=== PATIENT | male | born 1985 | race Caucasian/White ===

== ENCOUNTER 2023-03-21 14:38 | Emergency (ER) | payer MEDICAID, SELFPAY ==
[2023-03-21 14:41] VITALS: BP 112/62; PULSE 91; RESP 18; TEMP 36.3; O2SAT 99
--- NOTE | 2023-03-21 15:29 | ED.GENADUL_ITS ---
Discharge Plan Disposition Patient Disposition: Home Discharge Details Clinical Impression: Cellulitis of left leg without foot Primary Care Provider: Unknown,Unknown ED Provider: Sandor Chambers Home Meds and New Rx's Prescriptions: New cefpodoxime 200 mg tablet 200 mg PO Q12H 5 Days Qty: 10 0RF Rx Instructions: must administer with a meal/food sulfamethoxazole-trimethoprim [Bactrim DS] 800-160 mg tablet 1 tab PO BID 5 Days Qty: 10 0RF Discharge Instructions Instructions: Cellulitis (ED) Additional Instructions: You were seen in the emergency department for your red leg for which you were diagnosed with a skin infection called cellulitis. Please take these antibiotics as directed. If your swelling does not improve in the next 2 days or worsens or you develop fevers or cannot eat or drink as result of nausea or vomiting please return to the emergency department. Please also return if you develop worsening pain in your left lower extremity. Discharge Data Discharge Date/Time-TO BE ENTERED AT DEPARTURE: 03/21/23 16:23 HPI General Date/Time Provider Initiated Documentation: 03/21/23 14:46 . HPI Narrative: MDM This is an overall well-appearing afebrile and not tachycardic 37-year-old male with left lower extremity erythema and tenderness most consistent with cellulitis for which patient will receive oral treatment with trimethoprim/sulfamethoxazole and cefpodoxime. No pain out of proportion to suggest necrotizing soft tissue infection. No fluctuance to suggest abscess. No posterior calf tenderness to suggest DVT. No history of trauma to suggest acute osseous abnormalities will defer plain films. No reported IV drug use so I am not suspicious for any retained foreign bodies. Patient was not meeting SIRS criteria and did not appear septic so I did not obtain a lactate blood cultures nor treat empirically with IV antibiotics. Patient does not have a primary care locally. Given that he tolerated p.o. and denies any fevers I feel he warrants empiric trial of expectant outpatient management. I did counseling services manager him that the swelling could worsen over the next 48 hours but that it should improve from there. Patient is PERC negative and not short of breath. I strongly urged ED return for worsening swelling after 48 hours, any rapid changes in his pain, or any inability to tolerate p.o. Patient understood his return indications and we will proceed with empiric trial of expectant outpatient management. Chronic conditions affecting the care of the patient: Depression methadone use History obtained from an outside historian: Patient's External record [place] [facility] [place] Medications: Antibiotics Social determinants of health affecting disposition: N/A Management discussed with: N/A Treatment/interventions considered: Labs but deferred Response to therapies provided: N/A HPI This is a 37-year-old male on outpatient bupropion methadone and gabapentin arrives emergency department via private vehicle in the setting of left lower extremity redness which began yesterday. Patient denies any trauma to his left lower extremity. He does have some discomfort. He denies IV drug use. He has not been nauseous nor vomiting. He denies fevers and chills. No chest pain no abdominal pain. No history of PE nor DVT. No hemoptysis. Exam General: Well-appearing in no acute distress speaking in complete sentences. Head: Normocephalic, atraumatic. Eye: Extraocular eye movements intact. No conjunctival injection. No scleral icterus. Ear, nose, mouth, throat: Grossly normal inspection. Normal voice, handling secretions normally. Neck: Trachea midline. Cardiovascular: Well-perfused distal extremities. Respiratory: Nonlabored respiration. Gastrointestinal: Nondistended abdomen. Musculoskeletal: Overlying the anterior aspect of the left lower extremity from the distal third of the beatty there is an approximately 5 x 5 cm erythematous area which is mildly tender. No fluctuance. No pain out of proportion. Left foot warm and well-perfused with 2+ PT and DP pulses. Photo of affected area as follows: Skin: Normal for age and race, grossly normal temperature and turgor. No acute rash. Neurologic: Alert and appropriate, no apparent acute deficits. Psychiatric: Mood and manner are appropriate. Grooming and personal hygiene are appropriate. Related Data Home Medications Medication Instructions Recorded Confirmed cefpodoxime 200 mg tablet 200 mg PO Q12H 5 days #10 tabs 03/21/23 sulfamethoxazole 800 1 tab PO BID 5 days #10 tabs 03/21/23 mg-trimethoprim 160 mg tablet (Bactrim DS) Previous Rx's Medication Instructions Recorded cefpodoxime 200 mg tablet 200 mg PO Q12H 5 days #10 tabs 03/21/23 sulfamethoxazole 800 1 tab PO BID 5 days #10 tabs 03/21/23 mg-trimethoprim 160 mg tablet (Bactrim DS) Allergies Allergy/AdvReac Type Severity Reaction Status Date / Time cillian Allergy Unknown Uncoded 03/21/23 14:45 General Stated Complaint: Cellulitis SALVADOR: 3 PFSH All Active Problems (Updated 03/21/23 @ 15:56 by Sandor Chambers MD) Cellulitis of left leg without foot (Acute) Social History Smoking/Tobacco Use Status: Current-Occasional Tobacco Type: cigarettes Smoking risk assessment performed?: Yes Alcohol Intake: never Drug use: Daily Substance use type: marijuana Course Vital Signs Vital signs: Vital Signs Temperature 36.3 C L 03/21/23 14:41 Pulse 91 H 03/21/23 14:41 Respiratory Rate 18 03/21/23 14:41 Blood Pressure 112/62 03/21/23 14:41 Pulse Oximetry 99 03/21/23 14:41 Temperature 36.3 C L 03/21/23 14:41 Temperature Source Temporal Artery Scan 03/21/23 14:41 Pulse 91 H 03/21/23 14:41 Respiratory Rate 18 03/21/23 14:41 Respiratory Effort Normal, Non-Labored 03/21/23 14:45 Blood Pressure 112/62 03/21/23 14:41 Blood Pressure Position Sitting 03/21/23 14:41 Pulse Oximetry 99 03/21/23 14:41 Oxygen Delivery Method Room Air 03/21/23 14:41 Oxygen Flow Rate 0 03/21/23 14:41
[2023-03-21] MEDS: Cefpodoxime 200 MG TAB PO (16:09)
[2023-03-21] MEDS: Sulfameth/Trimeth DS TAB 1 TAB PO (16:09)
== END 2023-03-21 16:23 | disposition home or self-care (01) ==
PROVIDERS: Emergency Provider Emergency Medicine
DX: L03.116 Cellulitis of left lower limb (principal); F17.210 Nicotine dependence, cigarettes, uncomplicated
CPT/HCPCS: 99283

== ENCOUNTER 2023-04-29 17:24 | Emergency (ER) | payer MEDICAID, SELFPAY ==
[2023-04-29 17:27] VITALS: BP 128/101; PULSE 85; RESP 16; TEMP 36.7; O2SAT 99
--- NOTE | 2023-04-29 17:30 | DI.CT_ITS ---
Exam(s) CT CHEST/ABD/PEL W EXAM: CT CHEST/ABD/PEL W CLINICAL HISTORY: Hematemesis, SOB, epigastric pain, and chest pain TECHNIQUE: Imaging Protocol: Axial computed tomography images with coronal and sagittal reformatted images were created and reviewed CONTRAST MATERIAL: Intravenous: Omnipaque. Contrast volume:100 mL Oral: No COMPARISON: No exams were available for comparison FINDINGS: CHEST: Tracheobronchial tree: Patent where visualized. Pulmonary parenchyma: No consolidation or dominant measurable mass. No architectural distortion. Visualized thyroid gland: Unremarkable. Mediastinum and Linh: No dominant adenopathy or fluid collection. The esophagus is unremarkable. The re is triangular soft tissue seen in the anterior mediastinum most consistent with residual thymic ti ssue. Pleura: No effusion or pneumothorax. Heart: The heart is not dilated. No coronary artery calcifications are seen. No pericardial effusion. Pulmonary arteries: Due to the timing of the bolus, the opacification of the pulmonary arteries is in adequate for pulmonary emboli evaluation. No large central pulmonary emboli are seen. Aorta: Thoracic aorta non-dilated. Lymph nodes: Within normal limits. Soft tissues: Unremarkable. Bones:Within normal limits for the patient's age. ABDOMEN: Liver: Normal density. There is a 6 mm hypodensity in the anterior segment of the right lobe of the l iver. This may represent a small cyst or hemangioma. No follow-up is recommended. Portal, Superior Mesenteric, and Splenic Veins: Unremarkable. Gallbladder and Biliary Tract: No stones are seen. The common duct measures 1.1 cm. Pancreas: Normal density, no abnormal calcifications or inflammatory process. Spleen: Normal. Adrenals: No masses seen. Kidneys: Normal size, contour and axis. No radiodense stones or obstructive uropathy. No masses seen. Abdominal Aorta: Abdominal portion non-dilated. Bowel: There is mild wall thickening in the ascending colon and mild pericolonic inflammatory changes . There is no evidence of bowel obstruction. Appendix is unremarkable. Peritoneal Cavity: No ascites, collection or mesenteric inflammatory response. No free air. Lymph Nodes: Within normal limits. Bones: Within normal limits for the patient's age. Soft Tissues: Unremarkable. PELVIS: Bladder: Symmetric distention, no gross wall thickening. Reproductive Organs: Unremarkable as visualized. Lymph Nodes: Within normal limits. Bones: Within normal limits. IMPRESSION: 1. No acute pulmonary process. 2. Mild wall thickening seen in the ascending colon suspicious for colitis. 3. Dilatation of the extrahepatic common bile duct. No evidence of a pancreatic mass or cholelithias is. Right upper quadrant ultrasound is recommended for further evaluation. If further imaging is wa rranted, MRCP may be obtained. Unexpected findings RADIATION DOSE DELIVERED: Total DLP DATA REPOSITORY: All CT scans at this facility are submitted to the National Radiology Data Registry (NRDR) Dose Index Registry (DIR) with the [employer] ([employer]). RADIATION OPTIMIZATION: All CT scans at this facility use at least one of these dose optimization te chniques: automated exposure control; mA and/or kV adjustment per patient size (includes targeted exa ms where dose is matched to clinical indication); or iterative reconstruction.
--- NOTE | 2023-04-29 17:46 | W.ED.GENAD ---
Discharge Plan Disposition Patient Disposition: Home Condition: Good Discharge Details Clinical Impression: Nausea & vomiting Primary Care Provider: None,None ED Provider: Ar Pierce Home Meds and New Rx's Prescriptions: New sucralfate [Carafate] 1 gram tablet 1 g PO BID Qty: 60 0RF pantoprazole [Protonix] 40 mg tablet,delayed release (DR/EC) 40 mg PO DAILY Qty: 60 0RF famotidine 20 mg tablet 20 mg PO BID Qty: 60 0RF No Action gabapentin 300 mg capsule 300 mg PO TID methadone 10 mg/mL concentrate 120 mg PO QDAY Cotempla XR-ODT 25.9 mg tablet,disinteg ER biphase 24h 25.9 mg PO DAILY Patient Comments: pt states he takes 20mg BID Discharge Instructions Instructions: Gastritis (ED), Acute Nausea and Vomiting (ED) Additional Instructions: At this time your blood work has returned and your blood levels are all very normal. Your CAT scan shows no significant abnormalities thankfully. There is concern that you are having irritation in your stomach lining secondary to a virus and potentially the alcohol as well. It is important that you avoid any tomato-based products, citrus-based products, or spicy foods. Please avoid all alcohol intake. 3 medications have been sent to your pharmacy on file to help with your stomach irritation. Please take these as directed. Will place a referral with our surgeons for an outpatient surgical evaluation. Please follow-up with them when they contact you for the time. Please follow-up closely with your new primary care provider that you are at trying to establish care with at this time. If you notice any worsening of your symptoms, or any new symptoms such as vomiting, diarrhea, fever, chills, shortness of breath, chest pain, numbness, weakness, or fainting , please return immediately to the emergency department for reevaluation. Please follow up with your primary care provider as soon as possible for reassessment and reevaluation. As always, it was a pleasure participating in your medical care today. Referrals: Grzegorz Guzman MD [ [facility] STAFF PHYSICIAN] - Michelle Dela Cruz DO [OSTEOPATHIC DOCTOR] - Medical Decision Making This is a 37-year-old male with a past medical history of umbilical hernia repair in 2019, previous hepatitis C which was treated, previous significant alcohol abuse, prior opiate abuse, parotid mass, schizophrenia, depression, anxiety, and a reported history of gastric ulcer SIRS and esophageal varices (which could not be found on endoscopy report upon review from [facility] endoscopy note on 05/27/2019) who presents today for evaluation of vomiting, diarrhea, epigastric pain and right foot pain. Patient is currently homeless, he does not have a primary care physician, he does not seek care regularly from medical establishment, he is currently living in a tent, and he states that for the last few months he has had intermittent vomiting with small amounts of blood, however for the last 3 to 4 days he has had notable episodes of vomiting, with about 5 or more episodes per day. Small quarter sized amounts of blood were noted in the vomiting when it began 4 days ago, however at this point he states that there is about 10 quarter sized amounts of blood in his vomiting every time now. He also admits to a few episodes of loose stool which have also had a small amount of red blood noted in them. He did admit to drinking some alcohol 3 days ago secondary to having challenges with the stress and situation of life. He states that otherwise he has not been drinking any alcohol regularly. He is not taking any medications. He denies any other complaints in the upper GI system otherwise. He does admit to mild shortness of breath. He denies any significant chest pain. Additionally he also complains of pain between his fourth and fifth digit on the right foot/toes. He had been having wet shoes for quite some time and his current living predicament, but has been using dry shoes recently. No other complaints. Physical exam demonstrates mild epigastric tenderness, slightly pale skin hue, and a small area of breakdown in the intertriginous area between the fourth and fifth toe on the right foot. Differential is concerning for gastric ulcer causing bleeding and vomiting, pancreatitis, esophageal varices causing bleeding, less likely Annie-Arndt tear or Boerhaave's tear. However because of the patient's symptomatology, history, and clinical picture I do feel that ruling these out is certainly indicated in this scenario. Will get CT imaging of the chest and abdomen. Will rehydrate, give Protonix and famotidine and Carafate. If the patient has continued episodes of vomiting or blood here, we will start octreotide. Upon my review of [facility]'s last endoscopy note there did not appear to be any evidence of varices on that EGD. In fact most recent EGD in 2019 showed no significant abnormalities in the stomach or esophagus. I could not find any other records of prior endoscopy otherwise. Will hold off on octreotide for this reason at this time. We will type and screen, monitor closely rehydrate and reassess. I do feel that with the patient's current housing status, his current vomiting and reported bleeding, admission for stabilization and EGD is indicated. In regard to the patient's right foot, no emergent intervention indicated here at this time. I did recommend to the patient and his significant other who is at bedside that treatment will be from keeping space between the fourth and the fifth toe, allowing that area to dry, keeping socks and shoes regularly dry, and healing will occur with time as there is thankfully no evidence of infection currently. 9:58 PM On reassessment the patient is doing much better. He is tolerated p.o. well, no more vomiting. Abdominal pain is resolved. Vital signs remained stable. Laboratory workup shows no white count, hemoglobin normal, platelet count normal. Patient feels much better. I did contact the surgeon Dr. Buck who does not recommend any emergent interventions at this point. Chief recommendation is for outpatient PCP follow-up. Although admission and urgent EGD has not been recommended, I still do feel that the patient would benefit from outpatient surgical follow-up. The patient is currently having his records transferred to [facility] but has not been able to have an appointment with them yet. We will place a surgical referral for outpatient assessment. On reassessment patient no longer demonstrates any abdominal tenderness. With his ability to tolerate p.o. intact, no more vomiting, no evidence of hematemesis or diarrhea here whatsoever, I do feel that outpatient discharge with close surgical follow-up, and prompt return if his symptoms worsen or return is reasonable at this time. Family and patient agree. Patient will be discharged home. Discussed red flags for which to return. Will give a bottle of Zofran to go, as well as a prescription for Carafate Protonix and famotidine for home use. I have extensively reviewed the treatment plan and discharge instructions with the patient and their family. I have addressed all patient concerns at this time. The patient and family was made aware of what symptoms to monitor for that would warrant a return to the emergency department. Discussed the plan with the patient and family, they demonstrate verbal understanding and agreement with our assessment and plan at this time. The documentation in this chart was dictated using [employer] dictation software. Please excuse any dictation errors. FINDINGS: Lungs: Lungs are clear bilaterally. No consolidation. No infiltrates or edema. Pleural spaces: No pleural effusion. No pneumothorax. Heart: Normal heart size. No pericardial effusion. No coronary artery atherosclerotic calcium. Lymph nodes: Unremarkable. No enlarged lymph nodes. Vasculature: Thoracic aorta is unremarkable in appearance. Bones/joints: No acute skeletal pathology. Thoracic spine is unremarkable in appearance. Soft tissues: Chest wall soft tissues are unremarkable. IMPRESSION: 1. No acute findings of the lungs or pleural space. 2. Normal cardiac structures and mediastinal contents. FINDINGS: Liver: Liver is unremarkable in size and contour. There is a central right hepatic low-attenuation focus measuring 8 mm most consistent with a small benign cyst or possibly a hemangioma. No further imaging follow-up is recommended. Gallbladder and bile ducts: Partially contracted gallbladder. No gallstones. No biliary ductal dilatation or inflammatory features. Pancreas: The pancreas is normal in contour and attenuation. Spleen: The spleen is normal in size, contour and attenuation. Adrenal glands: The adrenal glands are normal in size and contour bilaterally. Kidneys and ureters: The kidneys bilaterally are unremarkable. Normal attenutation. No hydronephrosis. No calculi. Stomach and bowel: Gastric morphology is unremarkable. No edema. No gastric outlet obstruction. Small bowel loops with features suggesting an enteritis process. Minor fluid retention and scattered air-fluid levels. No gary edema. Large bowel is normal in course. There is mild edema of the right colon. Transverse colon and descending colon are unremarkable. Rectosigmoid region is unremarkable. Appendix: A non inflamed appendix is identified. Series 4: Images 111 through 114. Intraperitoneal space: No free fluid. No free air. Vasculature: Unremarkable. No abdominal aortic aneurysm. Lymph nodes: Unremarkable. No enlarged lymph nodes. Urinary bladder: Urinary bladder is unremarkable in appearance. No wall thickening. No intravesicular calculi. No intravesicular gas. Reproductive: Unremarkable as visualized. Bones/joints: No acute skeletal changes. Soft tissues: Unremarkable. IMPRESSION: 1. Enterocolitis process without mechanical obstruction. No ischemic features. 2. No free fluid or free air Thank you for allowing us to participate in the care of your patient. Dictated and Authenticated by: Christiano Darby MD 04/29/2023 9:27 PM Eastern Time ([place] & [place]) HPI General Date/Time Provider Initiated Documentation: 04/29/23 17:26. HPI Narrative: This is a 37-year-old male with a past medical history of umbilical hernia repair in 2019, previous hepatitis C which was treated, previous significant alcohol abuse, prior opiate abuse, parotid mass, schizophrenia, depression, anxiety, and a reported history of gastric ulcer SIRS and esophageal varices (which could not be found on endoscopy report upon review from [facility] endoscopy note on 05/27/2019) who presents today for evaluation of vomiting, diarrhea, epigastric pain and right foot pain. Patient is currently homeless, he does not have a primary care physician, he does not seek care regularly from medical establishment, he is currently living in a tent, and he states that for the last few months he has had intermittent vomiting with small amounts of blood, however for the last 3 to 4 days he has had notable episodes of vomiting, with about 5 or more episodes per day. Small quarter sized amounts of blood were noted in the vomiting when it began 4 days ago, however at this point he states that there is about 10 quarter sized amounts of blood in his vomiting every time now. He also admits to a few episodes of loose stool which have also had a small amount of red blood noted in them. He did admit to drinking some alcohol 3 days ago secondary to having challenges with the stress and situation of life. He states that otherwise he has not been drinking any alcohol regularly. He is not taking any medications. He denies any other complaints in the upper GI system otherwise. He does admit to mild shortness of breath. He denies any significant chest pain. Additionally he also complains of pain between his fourth and fifth digit on the right foot/toes. He had been having wet shoes for quite some time and his current living predicament, but has been using dry shoes recently. No other complaints. Related Data Home Medications Medication Instructions Recorded Confirmed famotidine 20 mg tablet 20 mg PO BID #60 tabs 04/29/23 gabapentin 300 mg capsule 300 mg PO TID 04/29/23 04/29/23 methadone 10 mg/mL oral concentrate 120 mg PO QDAY 04/29/23 04/29/23 methylphenidate 25.9 mg ER,IR 25.9 mg PO DAILY 04/29/23 04/29/23 disintegrating 24 hr tablet (Cotempla XR-ODT) pantoprazole 40 mg tablet,delayed 40 mg PO DAILY #60 tabs 04/29/23 release (Protonix) sucralfate 1 gram tablet (Carafate) 1 g PO BID #60 tabs 04/29/23 Previous Rx's Medication Instructions Recorded famotidine 20 mg tablet 20 mg PO BID #60 tabs 04/29/23 pantoprazole 40 mg tablet,delayed 40 mg PO DAILY #60 tabs 04/29/23 release (Protonix) sucralfate 1 gram tablet (Carafate) 1 g PO BID #60 tabs 04/29/23 Allergies Allergy/AdvReac Type Severity Reaction Status Date / Time cillian Allergy Unknown Uncoded 04/29/23 17:31 General Stated Complaint: Abd Prob SALVADOR: 3 Review of Systems All systems reviewed & are unremarkable except as noted in HPI and below PFSH All Active Problems (Updated 04/29/23 @ 21:45 by Ar Pierce DO) Nausea & vomiting (Acute) Social History Smoking/Tobacco Use Status: Current every day Tobacco Type: cigarettes Smoking risk assessment performed?: Yes Alcohol Intake: current Alcohol Intake frequency: holidays/special occasions only Alcohol type: hard liquor Drug use: Daily Substance use type: marijuana Housing: homeless Do you feel safe at home: Yes Do you feel safe in your relationship?: Yes Exam Narrative Exam Narrative: 1.Const: Well-nourished, Well-developed, appearing stated age 2.Eyes: PERRL, no conjunctival injection, and symmetrical lids. 3.ENT: Atraumatic external nose and ears. Moist MM. Neck: Symmetric, trachea midline, No thyromegaly. 4.CVS: +S1/S2, No murmurs or gallops. Peripheral pulses 2+ and equal in all extremities. Brisk capillary refill in all extremities. 5.RESP: Unlabored respiratory effort. Clear to auscultation bilaterally. No wheezes rales or rhonchi 6.GI: Soft, nondistended. Epigastric tenderness is noted on palpation. No pain to the lower abdomen. 7.MSK: Normocephalic/Atraumatic, Extremities w/o deformity or ttp No cyanosis or clubbing, Normal movement of all extremities. Evaluation of the interdigital space between the fourth and fifth digit on the right foot demonstrates an area of breakdown in the superfluous skin fold. There appears to be no evidence of redness or active infectious ulceration. The skin itself is broken down causing a small cavity in the superfluous skin, but not going into the body of the foot. No drainage or discharge. The remainder of his toes are otherwise unremarkable on exam. 8.Skin: Warm, Dry. 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 Sensation grossly intact, no focal neurologic deficits. 10.Psych: (AAO) x3. Appropriate mood and affect Course Vital Signs Vital signs: Vital Signs Temperature 36.7 C 04/29/23 17:27 Pulse 85 04/29/23 17:27 Respiratory Rate 16 04/29/23 17:27 Blood Pressure 128/101 H 04/29/23 17:27 Pulse Oximetry 99 04/29/23 17:27 Temperature 36.7 C 04/29/23 17:27 Temperature Source Oral 04/29/23 17:27 Pulse 85 04/29/23 17:27 Respiratory Rate 16 04/29/23 17:27 Blood Pressure 128/101 H 04/29/23 17:27 Blood Pressure Position Sitting 04/29/23 17:27 Pulse Oximetry 99 04/29/23 17:27 Oxygen Delivery Method Room Air 04/29/23 17:27 Oxygen Flow Rate 0 04/29/23 17:27
[2023-04-29] MEDS: Normal Saline 1,000 ML 1000 ML IV (18:02)
[2023-04-29] MEDS: Famotidine 20 MG/2 ML VIAL IVP (18:03)
[2023-04-29] MEDS: Ondansetron 4 MG/2 ML VIAL IVP (18:04)
[2023-04-29] MEDS: Pantoprazole 40 MG VIAL IVP (18:04)
[2023-04-29] MEDS: Sucralfate 1 GM TAB PO (18:04)
[2023-04-29 18:18] LABS: Abs Immature Grans 0.02 10^3/uL (0.0-0.06); Absolute Basophil Count 0.05 10^3/uL (0.0-0.2); Absolute Eosinophil Count 0.04 10^3/uL (0.0-0.7); Absolute Lymphocyte Count 2.16 10^3/uL (1.2-3.4); Absolute Monocyte Count 0.45 10^3/uL (0.1-0.8); Absolute Neutrophil Count 4.28 10^3/uL (1.2-6.7); Basophils % 0.7; Eosinophils % 0.6; HCT 42.5 % (40.0-50.0); HGB 13.9 g/dL (13.5-17.5); Immature Grans % 0.3; Lymphocytes % 30.9; MCH 27.3 pg (27.0-33.0); MCHC 32.7 % (32.0-36.0); MCV 83 fL (80-95); MPV 10.3 fL (8.0-11.0); Monocytes % 6.4; Neutrophils % 61.1; Platelet Count 284 10^3/uL (130-400); RDW 13.2 % (11.8-14.1); RDW-SD 40.1 fL
[2023-04-29 18:30] LABS: PTT Activated 26.3 sec (23.6-32.8); Prothrombin Time 10.4 sec (9.1-11.1)
[2023-04-29 18:34] LABS: ALT 33 U/L (16-63); AST 26 U/L (15-37); Albumin 4.3 g/dL (3.4-5.0); Alkaline Phosphatase 84 U/L (46-116); Anion Gap 13.2 mmol/L (3-11); BUN 16 mg/dL (7-18); Bilirubin, Total 0.3 mg/dL (0.2-1.0); CO2 26.8 mmol/L (21.0-32.0); CREATININE 1.2 mg/dL (0.70-1.30); Calcium 9.5 mg/dL (8.5-10.1); Chloride 103 mmol/L (98-107); Estimated GFR 80.88 (mL/min/1.73m2); Glucose 85 mg/dL (74-106); Lipase 25 U/L (16-77); Potassium 3.6 mmol/L (3.5-5.1); Sodium 143 mmol/L (136-145); Total Protein 7.9 g/dL (6.4-8.2)
[2023-04-29 18:37] LABS: Magnesium 2.2 mg/dL (1.8-2.4)
[2023-04-29 19:21] VITALS: PULSE 70; RESP 18; O2SAT 98
[2023-04-29] MEDS: Omnipaque 350 MG/ML 100 ML BTL IJ (20:03)
--- NOTE | 2023-04-29 21:27 | DI.VRAD_ITS ---
PROCEDURE INFORMATION: Exam: CT Chest With Contrast; Diagnostic Exam date and time: 04/29/2023 7:51 PM Age: 37 years old Clinical indication: Other: Epigastric pain; Shortness of breath TECHNIQUE: Imaging protocol: Diagnostic computed tomography of the chest with contrast. 3D rendering (Not supervised by radiologist): MIP and/or 3D reconstructed images were created by the technologist. Contrast material: OMNIPAQUE 350; Contrast volume: 100 ml; Contrast route: INTRAVENOUS (IV); COMPARISON: No relevant prior studies available. FINDINGS: Lungs: Lungs are clear bilaterally. No consolidation. No infiltrates or edema. Pleural spaces: No pleural effusion. No pneumothorax. Heart: Normal heart size. No pericardial effusion. No coronary artery atherosclerotic calcium. Lymph nodes: Unremarkable. No enlarged lymph nodes. Vasculature: Thoracic aorta is unremarkable in appearance. Bones/joints: No acute skeletal pathology. Thoracic spine is unremarkable in appearance. Soft tissues: Chest wall soft tissues are unremarkable. IMPRESSION: 1. No acute findings of the lungs or pleural space. 2. Normal cardiac structures and mediastinal contents. PROCEDURE INFORMATION: Exam: CT Abdomen And Pelvis With Contrast Exam date and time: 04/29/2023 7:51 PM Age: 37 years old Clinical indication: Other: Epigastric pain; Shortness of breath TECHNIQUE: Imaging protocol: Computed tomography of the abdomen and pelvis with contrast. 3D rendering (Not supervised by radiologist): MIP and/or 3D reconstructed images were created by the technologist. Contrast material: OMNIPAQUE 350; Contrast volume: 100 ml; Contrast route: INTRAVENOUS (IV); COMPARISON: No relevant prior studies available. FINDINGS: Liver: Liver is unremarkable in size and contour. There is a central right hepatic low-attenuation focus measuring 8 mm most consistent with a small benign cyst or possibly a hemangioma. No further imaging follow-up is recommended. Gallbladder and bile ducts: Partially contracted gallbladder. No gallstones. No biliary ductal dilatation or inflammatory features. Pancreas: The pancreas is normal in contour and attenuation. Spleen: The spleen is normal in size, contour and attenuation. Adrenal glands: The adrenal glands are normal in size and contour bilaterally. Kidneys and ureters: The kidneys bilaterally are unremarkable. Normal attenutation. No hydronephrosis. No calculi. Stomach and bowel: Gastric morphology is unremarkable. No edema. No gastric outlet obstruction. Small bowel loops with features suggesting an enteritis process. Minor fluid retention and scattered air-fluid levels. No gary edema. Large bowel is normal in course. There is mild edema of the right colon. Transverse colon and descending colon are unremarkable. Rectosigmoid region is unremarkable. Appendix: A non inflamed appendix is identified. Series 4: Images 111 through 114. Intraperitoneal space: No free fluid. No free air. Vasculature: Unremarkable. No abdominal aortic aneurysm. Lymph nodes: Unremarkable. No enlarged lymph nodes. Urinary bladder: Urinary bladder is unremarkable in appearance. No wall thickening. No intravesicular calculi. No intravesicular gas. Reproductive: Unremarkable as visualized. Bones/joints: No acute skeletal changes. Soft tissues: Unremarkable. IMPRESSION: 1. Enterocolitis process without mechanical obstruction. No ischemic features. 2. No free fluid or free air Dictated and Authenticated by: Christiano Darby MD. Ordering:MIGUEL A Joyner MD
--- NOTE | 2023-04-29 21:44 | NUR.NOTE ---
Referral faxed to [facility] to f/u in 1-2 weeks for UGI Bleed.Nursing Note:
[2023-04-29 22:15] VITALS: BP 120/70; PULSE 80; RESP 16; TEMP 36.5; O2SAT 99
[2023-04-29] MEDS: Ondansetron O.D.T. 4 MG TABEF, 3 TABS/BTL PO (22:21)
== END 2023-04-29 22:25 | disposition home or self-care (01) ==
PROVIDERS: Emergency Provider Student in an Organized Health Care Education/Training Program
DX: R11.2 Nausea with vomiting, unspecified (principal); R10.13 Epigastric pain; F17.210 Nicotine dependence, cigarettes, uncomplicated; Z59.02 Unsheltered homelessness
CPT/HCPCS: 74177; 80053; 83690; 86850; 86900; 86901; 96361; 96374; 96375; 99285; 71260; 83735; 85025; 85610; 85730; 99284; J2405; J3490

== ENCOUNTER 2023-07-20 12:33 | Emergency (ER) | payer MEDICAID, SELFPAY ==
[2023-07-20 12:44] VITALS: BP 102/50; PULSE 55; RESP 18; TEMP 36.8; O2SAT 97
--- NOTE | 2023-07-20 13:06 | W.ED.GENAD ---
Discharge Plan Disposition Patient Disposition: Home Condition: Stable Discharge Details Clinical Impression: Tooth pain Primary Care Provider: None,None ED Provider: Cynthia Hsu Home Meds and New Rx's Prescriptions: New clindamycin HCl 150 mg capsule 450 mg PO TID 7 Days Qty: 63 0RF ibuprofen 800 mg tablet 800 mg PO TID PRN (Reason: pain) Qty: 20 0RF No Action gabapentin 300 mg capsule 600 mg PO TID methadone 10 mg/mL concentrate 130 mg PO QDAY sucralfate [Carafate] 1 gram tablet 1 g PO BID Qty: 60 0RF pantoprazole [Protonix] 40 mg tablet,delayed release (DR/EC) 40 mg PO DAILY Qty: 60 0RF methylphenidate HCl 20 mg tablet 20 mg PO BID bupropion HCl 100 mg tablet 200 mg PO BID Discharge Instructions Instructions: Toothache (ED) Additional Instructions: Practice good oral hygiene, rinse mouth out after eating or drinking anything. Apply the hurricaine gel up to three times daily as needed. Please take Tylenol or Ibuprofen with food every 4-6 hours as needed for pain and swelling. Please follow-up with a dentist soon as possible. Follow up with primary care provider in 3-5 days. Return to ED sooner if any worsening or concerns. Increase oral fluids. Discharge Data Discharge Date/Time-TO BE ENTERED AT DEPARTURE: 07/20/23 13:52 HPI General Mode of arrival: ambulatory. Date/Time Provider Initiated Documentation: 07/20/23 12:48. Limitations to Documentation: no limitations. Information obtained by: patient, RN notes reviewed and old records reviewed. HPI Narrative: 37 year old male presents to the ED with chief complaint of left lower tooth broken and swelling with increased swelling which began last night. No area of fluctuance or drainage noted. Has not taken any medications prior to arrival. Related Data Home Medications Medication Instructions Recorded Confirmed gabapentin 300 mg capsule 600 mg PO TID 04/29/23 07/20/23 methadone 10 mg/mL oral concentrate 130 mg PO QDAY 04/29/23 07/20/23 pantoprazole 40 mg tablet,delayed 40 mg PO DAILY #60 tabs 04/29/23 07/20/23 release (Protonix) sucralfate 1 gram tablet (Carafate) 1 g PO BID #60 tabs 04/29/23 07/20/23 bupropion HCl 100 mg tablet 200 mg PO BID 07/20/23 07/20/23 clindamycin HCl 150 mg capsule 450 mg (3 x 150 mg) PO TID 7 days 07/20/23 #63 caps ibuprofen 800 mg tablet 800 mg PO TID PRN pain #20 tabs 07/20/23 methylphenidate HCl 20 mg tablet 20 mg PO BID 07/20/23 07/20/23 Previous Rx's Medication Instructions Recorded pantoprazole 40 mg tablet,delayed 40 mg PO DAILY #60 tabs 04/29/23 release (Protonix) sucralfate 1 gram tablet (Carafate) 1 g PO BID #60 tabs 04/29/23 clindamycin HCl 150 mg capsule 450 mg (3 x 150 mg) PO TID 7 days 07/20/23 #63 caps ibuprofen 800 mg tablet 800 mg PO TID PRN pain #20 tabs 07/20/23 Allergies Allergy/AdvReac Type Severity Reaction Status Date / Time Penicillins Allergy Severe Anaphylaxis Verified 07/20/23 12:44 General Stated Complaint: DentalOral SALVADOR: 4 Review of Systems ENT Ears, Nose, Mouth, and Throat: Reports as per HPI and Reports mouth pain Exam [facility] Teeth image: 1. Broken, surrounding gingival swelling, no abscess or area of fluctuance Course Vital Signs Vital signs: Vital Signs Temperature 36.8 C 07/20/23 12:44 Pulse 55 L 07/20/23 12:44 Respiratory Rate 18 07/20/23 12:44 Blood Pressure 102/50 L 07/20/23 12:44 Pulse Oximetry 97 07/20/23 12:44 Temperature 36.8 C 07/20/23 12:44 Temperature Source Temporal Artery Scan 07/20/23 12:44 Pulse 55 L 07/20/23 12:44 Respiratory Rate 18 07/20/23 12:44 Blood Pressure 102/50 L 07/20/23 12:44 Blood Pressure Position Sitting 07/20/23 12:44 Pulse Oximetry 97 07/20/23 12:44 Oxygen Delivery Method Room Air 07/20/23 12:44 Oxygen Flow Rate 0 07/20/23 12:44 Pain Level 5 07/20/23 12:44 Medical Decision Making 37 year old male presents to the ED with chief complaint of left lower tooth broken and swelling with increased swelling which began last night. No area of fluctuance or drainage noted. Has not taken any medications prior to arrival. Hurricaine gel, Clindamycin, and 800mg Ibuprofen ordered. Will give dental resources and home care. This text was generated using [employer] dictation system, please disregard any oddities of phrase or misspellings. Quality:SDOH Health Related Social Needs: No Data to Display PFSH All Active Problems (Updated 07/20/23 @ 13:09 by Cynthia Hsu NP) Tooth pain (Acute) Social History Smoking/Tobacco Use Status: Current every day Tobacco Type: cigarettes Smoking risk assessment performed?: Yes Alcohol Intake: current Alcohol Intake frequency: holidays/special occasions only Alcohol type: hard liquor Drug use: Daily Substance use type: marijuana Housing: homeless Do you feel safe at home: Yes Do you feel safe in your relationship?: Yes
[2023-07-20] MEDS: Benzocaine 20% Gel 30 GM JAR MM (13:26)
[2023-07-20] MEDS: Ibuprofen 800 MG TAB PO (13:27)
[2023-07-20] MEDS: Clindamycin 150 MG CAP 450 MG PO (13:27)
== END 2023-07-20 13:52 | disposition home or self-care (01) ==
PROVIDERS: Emergency Provider Registered Nurse Emergency
DX: S02.5XXA Fracture of tooth (traumatic), initial encounter for closed fracture (principal); F17.210 Nicotine dependence, cigarettes, uncomplicated; X58.XXXA Exposure to other specified factors, initial encounter
CPT/HCPCS: 99283

== ENCOUNTER 2023-07-25 13:45 | Emergency (ER) | payer MEDICAID, SELFPAY ==
[2023-07-25 13:56] VITALS: BP 129/54; PULSE 60; RESP 18; TEMP 36.4; O2SAT 98
--- NOTE | 2023-07-25 14:35 | ED.GENADUL_ITS ---
Discharge Plan Disposition Patient Disposition: Home Condition: Stable Discharge Details Chief Complaint: Sorethroat Clinical Impression: Viral illness Primary Care Provider: Unknown,Unknown ED Provider: Wilver Vega Home Meds and New Rx's Prescriptions: No Action gabapentin 300 mg capsule 600 mg PO TID methadone 10 mg/mL concentrate 130 mg PO QDAY sucralfate [Carafate] 1 gram tablet 1 g PO BID Qty: 60 0RF pantoprazole [Protonix] 40 mg tablet,delayed release (DR/EC) 40 mg PO DAILY Qty: 60 0RF methylphenidate HCl 20 mg tablet 20 mg PO BID bupropion HCl 100 mg tablet 200 mg PO BID clindamycin HCl 150 mg capsule 450 mg PO TID 7 Days Qty: 63 0RF ibuprofen 800 mg tablet 800 mg PO TID PRN (Reason: pain) Qty: 20 0RF Discharge Instructions Instructions: Viral Syndrome (ED) Additional Instructions: Please follow-up with primary care referral. HPI General Date/Time Provider Initiated Documentation: 07/25/23 13:47 . HPI Narrative: 37-year-old male presents with headache and sore throat over the last day, exposed to son who has strep throat. Related Data Home Medications Medication Instructions Recorded Confirmed gabapentin 300 mg capsule 600 mg PO TID 04/29/23 07/20/23 methadone 10 mg/mL oral concentrate 130 mg PO QDAY 04/29/23 07/20/23 pantoprazole 40 mg tablet,delayed 40 mg PO DAILY #60 tabs 04/29/23 07/20/23 release (Protonix) sucralfate 1 gram tablet (Carafate) 1 g PO BID #60 tabs 04/29/23 07/20/23 bupropion HCl 100 mg tablet 200 mg PO BID 07/20/23 07/20/23 clindamycin HCl 150 mg capsule 450 mg (3 x 150 mg) PO TID 7 days 07/20/23 #63 caps ibuprofen 800 mg tablet 800 mg PO TID PRN pain #20 tabs 07/20/23 methylphenidate HCl 20 mg tablet 20 mg PO BID 07/20/23 07/20/23 Previous Rx's Medication Instructions Recorded pantoprazole 40 mg tablet,delayed 40 mg PO DAILY #60 tabs 04/29/23 release (Protonix) sucralfate 1 gram tablet (Carafate) 1 g PO BID #60 tabs 04/29/23 clindamycin HCl 150 mg capsule 450 mg (3 x 150 mg) PO TID 7 days 07/20/23 #63 caps ibuprofen 800 mg tablet 800 mg PO TID PRN pain #20 tabs 07/20/23 Allergies Allergy/AdvReac Type Severity Reaction Status Date / Time Penicillins Allergy Severe Anaphylaxis Verified 07/20/23 12:44 General Stated Complaint: Sorethroat SALVADOR: 4 Review of Systems Narrative: Review of Systems Constitutional: Headache Eyes: negative ENT: Sore throat Cardiovascular: negative Respiratory: negative Gastrointestinal: negative : negative Musculoskeletal: negative Skin: negative Neurologic: negative Psych: negative Exam Narrative Exam Narrative: Physical Examination General: alert, awake, cooperative, resting comfortably, no acute distress HEENT: normocephalic, atraumatic Neck: supple, trachea midline; full ROM Chest: normal to inspection Respiratory: normal respiratory effort, speaking in full sentences Skin: no lesions, rashes or trauma appreciated Neuro: AAOx3, normal speech, moving all extremities Course Vital Signs Vital signs: Vital Signs Temperature 36.4 C L 07/25/23 13:56 Pulse 60 07/25/23 13:56 Respiratory Rate 18 07/25/23 13:56 Blood Pressure 129/54 L 07/25/23 13:56 Pulse Oximetry 98 07/25/23 13:56 Temperature 36.4 C L 07/25/23 13:56 Pulse 60 07/25/23 13:56 Respiratory Rate 18 07/25/23 13:56 Blood Pressure 129/54 L 07/25/23 13:56 Blood Pressure Position Sitting 07/25/23 13:56 Pulse Oximetry 98 07/25/23 13:56 Oxygen Delivery Method Room Air 07/25/23 13:56 Oxygen Flow Rate 0 07/25/23 13:56 Lab/Test Results Lab/Test Results: 07/25/23 14:33 Tonsil - Not Specified Group A Streptococcus Culture - Pending POC Strep Test-CLEMENCIA(Rapid) Start: 07/25/23 14:10 Freq: Status: Active Protocol: Document 07/25/23 14:10 JAY (Rec: 07/25/23 14:10 JAY [id number]) Strep test-CLEMENCIA(Rapid)-POC POC-Strep test-CLEMENCIA (Rapid) Negative POC-Strep test-CLEMENCIA (Rapid) Negative Medical Decision Making 37-year-old male presents with 1 day of fatigue, headache, sore throat exposed to son who has strep throat. Afebrile nontoxic. Strep negative. Maintaining her tongue secretions. No respiratory distress likely viral illness. Low suspicion for pneumonia or deep space infection of the head or neck. Will provide analgesia anti-inflammatory in the form of dexamethasone. Home care instructions return precautions Quality:SDOH Health Related Social Needs: No Data to Display PFSH All Active Problems (Updated 07/25/23 @ 14:39 by Wilver Vega MD) Viral illness (Acute) Tooth pain (Acute) Social History Smoking/Tobacco Use Status: Current every day Tobacco Type: cigarettes Smoking risk assessment performed?: Yes Alcohol Intake: current Alcohol Intake frequency: holidays/special occasions only Alcohol type: hard liquor Drug use: Daily Substance use type: marijuana Housing: homeless Do you feel safe at home: Yes Do you feel safe in your relationship?: Yes
[2023-07-25] MEDS: Dexamethasone 10 MG/ML VIAL PO (14:50)
--- NOTE | 2023-07-25 14:55 | NUR.NOTE ---
Referral given to Care Management for needs PCP, establish care, routine follow up. Nursing Note:
== END 2023-07-25 14:51 | disposition home or self-care (01) ==
PROVIDERS: Emergency Provider Emergency Medicine
DX: R11.10 Vomiting, unspecified (principal); R07.0 Pain in throat; R51.9 Headache, unspecified; B34.9 Viral infection, unspecified
CPT/HCPCS: 87880; 99283; 87081; J1100

== ENCOUNTER 2023-07-30 23:18 | Emergency (ER) | payer MEDICAID, SELFPAY ==
[2023-07-30 23:20] VITALS: BP 139/89; PULSE 87; RESP 18; TEMP 30.2; O2SAT 98
[2023-07-30] MEDS: Ketorolac 30 MG/ML VIAL IM (23:56)
--- NOTE | 2023-07-30 23:59 | ED.GENADUL_ITS ---
Discharge Plan Disposition Patient Disposition: Home Condition: Good Discharge Details Clinical Impression: Pain, dental Primary Care Provider: Unknown,Unknown ED Provider: Ar Pierce Home Meds and New Rx's Prescriptions: New clindamycin HCl 150 mg capsule 450 mg PO QID 10 Days Qty: 120 0RF No Action gabapentin 300 mg capsule 600 mg PO TID methadone 10 mg/mL concentrate 130 mg PO QDAY sucralfate [Carafate] 1 gram tablet 1 g PO BID Qty: 60 0RF pantoprazole [Protonix] 40 mg tablet,delayed release (DR/EC) 40 mg PO DAILY Qty: 60 0RF methylphenidate HCl 20 mg tablet 20 mg PO BID bupropion HCl 100 mg tablet 200 mg PO BID ibuprofen 800 mg tablet 800 mg PO TID PRN (Reason: pain) Qty: 20 0RF Discharge Instructions Instructions: Toothache (ED) Additional Instructions: Please take the antibiotic as directed. Please follow-up closely with your dentist. Please make sure to call them twice daily, everyone on the list, until you find someone to manage your dental pain/surgical needs. If you notice any worsening of your symptoms, or any new symptoms such as vomiting, diarrhea, fever, chills, shortness of breath, chest pain, numbness, weakness, or fainting , please return immediately to the emergency department for reevaluation. Please follow up with your primary care provider as soon as possible for reassessment and reevaluation. As always, it was a pleasure participating in your medical care today. HPI General Date/Time Provider Initiated Documentation: 07/30/23 23:25 . HPI Narrative: This is a pleasant 37-year-old male with a past medical history of dental caries, methadone use, who is currently homeless, presents today for evaluation of dental pain. Patient was seen initially on 07/20/2023, dental caries were noted on the left, he was prescribed clindamycin 450mg 3 times daily And has been taking that as prescribed. The patient states that his symptoms on the left have improved, however he now has dental pain on the right upper and right lower area. Patient was given a dental sheet, however he has not been able to get a hold of a dentist yet. He denies fever or chills. No difficulty swallowing. No other complaints at this time. Related Data Home Medications Medication Instructions Recorded Confirmed gabapentin 300 mg capsule 600 mg PO TID 04/29/23 07/30/23 methadone 10 mg/mL oral concentrate 130 mg PO QDAY 04/29/23 07/30/23 pantoprazole 40 mg tablet,delayed 40 mg PO DAILY #60 tabs 04/29/23 07/30/23 release (Protonix) sucralfate 1 gram tablet (Carafate) 1 g PO BID #60 tabs 04/29/23 07/30/23 bupropion HCl 100 mg tablet 200 mg PO BID 07/20/23 07/30/23 ibuprofen 800 mg tablet 800 mg PO TID PRN pain #20 tabs 07/20/23 07/30/23 methylphenidate HCl 20 mg tablet 20 mg PO BID 07/20/23 07/30/23 clindamycin HCl 150 mg capsule 450 mg (3 x 150 mg) PO QID 10 days 07/30/23 #120 caps Previous Rx's Medication Instructions Recorded pantoprazole 40 mg tablet,delayed 40 mg PO DAILY #60 tabs 04/29/23 release (Protonix) sucralfate 1 gram tablet (Carafate) 1 g PO BID #60 tabs 04/29/23 ibuprofen 800 mg tablet 800 mg PO TID PRN pain #20 tabs 07/20/23 clindamycin HCl 150 mg capsule 450 mg (3 x 150 mg) PO QID 10 days 07/30/23 #120 caps Allergies Allergy/AdvReac Type Severity Reaction Status Date / Time Penicillins Allergy Severe Anaphylaxis Verified 07/30/23 23:27 General Stated Complaint: DentalOral SALVADOR: 4 Review of Systems All systems reviewed & are unremarkable except as noted in HPI and below Exam Narrative Exam Narrative: 1.Const: Well-nourished, Well-developed, appearing stated age 2.Eyes: PERRL, no conjunctival injection, and symmetrical lids. 3.ENT: Atraumatic external nose and ears. Moist MM. Neck: Symmetric, trachea midline, No thyromegaly. Notable dental caries throughout. No periapical abscess. No evidence of Ludewig's angina. No signs of airway compromise. 4.CVS: +S1/S2, No murmurs or gallops. Peripheral pulses 2+ and equal in all extremities. Brisk capillary refill in all extremities. 5.RESP: Unlabored respiratory effort. Clear to auscultation bilaterally. No wheezes rales or rhonchi 6.GI: Soft, Nontender/Nondistended, No hepatosplenomegaly. No guarding or rebound. 7.MSK: Normocephalic/Atraumatic, Extremities w/o deformity or ttp No cyanosis or clubbing, Normal movement of all extremities 8.Skin: Warm, Dry. No rashes or lesions. 9.Neuro: light fixture servicer II-XII grossly intact. Sensation grossly intact, no focal neurologic deficits. 10.Psych: (AAO) x3. Appropriate mood and affect Course Vital Signs Vital signs: Vital Signs Temperature 30.2 C L 07/30/23 23:20 Pulse 87 07/30/23 23:20 Respiratory Rate 18 07/30/23 23:20 Blood Pressure 139/89 07/30/23 23:20 Pulse Oximetry 98 07/30/23 23:20 Temperature 30.2 C L 07/30/23 23:20 Pulse 87 07/30/23 23:20 Respiratory Rate 18 07/30/23 23:20 Respiratory Effort Normal 07/30/23 23:24 Blood Pressure 139/89 07/30/23 23:20 Pulse Oximetry 98 07/30/23 23:20 Oxygen Delivery Method Room Air 07/30/23 23:20 Oxygen Flow Rate 0 07/30/23 23:20 Pain Level 7 07/30/23 23:20 Medical Decision Making This is a pleasant 37-year-old male with a past medical history of de ntal caries, methadone use, who is currently homeless, presents today for evaluation of dental pain. Patient was seen initially on 07/20/2023, dental caries were noted on the left, he was prescribed clindamycin 450mg 3 times daily And has been taking that as prescribed. The patient states that his symptoms on the left have improved, however he now has dental pain on the right upper and right lower area. Patient was given a dental sheet, however he has not been able to get a hold of a dentist yet. He denies fever or chills. No difficulty swallowing. No other complaints at this time. Exam demonstrates well-appearing male, notable severe dental caries throughout. No evidence of periapical abscess, Ludewig's angina or other concerning abnormality though. I had a long discussion with the patient discussed nuno the importance of dentist follow-up. Recommend calling all the dental offices on the list twice per day until he is able to get somewhere as this will be the solution for his problem. Unfortunately we are at the point of maxing out our antibacterial coverage. Patient does have a penicillin allergy. We will continue the clindamycin for an additional 7 days, at 450 every 6 hours. Which will be an additional dosing per day. I did offer a dental block, however the patient has refused this. Recommend continued NSAIDs at home. Discussed red flags which to return. I have extensively reviewed the treatment plan and discharge instructions with the patient. I have addressed all patient concerns at this time. The patient was made aware of what symptoms to monitor for that would warrant a return to the emergency department. Discussed the plan with the patient, they demonstrate verbal understanding and agreement with our assessment and plan at this time. The documentation in this chart was dictated using [employer] dictation software. Please excuse any dictation errors. Quality:SDOH Health Related Social Needs: No Data to Display PFSH All Active Problems Pain, dental (Acute) Viral illness (Acute) Tooth pain (Acute) Social History Smoking/Tobacco Use Status: Current every day Tobacco Type: cigarettes Smoking risk assessment performed?: Yes Alcohol Intake: former Drug use: Current Sobriety Housing: homeless Do you feel safe at home: Yes Do you feel safe in your relationship?: Yes
[2023-07-31] VITALS: RESP 18; TEMP 36.6
== END 2023-07-31 00:01 | disposition home or self-care (01) ==
LOC: ER 23:55
PROVIDERS: Emergency Provider Student in an Organized Health Care Education/Training Program
DX: R68.84 Jaw pain (principal); Z59.00 Homelessness unspecified; K08.89 Other specified disorders of teeth and supporting structures
CPT/HCPCS: 96372; 99283; J1885

== ENCOUNTER 2023-08-28 18:40 | Emergency (ER) | payer MEDICAID, SELFPAY ==
[2023-08-28 18:59] VITALS: BP 121/79; PULSE 88; RESP 16; TEMP 36.4
[2023-08-28] MEDS: Clindamycin 150 MG CAP, 12 CAPS/BTL 450 MG PO (19:31)
--- NOTE | 2023-08-28 19:46 | ED.GENADUL_ITS ---
Discharge Plan Disposition Patient Disposition: Home Condition: Stable Discharge Details Clinical Impression: Pain, dental Primary Care Provider: Unknown,Unknown ED Provider: Mandy Espinosa Home Meds and New Rx's Prescriptions: New Saccharomyces boulardii [Florastor] 250 mg capsule 250 mg PO BID Qty: 14 0RF clindamycin HCl 150 mg capsule 450 mg PO TID Qty: 36 0RF Continued gabapentin 300 mg capsule 600 mg PO TID methadone 10 mg/mL concentrate 130 mg PO QDAY sucralfate [Carafate] 1 gram tablet 1 g PO BID Qty: 60 0RF pantoprazole [Protonix] 40 mg tablet,delayed release (DR/EC) 40 mg PO DAILY Qty: 60 0RF methylphenidate HCl 20 mg tablet 20 mg PO BID bupropion HCl 100 mg tablet 200 mg PO BID ibuprofen 800 mg tablet 800 mg PO TID PRN (Reason: pain) Qty: 20 0RF Discharge Instructions Instructions: Toothache (ED) Additional Instructions: Please take the antibiotic as prescribed Take the Florastor daily Follow-up with a dentist and return should you have fever, chills, chest pain, shortness of breath, or with any new or worsening complaints HPI General Date/Time Provider Initiated Documentation: 08/28/23 19:14 . HPI Narrative: This 37-year-old male presents with dental pain which has been present for the past several days. He states he just finished an antibiotic for an infection on the right side of his mouth. He has not followed up with the dentist. He denies any fever or chills. He is taking his prescribed methadone without incident. Denies any difficulty swallowing. Related Data Home Medications Medication Instructions Recorded Confirmed gabapentin 300 mg capsule 600 mg PO TID 04/29/23 08/28/23 methadone 10 mg/mL oral concentrate 130 mg PO QDAY 04/29/23 08/28/23 pantoprazole 40 mg tablet,delayed 40 mg PO DAILY #60 tabs 04/29/23 08/28/23 release (Protonix) sucralfate 1 gram tablet (Carafate) 1 g PO BID #60 tabs 04/29/23 08/28/23 bupropion HCl 100 mg tablet 200 mg PO BID 07/20/23 08/28/23 ibuprofen 800 mg tablet 800 mg PO TID PRN pain #20 tabs 07/20/23 08/28/23 methylphenidate HCl 20 mg tablet 20 mg PO BID 07/20/23 08/28/23 Saccharomyces boulardii 250 mg 250 mg PO BID #14 caps 08/28/23 capsule (Florastor) clindamycin HCl 150 mg capsule 450 mg (3 x 150 mg) PO TID #36 caps 08/28/23 Previous Rx's Medication Instructions Recorded pantoprazole 40 mg tablet,delayed 40 mg PO DAILY #60 tabs 04/29/23 release (Protonix) sucralfate 1 gram tablet (Carafate) 1 g PO BID #60 tabs 04/29/23 ibuprofen 800 mg tablet 800 mg PO TID PRN pain #20 tabs 07/20/23 Saccharomyces boulardii 250 mg 250 mg PO BID #14 caps 08/28/23 capsule (Florastor) clindamycin HCl 150 mg capsule 450 mg (3 x 150 mg) PO TID #36 caps 08/28/23 Allergies Allergy/AdvReac Type Severity Reaction Status Date / Time Penicillins Allergy Severe Anaphylaxis Verified 08/28/23 19:07 General Stated Complaint: DentalOral SALVADOR: 4 Course Vital Signs Vital signs: Vital Signs Temperature 36.4 C L 08/28/23 18:59 Pulse 88 08/28/23 18:59 Respiratory Rate 16 08/28/23 18:59 Blood Pressure 121/79 08/28/23 18:59 Temperature 36.4 C L 08/28/23 18:59 Temperature Source Temporal Artery Scan 08/28/23 18:59 Pulse 88 08/28/23 18:59 Respiratory Rate 16 08/28/23 18:59 Respiratory Effort Normal, Non-Labored 08/28/23 19:04 Blood Pressure 121/79 08/28/23 18:59 Pain Level 5 08/28/23 18:59 Medical Decision Making 37-year-old male presenting with dental pain Third visit in the past month for dental pain, widespread dental decay, tenderness with palpation without visible swelling or redness to #21 I discussed risk of antibiotics, patient is aware of these risks and would like an antibiotic, he is not requesting analgesia There is no trismus or evidence of Mor's angina Patient declines a dental block Clindamycin was ordered, Florastor secondary to risk of C. difficile colitis with recurrent antibiotics and referral to dentist, encouraged to call the dentist tomorrow, list supplied No evidence of deep space infection No drainable abscess Speaking in complete sentences, alert and oriented, discharged home in stable c ondition with stable vitals Quality:SDOH Health Related Social Needs: No Data to Display PFSH All Active Problems (Updated 08/28/23 @ 19:23 by MICHELINE Saeed) Pain, dental (Acute) Social History Smoking/Tobacco Use Status: Current every day Tobacco Type: cigarettes Smoking risk assessment performed?: Yes Alcohol Intake: former Drug use: Daily Substance use type: marijuana Housing: homeless Do you feel safe at home: Yes Do you feel safe in your relationship?: Yes
== END 2023-08-28 19:34 | disposition home or self-care (01) ==
PROVIDERS: Emergency Provider Physician Assistant
DX: K08.89 Other specified disorders of teeth and supporting structures (principal); F17.210 Nicotine dependence, cigarettes, uncomplicated
CPT/HCPCS: 99283

== ENCOUNTER 2023-11-20 16:16 | Emergency (ER) | payer MEDICAID, SELFPAY ==
[2023-11-20 16:31] VITALS: BP 102/81; PULSE 107; RESP 16; TEMP 36.8; O2SAT 98
== END 2023-11-20 23:09 | disposition left against medical advice (07) ==
PROVIDERS: Emergency Provider Student in an Organized Health Care Education/Training Program
DX: Z53.21 Procedure and treatment not carried out due to patient leaving prior to being seen by health care provider (principal)

== ENCOUNTER 2023-11-20 21:43 | Emergency (ER) | payer MEDICAID, SELFPAY ==
[2023-11-20 21:47] VITALS: BP 110/80; PULSE 96; RESP 16; TEMP 37; O2SAT 98
--- NOTE | 2023-11-20 22:49 | NUR.NOTE ---
Multiple attempt to call pt back to a room. Pt not in waiting room. Pt can be see in the cameras outside.
--- NOTE | 2023-11-20 23:05 | ED.GENADUL_ITS ---
Discharge Plan Disposition Patient Disposition: Left Without Being Seen Discharge Details Primary Care Provider: Unknown,Unknown ED Provider: John Mosquera [facility] General Mode of arrival: EMS . Date/Time Provider Initiated Documentation: 11/20/23 21:57 . Limitations to Documentation: no limitations . Information obtained by: patient and family . HPI Narrative: Patient presents to ED with complaint of bilateral leg pain. Patient has both legs in splints/casts and the right leg is in an ex-fix. He left [facility] today. He has been here a couple of times today and triaged but would then leave. He has been in and out of the waiting room multiple times on this visit. He has complained constantly about [facility]. He has been rude to staff. He was constantly swearing and taking tone with me while attempting to obtain history. He is also very short and rude to his significant other who was trying to help with history. Related Data Home Medications Medication Instructions Recorded Confirmed gabapentin 300 mg capsule 600 mg PO TID 04/29/23 08/28/23 methadone 10 mg/mL oral concentrate 130 mg PO QDAY 04/29/23 08/28/23 pantoprazole 40 mg tablet,delayed 40 mg PO DAILY #60 tabs 04/29/23 08/28/23 release (Protonix) sucralfate 1 gram tablet (Carafate) 1 g PO BID #60 tabs 04/29/23 08/28/23 bupropion HCl 100 mg tablet 200 mg PO BID 07/20/23 08/28/23 ibuprofen 800 mg tablet 800 mg PO TID PRN pain #20 tabs 07/20/23 08/28/23 methylphenidate HCl 20 mg tablet 20 mg PO BID 07/20/23 08/28/23 Saccharomyces boulardii 250 mg 250 mg PO BID #14 caps 08/28/23 capsule (Florastor) clindamycin HCl 150 mg capsule 450 mg (3 x 150 mg) PO TID #36 caps 08/28/23 Previous Rx's Medication Instructions Recorded pantoprazole 40 mg tablet,delayed 40 mg PO DAILY #60 tabs 04/29/23 release (Protonix) sucralfate 1 gram tablet (Carafate) 1 g PO BID #60 tabs 04/29/23 ibuprofen 800 mg tablet 800 mg PO TID PRN pain #20 tabs 07/20/23 Saccharomyces boulardii 250 mg 250 mg PO BID #14 caps 08/28/23 capsule (Florastor) clindamycin HCl 150 mg capsule 450 mg (3 x 150 mg) PO TID #36 caps 08/28/23 Allergies Allergy/AdvReac Type Severity Reaction Status Date / Time Penicillins Allergy Severe Anaphylaxis Verified 08/28/23 19:07 General Stated Complaint: Orthopedic SALVADOR: 4 Review of Systems Narrative: not obtained Exam Narrative Exam Narrative: Const: WDWN male in NAD. VS per triage Neck: Supple. Trachea midline. Lungs: Normal respiratory effort Neuro: A+O x 3. Normal speech, mentation. Cranial nerves II - XII grossly intact. No gross motor or sensory deficit. Ext: BLE in splints/casts with ex-fix on right Course Vital Signs Vital signs: Vital Signs Temperature 98.6 F 11/20/23 21:47 Pulse 96 H 11/20/23 21:47 Respiratory Rate 16 11/20/23 21:47 Blood Pressure 110/80 11/20/23 21:47 Pulse Oximetry 98 11/20/23 21:47 Temperature 98.6 F 11/20/23 21:47 Temperature Source Temporal Artery Scan 11/20/23 21:47 Pulse 96 H 11/20/23 21:47 Respiratory Rate 16 11/20/23 21:47 Blood Pressure 110/80 11/20/23 21:47 Blood Pressure Position Sitting 11/20/23 21:47 Pulse Oximetry 98 11/20/23 21:47 Oxygen Delivery Method Room Air 11/20/23 21:47 Oxygen Flow Rate 0 11/20/23 21:47 Pain Level 10 11/20/23 21:47 Medical Decision Making Patient asked to refrain from the constant swearing, rude behavior and hostile tone while interacting with staff and myself. This only made him more agitated and hostile. 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 Patient continued to swear and became disrespectful to his significant other. He chose to leave without evaluation and could not contain himself from swearing and being rude to all. [facility] Social History Smoking/Tobacco Use Status: Current every day Tobacco Type: cigarettes Smoking risk assessment performed?: Yes Alcohol Intake: former Drug use: Daily Substance use type: marijuana Housing: homeless Do you feel safe at home: Yes Do you feel safe in your relationship?: Yes
== END 2023-11-20 23:25 | disposition left against medical advice (07) ==
PROVIDERS: Emergency Provider Emergency Medicine
DX: Z53.21 Procedure and treatment not carried out due to patient leaving prior to being seen by health care provider (principal)

== ENCOUNTER 2023-11-23 09:20 | Emergency (ER) | payer MEDICAID, SELFPAY ==
[2023-11-23 09:23] VITALS: BP 125/78; PULSE 69; RESP 18; TEMP 37; O2SAT 96
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
== END 2023-11-23 10:09 | disposition home or self-care (01) ==
LOC: ER 09:53
PROVIDERS: Emergency Provider Physician Assistant
DX: G89.18 Other acute postprocedural pain (principal)
CPT/HCPCS: 99283

== ENCOUNTER 2023-11-24 12:21 | Emergency (ER) | payer MEDICAID, SELFPAY ==
[2023-11-24] VITALS (10 sets, daily range): BP systolic 76–131; BP diastolic 44–76; PULSE 64–72; RESP 15–16; TEMP 36.7; O2SAT 92–100
--- NOTE | 2023-11-24 13:30 | DI.CT_ITS ---
Exam(s) CT HEAD WO EXAM: CT HEAD WO CLINICAL HISTORY: pain. TECHNIQUE: Imaging Protocol: Axial computed tomography images with coronal and sagittal reformatted images were created and reviewed COMPARISON: No exams were available for comparison FINDINGS: Ventricles and Extra axial spaces: Normal in size and morphology for the patient's age. Hemorrhage: None. No evidence of residual recurrent intracranial hemorrhage. Cerebral parenchyma: Normal. Midline shift: None. Brainstem/Cerebellum: Normal. Calvarium: There are findings of prior fractures involving the frontal bones bilaterally and the supe rior and medial left orbital jeffries. There are fractures again seen involving the frontal sinuses. T here is a prior craniotomy and frontal craniectomy. There is a small amount of air seen in the resid ual frontal sinuses. This is likely secondary to the patient's recent surgery. No pneumocephalus. Visualized Paranasal sinuses/Mastoids: The visualized maxillary sinuses, sphenoid sinuses and mastoid air cells are clear. Soft Tissues: Mild stranding is seen in the retro bulbar soft tissues of the left orbit consistent wi th the patient's recent trauma. IMPRESSION: 1. No acute intracranial process. No evidence of recurrent or residual intracranial hemorrhage. 2. Posttraumatic and postsurgical changes as described above. 3. Findings were discussed with Dr. Corona at 2:50 p.m. on 11/24/2023. RADIATION DOSE DELIVERED: 898.85mGy.cm Total DLP DATA REPOSITORY: All CT scans at this facility are submitted to the National Radiology Data Registry (NRDR) Dose Index Registry (DIR) with the [employer] ([employer]). RADIATION OPTIMIZATION: All CT scans at this facility use at least one of these dose optimization te chniques: automated exposure control; mA and/or kV adjustment per patient size (includes targeted exa ms where dose is matched to clinical indication); or iterative reconstruction.
--- NOTE | 2023-11-24 13:30 | DI.RAD_ITS ---
Exam(s) XR TIB/FIB RT XR KNEE RT 2V AP,LAT XR FEMUR RT EXAM: XR FEMUR RT, XR knee RT 2 V and XR tib/fib RT CLINICAL HISTORY: pain, ex fix bleeding. TECHNIQUE: 2D digital imaging was performed of the right femur, right knee and right tib/fib. Seven images were obtained. AP and lateral views were obtained. COMPARISON: There are no priors for comparison. FINDINGS: BONES: There is intramedullary seferino transfixing the comminuted fracture at the midshaft of the right f emur. There is mild callus formation about the fracture site consistent with some interval healing. There is mild displacement of a few of the comminuted fracture fragments. There is an external fixa tor device in the lower femur. There is a sideplate and screws transfixing the lateral tibial platea u fracture. The orthopedic hardware appears in good position. There is a comminuted relatively nond isplaced fracture involving the inferior patella. There is a small knee joint effusion. There is a component of the tibial fracture which extends into the metaphysis and proximal diaphysis. This is n ondisplaced. The distal external fixator device is seen in the mid tibia. There is a question of a lucency through the body of the calcaneus on the cross-table lateral view. This may be caused by ove rlying artifact versus a nondisplaced fracture. Please correlate with the patient's trauma history. SOFT TISSUE: Normal. IMPRESSION: 1. Fractures involving the midshaft of the right femur, the inferior patella, the lateral tibial plat eau and proximal tibia. Please see the above discussion for complete details. 2. Artifact versus nondisplaced fracture involving the calcaneus. Please correlate the patient's tra brendan history. DATA REPOSITORY: RADIATION DOSE DELIVERED:
--- NOTE | 2023-11-24 14:02 | ED.GENADUL_ITS ---
Discharge Plan Disposition Patient Disposition: Home Condition: Stable Discharge Details Clinical Impression: Post-op pain, Hypomagnesemia, Anemia, Dermatitis fungal Primary Care Provider: Unknown,Unknown ED Provider: Catarino Corona Home Meds and New Rx's Prescriptions: New clotrimazole 1 % cream 1 applic topical BID 28 Days Qty: 45 1RF Continued gabapentin 300 mg capsule 600 mg PO TID methadone 10 mg/mL concentrate 130 mg PO QDAY sucralfate [Carafate] 1 gram tablet 1 g PO BID Qty: 60 0RF pantoprazole [Protonix] 40 mg tablet,delayed release (DR/EC) 40 mg PO DAILY Qty: 60 0RF methylphenidate HCl 20 mg tablet 20 mg PO BID bupropion HCl 100 mg tablet 200 mg PO BID ibuprofen 800 mg tablet 800 mg PO TID PRN (Reason: pain) Qty: 20 0RF Saccharomyces boulardii [Florastor] 250 mg capsule 250 mg PO BID Qty: 14 0RF clindamycin HCl 150 mg capsule 450 mg PO TID Qty: 36 0RF Discharge Instructions Instructions: Managing pain after surgery, Hypomagnesemia Additional Instructions: Please follow-up with your primary care physician. Call today to arrange timely follow-up. I have asked the care management assisting coordinating with your primary care team regarding rehab placement. Please follow-up with your orthopedic surgeon as scheduled. Return to the ER immediately for any worsening or new concerning symptoms. HPI General Mode of arrival: EMS . Date/Time Provider Initiated Documentation: 11/24/23 12:38 . Limitations to Documentation: altered mental status . Information obtained by: EMS . HPI Narrative: 38-year-old male00 with history of opioid use disorder, anxiety, recently left [facility] [facility] AGAINST MEDICAL ADVICE on 11/20/2023 after approximately 2 to 3-week hospitalization for treatment of injuries related to 30 foot fall. Patient returns today with concern from his significant other that he is not eating or drinking normally, that he is dehydrated, and that his pain is not adequately controlled. History and review of systems is limited secondary to altered mental status presumed secondary to methadone dosing which was administered just prior to arrival. Related Data Home Medications ?Medication ?Instructions ?Recorded ?Confirmed gabapentin 300 mg capsule 600 mg PO TID 04/29/23 11/24/23 methadone 10 mg/mL oral concentrate 130 mg PO QDAY 04/29/23 11/24/23 pantoprazole 40 mg tablet,delayed 40 mg PO DAILY #60 tabs 04/29/23 11/24/23 release (Protonix) sucralfate 1 gram tablet (Carafate) 1 g PO BID #60 tabs 04/29/23 11/24/23 bupropion HCl 100 mg tablet 200 mg PO BID 07/20/23 11/24/23 ibuprofen 800 mg tablet 800 mg PO TID PRN pain #20 tabs 07/20/23 11/24/23 methylphenidate HCl 20 mg tablet 20 mg PO BID 07/20/23 11/24/23 Saccharomyces boulardii 250 mg 250 mg PO BID #14 caps 08/28/23 11/24/23 capsule (Florastor) clindamycin HCl 150 mg capsule 450 mg (3 x 150 mg) PO TID #36 caps 08/28/23 11/24/23 clotrimazole 1 % topical cream 1 applic topical BID 4 weeks #45 11/24/23 grams Previous Rx's ?Medication ?Instructions ?Recorded pantoprazole 40 mg tablet,delayed 40 mg PO DAILY #60 tabs 04/29/23 release (Protonix) sucralfate 1 gram tablet (Carafate) 1 g PO BID #60 tabs 04/29/23 ibuprofen 800 mg tablet 800 mg PO TID PRN pain #20 tabs 07/20/23 Saccharomyces boulardii 250 mg 250 mg PO BID #14 caps 08/28/23 capsule (Florastor) clindamycin HCl 150 mg capsule 450 mg (3 x 150 mg) PO TID #36 caps 08/28/23 clotrimazole 1 % topical cream 1 applic topical BID 4 weeks #45 11/24/23 grams Allergies Allergy/AdvReac Type Severity Reaction Status Date / Time Penicillins Allergy Severe Anaphylaxis Verified 11/24/23 14:26 General Stated Complaint: GenMedical SALVADOR: 3 Review of Systems Constitutional Constitutional: Denies fever(s) and Reports headache(s) ENT Ears, Nose, Mouth, and Throat: Reports headache(s) Musculoskeletal Comments: Bilateral leg pain right greater than left Neurologic Neurologic: Reports headache(s) Exam Const General: not in acute distress Nutritional Appearance: thin Orientation: alert Limitations: altered mental status Other: Patient intermittently dozing off HENMT Head: normocephalic and atraumatic Mouth: moist mucous membranes Eyes Conjunctivae: normal conjunctivae Sclera: normal sclerae EOM: EOM intact bilaterally Resp Auscultation: clear to auscultation bilaterally, no rales, no rhonchi and no wheezes Cardio Rate: regular rate and not tachycardic Rhythm: regular rhythm GI Palpation: soft, not firm, no guarding, no masses, not rigid and nontender Skin Other: External fixator device wounds bleeding proximally, some serosanguineous discharge, no purulent discharge, no surrounding erythema well demarcated plaque bilateral groin Neuro General: patient alert, patient awake and tone normal Extrem Other: Bilateral lower extremity casts, distal cap refill intact. External fixator device right knee. Psych Affect: labile affect Attitude: cooperative Course Vital Signs Vital signs: Vital Signs Temperature 36.7 C 11/24/23 12:26 Pulse 64 11/24/23 12:26 Respiratory Rate 16 11/24/23 12:26 Blood Pressure 104/50 L 11/24/23 12:26 Pulse Oximetry 99 11/24/23 12:26 Temperature 36.7 C 11/24/23 12:26 Temperature Source Tympanic 11/24/23 12:26 Pulse 64 11/24/23 12:26 Respiratory Rate 16 11/24/23 12:26 Blood Pressure 104/50 L 11/24/23 12:26 Blood Pressure Position Sitting 11/24/23 12:26 Pulse Oximetry 99 11/24/23 12:26 Oxygen Delivery Method Room Air 11/24/23 12:26 Oxygen Flow Rate 0 11/24/23 12:26 Pain Level 10 11/24/23 12:26 Medical Decision Making 1400 --38-year-old male with history of opioid use disorder, anxiety, recently left [facility] AGAINST MEDICAL ADVICE on 11/20/2023 after approximately 2 to 3-week hospitalization for treatment of injuries related to 30 foot fall. Patient returns today with concern from his significant other that he is not eating or drinking normally, that he is dehydrated, and that his pain is not adequately controlled. extracorporeal circulation specialist notes concern for potential infection of Ex-Fix wound. Patient was at the substance abuse clinic just prior to arrival and received his prescribed methadone. His pain is currently well-controlled and he is well sedated. He has been complaining of pain in his legs bilaterally right greater than left. He is also complained of headaches. He has been noncompliant with prescribed medications. His notes significant challenges with transportation and has been unable to drive him back to [facility] [facility]. I reviewed outside hospital medical record, discharge summary from [facility] 11/20/2023: Patient was being treated for intracranial hemorrhage, frontal bone fracture, right distal femur fractures, comminuted open right patellar fracture, comminuted proximal right tibial fracture, right proximal fibular head fracture, right calcaneal tuberosity fracture, open left calcaneal fracture, comminuted fracture left lateral talus, comminuted displaced fracture of the posterior medial talus, finger fractures. Patient was recommended to be discharged to a rehab facility but instead left against medical advice. He would was advised to follow-up with orthopedics. Patient's external fixation device wounds do not appear infected. There is no purulent discharge. He has no fever. The plan at this time is to obtain x-rays to assess for new fracture or displacement of external fixation device and prior reduction. Consider acute or worsening intracranial hemorrhage given headaches. Will obtain CT of the head. 1540 --x-ray of the right femur, right knee, right tib-fib were interpreted by radiology: 1. Fractures involving the midshaft of the right femur, the inferior patella, the lateral tibial plateau and proximal tibia. Please see the above discussion for complete details. 2. Artifact versus nondisplaced fracture involving the calcaneus. Please correlate the patient's trauma history. CT of the head was interpreted by radiology: No hemorrhage. No acute process. Postsurgical changes noted. Labs reviewed. Mild hypomag noted. Will replace with oral medication. No leukocytosis. 1619 --All results were discussed with the patient and his . I do think he would benefit from nursing rehabilitation facility placement. I have asked the care management to assist in coordinating with the primary care physician to arrange this. I explained to patient and his that there is no indication for additional opioid treatment at this time and the discharge summary from [facility] specifically notes patient would not be prescribed opioid pain medications at time of discharge and that nonopioid medications were recommended. Care management here to see the patient. Of note, patient exhibiting emotional immaturity and labile affect. He is hyper sexual at times and specifically focussed on when he can have sex with his . I suspect frontal brain injury is contributing to his behavior. Patient does have groin rash consistent with fungal dermatitis. I will initiate treatment with clotrimazole. Patient did have a low BP noted during ED course which I suspect was erroneous based = nursing noting cuff was not applied appropriately. Repeat BP at this time WNL. Lab Data Lab results reviewed: Yes I reviewed the patient's lab results. Labs: Laboratory Tests Range/Units 11/24/23 15:07 WBC (4.4-10.8) 10^3/uL 8.02 RBC (4.36-5.78) 10^6/uL 3.69 L Hgb (13.5-17.5) g/dL 10.3 L Hct (40.0-50.0) % 33.0 L MCV (80-95) fL 89 MCH (27.0-33.0) pg 27.9 MCHC (32.0-36.0) % 31.2 L RDW (11.8-14.1) % 13.3 Plt Count (130-400) 10^3/uL 421 H MPV (8.0-11.0) fL 9.3 Immature Gran % % 0.2 Neutrophils % % 69.4 Lymphocytes % % 23.3 Monocytes % % 6.1 Eosinophils % % 0.5 Basophils % % 0.5 Nucleated RBC % (0.0-0.3) % 0.0 Absolute Neutrophils (1.2-6.7) 10^3/uL 5.56 Absolute Lymphocytes (1.2-3.4) 10^3/uL 1.87 Absolute Monocytes (0.1-0.8) 10^3/uL 0.49 Absolute Eosinophils (0.0-0.7) 10^3/uL 0.04 Absolute Basophils (0.0-0.2) 10^3/uL 0.04 Sodium (136-145) mmol/L 137 Potassium (3.5-5.1) mmol/L 4.1 Chloride (98-107) mmol/L 98 Carbon Dioxide (21.0-32.0) mmol/L 30.6 Anion Gap (3-11) mmol/L 8.4 BUN (7-18) mg/dL 10 Creatinine (0.70-1.30) mg/dL 0.9 Est GFR (CKD-EPI 2020) (mL/min/1.73m2) 113.51 Glucose (74-106) mg/dL 91 Calcium (8.5-10.1) mg/dL 9.8 Magnesium (1.8-2.4) mg/dL 1.6 L Total Bilirubin (0.2-1.0) mg/dL 0.40 AST (15-37) U/L 23 ALT (16-63) U/L 28 Alkaline Phosphatase (46-116) U/L 335 H Total Protein (6.4-8.2) g/dL 8.2 Albumin (3.4-5.0) g/dL 3.4 Quality:SDOH Health Related Social Needs: No Data to Display PFSH All Active Problems (Updated 11/24/23 @ 16:37 by Catarino Corona MD) Dermatitis fungal (Acute) Anemia (Chronic) Hypomagnesemia (Acute) Post-op pain (Acute) Social History Smoking/Tobacco Use Status: Current every day Tobacco Type: cigarettes Smoking risk assessment performed?: Yes Alcohol Intake: former Drug use: Daily Substance use type: marijuana Housing: other Do you feel safe at home: Yes Do you feel safe in your relationship?: Yes
[2023-11-24 15:13] LABS: Abs Immature Grans 0.02 10^3/uL (0.0-0.06); Absolute Basophil Count 0.04 10^3/uL (0.0-0.2); Absolute Eosinophil Count 0.04 10^3/uL (0.0-0.7); Absolute Lymphocyte Count 1.87 10^3/uL (1.2-3.4); Absolute Monocyte Count 0.49 10^3/uL (0.1-0.8); Absolute Neutrophil Count 5.56 10^3/uL (1.2-6.7); Basophils % 0.5 %; Eosinophils % 0.5 %; HGB 10.3 g/dL (13.5-17.5); Immature Grans % 0.2 %; Lymphocytes % 23.3 %; MCH 27.9 pg (27.0-33.0); MCHC 31.2 % (32.0-36.0); MCV 89 fL (80-95); MPV 9.3 fL (8.0-11.0); Monocytes % 6.1 %; Neutrophils % 69.4 %; Platelet Count 421 10^3/uL (130-400); RBC 3.69 10^6/uL (4.36-5.78); RDW 13.3 % (11.8-14.1); RDW-SD 43.8 fL; WBC 8.02 10^3/uL (4.4-10.8)
[2023-11-24 15:34] LABS: Albumin 3.4 g/dL (3.4-5.0); Alkaline Phosphatase 335 U/L (46-116); BUN 10 mg/dL (7-18); CO2 30.6 mmol/L (21.0-32.0); CREATININE 0.9 mg/dL (0.70-1.30); Calcium 9.8 mg/dL (8.5-10.1); Chloride 98 mmol/L (98-107); Estimated GFR 113.51 (mL/min/1.73m2); Glucose 91 mg/dL (74-106); Potassium 4.1 mmol/L (3.5-5.1); Sodium 137 mmol/L (136-145); Total Protein 8.2 g/dL (6.4-8.2)
[2023-11-24 15:35] LABS: ALT 28 U/L (16-63); AST 23 U/L (15-37); Anion Gap 8.4 mmol/L (3-11); Magnesium 1.6 mg/dL (1.8-2.4)
--- NOTE | 2023-11-24 16:26 | PDOC.CMPRO ---
Care Management Progress Note Progress Note Text Progress Note Text: CM ER Consult is requested. Kenji is sitting up in bed accomplanied by his who appears very attentive to his needs. Kenji will benefit from close outpatient follow up and assistance with finding rehab placement. Currently after hours, CM notified his PCP John Brady ([place]) of outpatient needs Via Fax. CM also sent recent ER notes and suggested support with TBI resources in the community. SDOH(Care Management) Screening Will the Patient Participate in the Screening?: Declined to provide
== END 2023-11-24 17:08 | disposition home or self-care (01) ==
PROVIDERS: Emergency Provider Student in an Organized Health Care Education/Training Program; PCP Family Medicine
DX: G89.18 Other acute postprocedural pain (principal); B36.9 Superficial mycosis, unspecified; D64.9 Anemia, unspecified; E83.42 Hypomagnesemia
CPT/HCPCS: 73552; 80053; 99284; 70450; 73560; 73590; 83735; 85025; 99283

== ENCOUNTER 2023-12-14 16:42 | Emergency (ER) | payer MEDICAID, SELFPAY ==
[2023-12-14] VITALS (8 sets, daily range): BP systolic 103–111; BP diastolic 56–64; PULSE 77–107; RESP 12–16; TEMP 37.3; O2SAT 95–99
--- NOTE | 2023-12-14 16:30 | RT.EKG_ITS ---
APPROVED REPORT Exam: Resting ECG Reason for Exam: Chest Pain, SOB Patient Location: E HR:102 bpm ECG Measurements Heart Rate 102 AXIS VA 134 P 67 QRSd 99 QRS 57 QT 338 T 71 QTc 439 Conclusion Sinus tachycardia...rate> 99
--- NOTE | 2023-12-14 17:13 | NUR.NOTE ---
Nursing Note: Pt is unwilling to let this nurse near him. Pt SO is doing all the talking. Pt is slurring his words worse than last time I cared for him. Pt having L side chest pain with pain with breathing. Pt is not taking his Lovenox because he does not like needles. Pt states he coughed then started having chest pain worse last night. Pt is speaking in full sentences. Pt falling to sleep in his chair. Gave pt a urinal.
--- NOTE | 2023-12-14 17:45 | DI.CT_ITS ---
Exam(s) CT LOWER EXTREMITY RT W EXAM: CT LOWER EXTREMITY RT W CLINICAL HISTORY: ORIF, pins draining pus. TECHNIQUE: Imaging Protocol: Axial computed tomography images with coronal and sagittal reformatted images were created and reviewed. CONTRAST MATERIAL: Intravenous: Omnipaque 350 Contrast volume:90 ml Contrast route:IV - COMPARISON: CR XR TIB/FIB RT from 11/24/2023 CR XR FEMUR RT from 11/24/2023 CR XR KNEE RT 2V AP,LAT from 11/24/2023 FINDINGS: Bones: Hardware again noted in femur and proximal tibia. Comminuted fractures of the patella and lupe caneus again noted. No gross evidence of bony destruction. Joints: There is no significant joint space narrowing. No significant periarticular spurring. Soft Tissues: Swelling greatest around the knee. Suprapatellar collection with extension to the skin surface antral laterally. Make indicate with joint space. No additional abscesses identified. IMPRESSION: Fractures of the right femur, proximal tibia and fibula is also patella and calcaneus. Hardware in p lace in the femur and proximal tibia. Peripherally enhancing collection seen in the anterolateral aspect of the soft tissues of the knee wi th possible extension to the joint space. Findings consistent with abscess. RADIATION DOSE DELIVERED: Total DLP DATA REPOSITORY: All CT scans at this facility are submitted to the National Radiology Data Registry (NRDR) Dose Index Registry (DIR) with the [employer] (A[employer]). RADIATION OPTIMIZATION: All CT scans at this facility use at least one of these dose optimization te chniques: automated exposure control; mA and/or kV adjustment per patient size (includes targeted exa ms where dose is matched to clinical indication); or iterative reconstruction.
--- NOTE | 2023-12-14 17:45 | DI.CT_ITS ---
Exam(s) CT CHEST PE CTA EXAM: CT CHEST PE CTA CLINICAL HISTORY: L sided CP, SOB. TECHNIQUE: Imaging Protocol: Axial CT angiography was performed with multi-slice acquisition and mu lti-planar reconstructions as well as axial, coronal and sagittal MIP reconstructions. CONTRAST MATERIAL: Intravenous: Omnipaque 350 Contrast volume:60 ml COMPARISON: CT CT CHEST/ABD/PEL W from 04/29/2023 FINDINGS: Pulmonary Arteries: Filling defects noted in both lower lobe pulmonary arteries consistent with embol i. No saddle embolus. Small emboli also present within lingula and right upper lobe branches. Tracheobronchial tree: No mucous plugging. Mediastinum and Linh: No dominant adenopathy or fluid collection. Pulmonary parenchyma: No consolidation or dominant measurable mass. Posterior atelectasis at the le ft lung base. Pleura: No effusion or pneumothorax. Heart: The heart is not dilated. No evidence of right heart strain. No coronary artery calcificatio ns are seen. Aorta: Thoracic aorta non-dilated. No dissection. Upper abdomen: No acute findings. Bones: Unremarkable for age. Tubes, Catheters, and Lines: None Soft tissues: Unremarkable. IMPRESSION: Bilateral lower lobe pulmonary emboli. Small emboli also noted in lingula and right upper lobe. No right heart strain. RADIATION DOSE DELIVERED: Total DLP DATA REPOSITORY: All CT scans at this facility are submitted to the National Radiology Data Registry (NRDR) Dose Index Registry (DIR) with the [employer] (ACR). RADIATION OPTIMIZATION: All CT scans at this facility use at least one of these dose optimization te chniques: automated exposure control; mA and/or kV adjustment per patient size (includes targeted exa ms where dose is matched to clinical indication); or iterative reconstruction.
--- NOTE | 2023-12-14 17:53 | W.ED.GENAD ---
Discharge Plan Discharge Details Chief Complaint: Chest Pain Primary Care Provider: John Brady ED Provider: Wendy Nicole Home Meds and New Rx's Prescriptions: No Action levetiracetam 500 mg/5 mL (5 mL) solution 500 mg PO BID Patient Comments: TAKE 5ML BY MOUTH TWO TIMES A DAY clonidine HCl 0.2 mg tablet 0.2 mg PO TID Patient Comments: TAKE ONE TABLET BY MOUTH EVERY 8 HOURS tizanidine 4 mg tablet 4 mg PO TID Patient Comments: TAKE ONE TABLET PER NG TUBE THREE TIMES EVERY DAY gabapentin 300 mg capsule 600 mg PO TID methadone 10 mg/mL concentrate 130 mg PO QDAY Patient Comments: missed a few doses but did take today methylphenidate HCl 20 mg tablet 20 mg PO BID bupropion HCl 100 mg tablet 200 mg PO BID Saccharomyces boulardii [Florastor] 250 mg capsule 250 mg PO BID Qty: 14 0RF HPI General Date/Time Provider Initiated Documentation: 12/14/23 17:13. HPI Narrative: Kenji is a 38-year-old female who presents the emergency department today for eval evaluation of left-sided chest pain accompanied by cough, shortness of breath and fever up to 100.7 x 3 days. Denies nausea/vomiting, change in bowel or bladder function, drainage from the pins. 1 month ago she fell off a maximino, sustaining multiple injuries, was inpatient at [facility] for an extended amount of time until he left [place]. According to his , who provided most of the history, Kenji sustained TBI and had fixation of his left leg performed; he denies taking pain medications but refused to take Lovenox injections since leaving the hospital because he does not want to use any needles. He is not taking any antibiotics. He has had drainage from pins, but says that this is normal, says he had it checked out multiple times and told it was not infected. He does frequently spit and reports trouble swallowing anything other than liquids, says that he has had difficulty swallowing since intubation, attributes this to problems with the breathing tube. Physical exam remarkable for significant tenderness with palpation of anterior and posterior chest wall. Easy work of breathing, unable to clearly hear lung sounds due to significant tenderness with use of stethoscope combined with diminished effort. Normal heart sounds, no JVD. External fixator noted, right leg, pus drainage reviewed from multiple pins (greatest in femur screws). No obvious rashes or sores, however patient declines to have his legs examined closely. Patient is alert, agitated with answering questions or when asked to cooperate with physical exam. He does frequently swear, is able to be redirected; he states he is agreeable to cooperating with care. DDx includes but is not limited to: Pneumonia, PE, ACS, arrhythmia, costochondritis/chest wall pain, Infection/abscess leg, osteomyelitis, sepsis I independently interpreted the following tests: EKG reassuring, sinus tachycardia rate 112, no changes consistent with acute ischemia. CBC reassuring, mild thrombocytosis, platelets 515. CMP reassuring. Initial troponin negative. CTA chest showed bilateral PEs, as well as CT left lower extremity remarkable for suprapatellar bursitis with fistula connecting to the anterior lateral aspects of the femur, consistent with probable postoperative infection. While in the emergency department Kenji received IV Toradol and morphine for pain control. I reviewed patient's medical records from [facility]. He had ORIF for fracture of right distal femur, as well. Right calcaneus. No tenderness injuries, left talus ORIF as well. He had left AMA from [facility] on 11/20/2023; diagnosed with small left frontal and right temporal hemorrhagic contusions, trace subarachnoid hemorrhage in the left frontal, depressed frontal bone fracture, extensive fractures including right distal femur fractures, comminuted open right patellar fracture, comminuted proximal right tibial fracture, right proximal fibular head fracture, right calcaneal tuberosity fracture, open left calcaneal fracture, comminuted fracture of left lateral and medial talus. He had been unable to feedings due to swallowing concerns until he left AMA. He had been advised to take Lovenox or baby aspirin for DVT prophylaxis. Discussed case with Dr. Carpenter, hospitalist. Patient to be admitted for pulmonary embolisms and likely postop infection. Call placed to [facility] orthopedics to discuss management of infection. Related Data Home Medications ?Medication ?Instructions ?Recorded ?Confirmed gabapentin 300 mg capsule 600 mg PO TID 04/29/23 12/14/23 methadone 10 mg/mL oral concentrate 130 mg PO QDAY 04/29/23 12/14/23 bupropion HCl 100 mg tablet 200 mg PO BID 07/20/23 12/14/23 methylphenidate HCl 20 mg tablet 20 mg PO BID 07/20/23 12/14/23 Saccharomyces boulardii 250 mg 250 mg PO BID #14 caps 08/28/23 12/14/23 capsule (Florastor) clonidine HCl 0.2 mg tablet 0.2 mg PO TID 12/14/23 12/14/23 levetiracetam 500 mg/5 mL (5 mL) 500 mg PO BID 12/14/23 12/14/23 oral solution tizanidine 4 mg tablet 4 mg PO TID 12/14/23 12/14/23 Previous Rx's ?Medication ?Instructions ?Recorded Saccharomyces boulardii 250 mg 250 mg PO BID #14 caps 08/28/23 capsule (Florastor) Allergies Allergy/AdvReac Type Severity Reaction Status Date / Time Penicillins Allergy Severe Anaphylaxis Verified 12/14/23 16:47 General Stated Complaint: Chest Pain SALVADOR: 3 Review of Systems Narrative: see HPI Exam Const General: acute distress and disheveled Nutritional Appearance: thin Chest Chest: abnormal inspection of the chest (diffuse tenderness to L chest wall (anterior and posterior)) Resp Effort & Inspection: normal respiratory effort and able to speak in complete sentences Auscultation: clear to auscultation bilaterally and diminished lung sounds Cardio Rate: regular rate Rhythm: regular rhythm Extrem Other: external fixator noted to R leg, pus drainage from femur pins. No surrounding erythema or lesions. Sutures intact, no drainage from healing lacerations Course Vital Signs Vital signs: Vital Signs Temperature 37.3 C 12/14/23 16:53 Pulse 107 H 12/14/23 16:53 Respiratory Rate 16 12/14/23 16:53 Blood Pressure 103/64 12/14/23 16:53 Pulse Oximetry 96 12/14/23 16:53 Temperature 37.3 C 12/14/23 16:53 Temperature Source Temporal Artery Scan 12/14/23 16:53 Pulse 107 H 12/14/23 16:53 Respiratory Rate 12 12/14/23 17:18 Respiratory Effort Normal 12/14/23 17:18 Respiratory Depth Shallow 12/14/23 17:18 Respiratory Pattern Normal 12/14/23 17:18 Blood Pressure 103/64 12/14/23 16:53 Blood Pressure Position Sitting 12/14/23 16:53 Pulse Oximetry 96 12/14/23 16:53 Oxygen Delivery Method Room Air 12/14/23 16:53 Oxygen Flow Rate 0 12/14/23 16:53 Pain Level 8 12/14/23 17:18 Lab/Test Results Lab/Test Results: 12/14/23 17:45 Blood Blood Culture - Pending 12/14/23 17:45 Blood Blood Culture - Pending Medical Decision Making Quality:SDOH Health Related Social Needs: No Data to Display PFSH All Active Problems (Updated 11/24/23 @ 16:37 by Catarino Corona MD) Dermatitis fungal (Acute) Anemia (Chronic) Hypomagnesemia (Acute) Post-op pain (Acute) Social History Smoking/Tobacco Use Status: Current every day Tobacco Type: cigarettes Smoking risk assessment performed?: Yes Alcohol Intake: former Drug use: Daily Substance use type: marijuana Details: methadone Housing: other Do you feel safe at home: Yes Do you feel safe in your relationship?: Yes Additional Social history: homeless and moving from place to place
[2023-12-14 18:37] LABS: Abs Immature Grans 0.03 10^3/uL (0.0-0.06); Absolute Basophil Count 0.05 10^3/uL (0.0-0.2); Absolute Eosinophil Count 0.04 10^3/uL (0.0-0.7); Absolute Lymphocyte Count 1.64 10^3/uL (1.2-3.4); Absolute Monocyte Count 0.65 10^3/uL (0.1-0.8); Absolute Neutrophil Count 7.75 10^3/uL (1.2-6.7); Basophils % 0.5 %; Eosinophils % 0.4 %; HGB 10.6 g/dL (13.5-17.5); Immature Grans % 0.3 %; Lymphocytes % 16.1 %; MCH 26.2 pg (27.0-33.0); MCHC 30.3 % (32.0-36.0); MCV 87 fL (80-95); MPV 9.7 fL (8.0-11.0); Monocytes % 6.4 %; Neutrophils % 76.3 %; Platelet Count 515 10^3/uL (130-400); RBC 4.04 10^6/uL (4.36-5.78); RDW 14.1 % (11.8-14.1); RDW-SD 45.4 fL; WBC 10.16 10^3/uL (4.4-10.8)
[2023-12-14] MEDS: Ketorolac 15 MG/ML VIAL IVP (18:47)
[2023-12-14] MEDS: Normal Saline 1,000 ML 1000 ML IV (18:49)
[2023-12-14 19:01] LABS: ALT 17 U/L (16-63); AST 13 U/L (15-37); Albumin 3.1 g/dL (3.4-5.0); Alkaline Phosphatase 120 U/L (46-116); Anion Gap 8.8 mmol/L (3-11); BUN 11 mg/dL (7-18); Bilirubin, Total 0.32 mg/dL (0.2-1.0); CO2 32.2 mmol/L (21.0-32.0); CREATININE 0.8 mg/dL (0.70-1.30); Calcium 9.2 mg/dL (8.5-10.1); Chloride 99 mmol/L (98-107); Estimated GFR 117.63 (mL/min/1.73m2); Glucose 95 mg/dL (74-106); Potassium 4.4 mmol/L (3.5-5.1); Sodium 140 mmol/L (136-145); Total Protein 8.2 g/dL (6.4-8.2); Troponin I < 50 ng/L (< or =60)
[2023-12-14] MEDS: Normal Saline - Diluent 50 ML VIAL IJ ×2 (19:06→19:07)
[2023-12-14] MEDS: Omnipaque 350 MG/ML 50 ML BTL IJ (19:07)
[2023-12-14] MEDS: Omnipaque 350 MG/ML 100 ML BTL IJ (19:09)
[2023-12-14] MEDS: MORPHine 4 MG/ML SYR IVP (19:35)
--- NOTE | 2023-12-14 19:36 | NUR.NOTE ---
Nursing Note: Pt back from CT without it being done. Pt is aggitated states he cannot lay flat it is to painful. Pt is yelling as SO. Morphine given.
--- NOTE | 2023-12-14 22:05 | NUR.NOTE ---
Nursing Note: Hand off report to SUJATHA Carpio
--- NOTE | 2023-12-14 22:09 | DI.VRAD_ITS ---
PROCEDURE INFORMATION: Exam: CTA Chest With Contrast Exam date and time: 12/14/2023 9:18 PM Age: 38 years old Clinical indication: Left-sided; Patient HX: L sided chest pain, SOB TECHNIQUE: Imaging protocol: Computed tomographic angiography of the chest with contrast. Exam focused on the arteries. 3D rendering (Not supervised by radiologist): MIP and/or 3D reconstructed images were created by the technologist. Contrast material: OMNIPAQUE 350; Contrast volume: 60 ml; Contrast route: INTRAVENOUS (IV); COMPARISON: CT CHEST/ABD/PEL W 04/29/2023 7:51 PM FINDINGS: Pulmonary arteries: Moderate-sized branching filling defects compatible with acute pulmonary emboli noted within the bilateral lower lobe pulmonary arteries extending into the adjacent segmental branches. Small pulmonary emboli also noted within lingular and right upper lobe segmental branches. Aorta: Unremarkable. No aortic aneurysm. No aortic dissection. Lungs: Mild dependent atelectasis in the left lung base. Pleural spaces: Unremarkable. No pneumothorax. No pleural effusion. Heart: Unremarkable. No cardiomegaly. No pericardial effusion. Heart RV/LV ratio: RV/LV ratio is 0.7. Lymph nodes: Unremarkable. No enlarged lymph nodes. Bones/joints: Unremarkable. No acute fracture. Soft tissues: Unremarkable. IMPRESSION: Moderate volume bilateral pulmonary emboli as described. No findings of right heart strain. THIS REPORT CONTAINS FINDINGS THAT MAY BE CRITICAL TO PATIENT CARE. The findings were verbally communicated via telephone conference with DENISE LÓPEZ at 10:08 PM EDT on 12/14/2023. The findings were acknowledged and understood. Dictated and Authenticated by: Travis Henriquez MD. Ordering:RENNY Nguyen MD
[2023-12-14] MEDS: ACETAMINOPHEN 1,000 MG/100 ML BTL 400 MG IVPB (22:10)
--- NOTE | 2023-12-14 22:21 | DI.VRAD_ITS ---
PROCEDURE INFORMATION: Exam: CT Right Lower Extremity With Contrast Exam date and time: 12/14/2023 9:24 PM Age: 38 years old Clinical indication: Other: Orif pins draining pus TECHNIQUE: Imaging protocol: CT of the right lower extremity with intravenous contrast was performed. Radiation optimization: All CT scans at this facility use at least one of these dose optimization techniques: automated exposure control; mA and/or kV adjustment per patient size (includes targeted exams where dose is matched to clinical indication); or iterative reconstruction. Contrast material: OMNNIPAQUE 350; Contrast volume: 90 ml; Contrast route: INTRAVENOUS (IV); COMPARISON: CR XR KNEE RT 2V AP,LAT 11/24/2023 2:16 PM FINDINGS: Bones/joints: Comminuted and displaced fracture of the mid femoral diaphysis as well as comminuted fractures of the patella, proximal tibia and calcaneus noted. Orthopedic hardware produces internal and external fixation of fractures with the exception of the calcaneus fracture. Soft tissues: Soft tissue swelling of the right lower extremity noted, particularly about the knee. Thick-walled suprapatellar soft tissue fluid collection which appears to connect to the skin surface at the anterolateral aspect of the knee (series 9, images 120-128). Suprapatellar fluid collection measures approximately 8 mm in greatest thickness. The appearance suggests suprapatellar bursitis with fistulous connection to the skin surface. IMPRESSION: Diffuse soft tissue swelling of the right knee including thick-walled suprapatellar fluid collection favored to represent suprapatellar bursitis with fistulous connection to the anterolateral skin surface. The appearance raises concern for postoperative infection. Multiple fractures as described. Dictated and Authenticated by: Travis Henriquez MD. Ordering:RENNY Nguyen MD
[2023-12-14 22:46] LABS: ESR 46 mm/hr (0-15)
[2023-12-14 22:56] LABS: C-Reactive Protein 13.83 mg/dL (<or=0.5)
[2023-12-15 01:48] VITALS: BP 132/62; PULSE 72; RESP 16; O2SAT 96
[2023-12-15 05:13] VITALS: BP 120/72; PULSE 79; RESP 16; O2SAT 95
--- NOTE | 2023-12-15 05:56 | W.PM.HP.N ---
Assessment and Plan Assessment and plan (1) Pulmonary emboli: Status: Chronic Qualifiers: Pulmonary embolism type: multiple subsegmental (without acute cor pulmonale) Qualified Code(s): I26.94 - Multiple subsegmental pulmonary emboli without acute cor pulmonale (2) Complication, postoperative infection: Status: Acute Qualifiers: Encounter type: initial encounter Postoperative infection type: deep incisional surgical site Qualified Code(s): T81.42XA - Infection following a procedure, deep incisional surgical site, initial encounter (3) TBI (traumatic brain injury): Status: Acute Qualifiers: Encounter type: initial encounter Loss of consciousness presence/duration: with LOC of unspecified duration Qualified Code(s): S06.9X9A - Unspecified intracranial injury with loss of consciousness of unspecified duration, initial encounter (4) Open fracture of femur with delayed healing: Status: Acute Qualifiers: Femur location: shaft Fracture alignment: displaced Fracture morphology: comminuted Laterality: right Open fracture type: open type III Qualified Code(s): S72.351J - Displaced comminuted fracture of shaft of right femur, subsequent encounter for open fracture type IIIA, IIIB, or IIIC with delayed healing ON LICENSE OF [facility] All Active Problems (Updated 12/15/23 @ 06:08 by Clayton Carpenter) Open fracture of femur with delayed healing (Acute) TBI (traumatic brain injury) (Acute) Complication, postoperative infection (Acute) Pulmonary emboli (Chronic) Dermatitis fungal (Acute) Anemia (Chronic) Hypomagnesemia (Acute) Post-op pain (Acute) Social History Smoking/Tobacco Use Status: Current every day Tobacco Type: cigarettes Smoking risk assessment performed?: Yes Alcohol Intake: former Drug use: Daily Substance use type: marijuana Details: methadone Housing: other Do you feel safe at home: Yes Do you feel safe in your relationship?: Yes Additional Social history: homeless and moving from place to place Meds Allergies and Home Medications Allergies Allergy/AdvReac Type Severity Reaction Status Date / Time Penicillins Allergy Severe Anaphylaxis Verified 12/14/23 16:47 Home Medications ?Medication ?Instructions ?Recorded ?Confirmed ?Type gabapentin 300 mg capsule 600 mg PO TID 04/29/23 12/14/23 History methadone 10 mg/mL oral concentrate 130 mg PO QDAY 04/29/23 12/14/23 History methylphenidate HCl 20 mg tablet 20 mg PO BID 07/20/23 12/14/23 History Saccharomyces boulardii 250 mg 250 mg PO BID #14 caps 08/28/23 12/14/23 Rx capsule (Florastor) clonidine HCl 0.2 mg tablet 0.2 mg PO TID 12/14/23 12/14/23 History levetiracetam 500 mg/5 mL (5 mL) 500 mg PO BID 12/14/23 12/14/23 History oral solution tizanidine 4 mg tablet 4 mg PO TID 12/14/23 12/14/23 History bupropion HCl 200 mg tablet,12 hr 200 mg PO BID 12/15/23 12/15/23 History sustained-release Results Labs 12/14/23 18:26 12/14/23 18:26 Labs: Laboratory Results - last 24 hr 12/14/23 18:26 WBC 10.16 RBC 4.04 L Hgb 10.6 L Hct 35.0 L MCV 87 MCH 26.2 L MCHC 30.3 L RDW 14.1 Plt Count 515 H MPV 9.7 Immature Gran % 0.3 Neutrophils % 76.3 Lymphocytes % 16.1 Monocytes % 6.4 Eosinophils % 0.4 Basophils % 0.5 Nucleated RBC % 0.0 Absolute Neutrophils 7.75 H Absolute Lymphocytes 1.64 Absolute Monocytes 0.65 Absolute Eosinophils 0.04 Absolute Basophils 0.05 ESR 46 H Sodium 140 Potassium 4.4 Chloride 99 Carbon Dioxide 32.2 H Anion Gap 8.8 BUN 11 Creatinine 0.8 Est GFR (CKD-EPI 2020) 117.63 Glucose 95 Calcium 9.2 Total Bilirubin 0.32 AST 13 L ALT 17 Alkaline Phosphatase 120 H Troponin I < 50 C-Reactive Protein 13.83 H Total Protein 8.2 Albumin 3.1 L Last Vital Signs Temp 37.3 C 12/14/23 16:53 Pulse 79 12/15/23 05:13 Resp 16 12/15/23 05:13 BP 120/72 12/15/23 05:13 Pulse Ox 95 12/15/23 05:13
[2023-12-15] MEDS: MORPHine 4 MG/ML SYR IVP (07:20)
--- NOTE | 2023-12-15 08:10 | ED.PROG_ITS ---
Date of service: 12/15/23 Time of Service: 08:11 Medical Decision Making Patient resting comfortably no acute distress hemodynamically stable. Received call from [facility] transfer center this a.m. stating that there was availability to have patient transferred ED to ED. Admission here to [facility] at bedtime been canceled. Signout has been given to emergency department physician Dr. Martínez at [facility] which has accepted patient. Quality:SDOH Health Related Social Needs: No Data to Display Discharge Plan Disposition Patient Disposition: Transfer-Acute Inpatient Care Specific Acute Inpt Facility: [facility] Condition: Stable Discharge Details Clinical Impression: Pulmonary emboli, Complication, postoperative infection Primary Care Provider: John Brady ED Provider: Wendy Nicole Home Meds and New Rx's Prescriptions: No Action levetiracetam 500 mg/5 mL (5 mL) solution 500 mg PO BID Patient Comments: TAKE 5ML BY MOUTH TWO TIMES A DAY clonidine HCl 0.2 mg tablet 0.2 mg PO TID Patient Comments: TAKE ONE TABLET BY MOUTH EVERY 8 HOURS tizanidine 4 mg tablet 4 mg PO TID Patient Comments: TAKE ONE TABLET PER NG TUBE THREE TIMES EVERY DAY bupropion HCl 200 mg tablet sustained-release 12 hr 200 mg PO BID Patient Comments: TAKE ONE TABLET BY MOUTH TWICE A DAY gabapentin 300 mg capsule 600 mg PO TID methadone 10 mg/mL concentrate 130 mg PO QDAY Patient Comments: missed a few doses but did take today methylphenidate HCl 20 mg tablet 20 mg PO BID Saccharomyces boulardii [Florastor] 250 mg capsule 250 mg PO BID Qty: 14 0RF
[2023-12-15] MEDS: PIPERACILLIN/TAZO 3.375 GM in Normal Saline 50 ML IVPB (08:18)
[2023-12-15] MEDS: Methylphenidate 10 MG TAB 20 MG PO (08:39)
[2023-12-15] MEDS: Gabapentin 300 MG CAP 600 MG PO (08:39)
[2023-12-15] MEDS: levETIRAcetam Oral Solution 100 MG/ML 500 MG PO (08:40)
[2023-12-15] MEDS: Normal Saline Flush 10 ML SYR IVP (09:02)
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
== END 2023-12-15 09:24 | disposition short-term general hospital (02) ==
PROVIDERS: Emergency Provider Nurse Practitioner Family; PCP Family Medicine
DX: I26.94 Multiple subsegmental thrombotic pulmonary emboli without acute cor pulmonale (principal); T81.42XA Infection following a procedure, deep incisional surgical site, initial encounter; S06.9X9A Unspecified intracranial injury with loss of consciousness of unspecified duration, initial encounter; S72.35 Comminuted fracture of shaft of femur
CPT/HCPCS: 00123; 36415; 71275; 80053; 85652; 87040; 93005; 96361; 96365; 96367; 96375; 96376; 99283; 99285; 73701; 84484; 85025; 86140; 93010; J0131; J1885; J2270; J2543; J3490; Q9967

== ENCOUNTER 2024-03-03 22:41 | Emergency (ER) | payer MEDICAID, SELFPAY ==
[2024-03-03 22:43] VITALS: BP 113/94; PULSE 89; RESP 16; TEMP 36.7; O2SAT 99
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
== END 2024-03-04 00:05 | disposition home or self-care (01) ==
PROVIDERS: Emergency Provider Student in an Organized Health Care Education/Training Program; PCP Family Medicine
DX: S00.83XA Contusion of other part of head, initial encounter (principal); R45.1 Restlessness and agitation; W01.198A Fall on same level from slipping, tripping and stumbling with subsequent striking against other object, initial encounter; Y93.89 Activity, other specified; Y92.012 Bathroom of single-family (private) house as the place of occurrence of the external cause
CPT/HCPCS: 99284; 70450; 70486; 99283

== ENCOUNTER 2024-03-26 01:22 | Outpatient (CLI) | payer OTHER, SELFPAY ==
--- NOTE | 2024-03-26 | DI.RAD_ITS ---
Exam(s) XR TIB/FIB RT EXAM: XR TIB/FIB RT CLINICAL HISTORY: Disability determination, Z02.71; Leg pain, state severity of degeneration. TECHNIQUE: 2D digital imaging was performed. Two views. COMPARISON: CR XR TIB/FIB RT from 11/24/2023 CR XR FEMUR RT from 03/26/2024 FINDINGS: BONES: And intramedullary seferino is again noted in the distal femur. Screw and plate fixation again not ed at the proximal tibia. Continued healing of tibial plateau fracture. No change in alignment. St able alignment of patellar fracture. The bones of the knee and ankle appear demineralized, likely to secondary to disuse. Calcaneal fracture appears grossly unchanged but is not well profiled.. Joints: The femoral tibial joint spaces are maintained. SOFT TISSUE: Normal. IMPRESSION: Unremarkable stable fracture and hardware alignment. No significant degenerative changes DATA REPOSITORY: RADIATION DOSE DELIVERED:
--- NOTE | 2024-03-26 | DI.RAD_ITS ---
Exam(s) XR FEMUR RT EXAM: XR FEMUR RT CLINICAL HISTORY: Disability determination, Z02.71; Leg pain, state severity of degeneration. TECHNIQUE: 2D digital imaging was performed. AP and lateral views. COMPARISON: CR XR FEMUR RT from 11/24/2023 CR XR TIB/FIB RT from 03/26/2024 FINDINGS: BONES: No intramedullary seferino is again noted in the femur. There has been significant interval healin g at the femoral fracture site when compared with the previous exam. There is some heterotopic bone formation. No bony destructive lesion is seen. JOINTS: The hip joint space is maintained. Mild acetabular spurring. SOFT TISSUE: Normal. IMPRESSION: Stable alignment of femoral fracture and intramedullary seferino. Continued fracture healing. DATA REPOSITORY: RADIATION DOSE DELIVERED:
== END 2024-03-26 01:42 ==
PROVIDERS: PCP Family Medicine; Visit Provider Pediatrics Pediatric Rheumatology
DX: Z02.71 Encounter for disability determination (principal); M79.604 Pain in right leg
CPT/HCPCS: 73552; 73590

== ENCOUNTER 2024-05-06 11:50 | Emergency (ER) | payer MEDICAID, SELFPAY ==
[2024-05-06 11:59] VITALS: BP 123/79; PULSE 78; RESP 15; TEMP 36.5; O2SAT 95
[2024-05-06 12:04] VITALS: BP 123/79; PULSE 78; RESP 15; TEMP 36.5; O2SAT 95
--- NOTE | 2024-05-06 12:32 | ED.GENADUL_ITS ---
Discharge Plan Disposition Patient Disposition: Home Condition: Stable Discharge Details Clinical Impression: Headache, TBI (traumatic brain injury), Anticoagulated Primary Care Provider: John Brady ED Provider: Mariel Bowman Home Meds and New Rx's Prescriptions: No Action levetiracetam 500 mg/5 mL (5 mL) solution 500 mg PO BID Patient Comments: TAKE 5ML BY MOUTH TWO TIMES A DAY clonidine HCl 0.2 mg tablet 0.2 mg PO TID Patient Comments: TAKE ONE TABLET BY MOUTH EVERY 8 HOURS tizanidine 4 mg tablet 4 mg PO TID Patient Comments: TAKE ONE TABLET PER NG TUBE THREE TIMES EVERY DAY bupropion HCl 200 mg tablet sustained-release 12 hr 200 mg PO BID Patient Comments: TAKE ONE TABLET BY MOUTH TWICE A DAY gabapentin 300 mg capsule 600 mg PO TID methadone 10 mg/mL concentrate 170 mg PO QDAY Patient Comments: missed a few doses but did take today methylphenidate HCl 20 mg tablet 20 mg PO BID Saccharomyces boulardii [Florastor] 250 mg capsule 250 mg PO BID Qty: 14 0RF Discharge Instructions Instructions: Headache, Adult ED Additional Instructions: You were seen in the emergency department today for evaluation of headache. In our department you had a full physical examination performed, and had a CT scan of your brain and your face that did not show any intracranial bleeding, nor disruption of your craniotomy and facial fracture mesh. You are likely experiencing changes due to shifting of fluids and resolution of swelling over the last several months. It is important that you follow-up with your outpatient providers, and I am glad to hear that you have a referral to primary care. You can continue to use Tylenol at home for management of headaches, should maintain good hydration and nutrition, and can talk about long-term management of headaches associated with TBI with your provider. Thank you for allowing us to be part of your care. HPI General Mode of arrival: ambulatory . Date/Time Provider Initiated Documentation: 05/06/24 11:52 . Limitations to Documentation: no limitations . Information obtained by: patient, family and old records reviewed . HPI Narrative: HPI: This is a 38-year-old male patient with a past medical history significant for TBI in October 2023, with craniotomy and extensive facial fracture repair, complicated by chronic headaches, history of opioid use disorder on maintenance methadone, anticoagulated on Xarelto, who is presenting for evaluation of headaches. The patient and his also note that it seems that the patient's facial hardware is shifting, and they have noticed a ridge over the patient's eyebrows. He has had daily headaches, which responds to Tylenol but do not completely resolve. They are associated with photophobia, nausea, and vomiting. The patient has not sustained any additional trauma or injury, has not had fevers or chills. They have had difficulty following up with the [facility] surgery team. Exam: Gen: Awake and alert, appears uncomfortable HEENT: Non-icteric sclera, pupils equal and reactive at 2 mm bilaterally. No conjunctival injection or facial bruising. I do palpate the hardware ridge just superior to the bilateral eyebrows, with well-healing overlying scars. Neck: Supple Lungs: No apparent respiratory distress, normal respiratory effort. CV: Appears well perfused, strong distal pulse Abdomen: Non-distended MSK: Moves 4 extremities without apparent limitation in ROM Skin: Visualized skin without rashes, cyanosis. Neuro: Normal Gait, no obvious focal deficits. Speaks in full, clear sentences. Psych: Appropriate for situation. MDM: This is a 38-year-old male patient with a history of recent TBI with skull and facial fractures, presenting for evaluation of hardware changes and headache. Differential includes but is not limited to hardware shifting/displacement, decrease in swelling, certainly considered intracranial abnormalities including hemorrhage, edema, and consider post TBI headache syndromes, migraine, tension headaches, cluster headaches. The patient has no fever, nuchal rigidity, or other concerning symptoms for encephalitis/meningitis. No vision changes or ocular findings to increase my concern for optic neuritis, glaucoma, temporal arteritis. I had a shared decision-making conversation with the patient and we will proceed with IV for headache medications to include Tylenol, Reglan, Benadryl. The patient avoids NSAIDs due to his Xarelto use, and given that he is anticoagulated I would hesitate to provide him with NSAIDs prior to imaging. We will obtain a Noncon CT head as well as a CT facial bones to evaluate for intracranial abnormalities as well as changes in the placement of the hardware that might account for his facial structure changes. ED Course: I independently reviewed the patient's CT imaging, and reviewed the radiology report. There is no evidence of intracranial hemorrhage, hardware and mesh are in place with no changes. I suspect that the changes that the patient and his family are noting in the morphology of his face are due to fluid shifts and changes in swelling since surgery rather than hardware displacement. The patient reports an improvement in his headache and is desiring of discharge home. He has a referral to primary care I encouraged him to follow-up with this provider to discuss long-term headache management, and at this time, the patient has had a full medical evaluation and is safe for discharge to home. They are hemodynamically stable, ambulatory, and tolerating PO. They are understanding of the follow-up plan and return precautions. They left our facility without incident. Mariel Bowman MD Related Data Home Medications ?Medication ?Instructions ?Recorded ?Confirmed gabapentin 300 mg capsule 600 mg PO TID 04/29/23 05/06/24 methadone 10 mg/mL oral concentrate 170 mg PO QDAY 04/29/23 05/06/24 methylphenidate HCl 20 mg tablet 20 mg PO BID 07/20/23 05/06/24 Saccharomyces boulardii 250 mg 250 mg PO BID #14 caps 08/28/23 05/06/24 capsule (Florastor) clonidine HCl 0.2 mg tablet 0.2 mg PO TID 12/14/23 05/06/24 levetiracetam 500 mg/5 mL (5 mL) 500 mg PO BID 12/14/23 05/06/24 oral solution tizanidine 4 mg tablet 4 mg PO TID 12/14/23 05/06/24 bupropion HCl 200 mg tablet,12 hr 200 mg PO BID 12/15/23 05/06/24 sustained-release Previous Rx's ?Medication ?Instructions ?Recorded Saccharomyces boulardii 250 mg 250 mg PO BID #14 caps 08/28/23 capsule (Florastor) Allergies Allergy/AdvReac Type Severity Reaction Status Date / Time Penicillins Allergy Severe Anaphylaxis Verified 05/06/24 12:05 General Stated Complaint: Headache SALVADOR: 3 Course Vital Signs Vital signs: Vital Signs Temperature 36.5 C 05/06/24 11:59 Pulse 78 05/06/24 11:59 Respiratory Rate 15 05/06/24 11:59 Blood Pressure 123/79 05/06/24 11:59 Pulse Oximetry 95 05/06/24 11:59 Temperature 36.5 C 05/06/24 12:04 Pulse 78 05/06/24 12:04 Respiratory Rate 15 05/06/24 12:04 Blood Pressure 123/79 05/06/24 12:04 Blood Pressure Position Sitting 05/06/24 12:04 Pulse Oximetry 95 05/06/24 12:04 Oxygen Delivery Method Room Air 05/06/24 12:04 Oxygen Flow Rate 0 05/06/24 12:04 Medical Decision Making Quality:SDOH Health Related Social Needs: No Data to Display PFSH All Active Problems (Updated 05/06/24 @ 14:33 by Mariel Bowman MD) Anticoagulated (Acute) Headache (Acute) Moderate opioid dependence on maintenance therapy (Acute) 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
[2024-05-06] MEDS: Acetaminophen 500 MG TAB 1000 MG PO (13:15)
[2024-05-06] MEDS: diphenhydrAMINE 50 MG/ML VIAL 25 MG IVP (13:16)
[2024-05-06] MEDS: Metoclopramide 10 MG/2 ML VIAL IVP (13:17)
--- NOTE | 2024-05-06 13:24 | DI.CT_ITS ---
Exam(s) CT HEAD FACIAL WO EXAM: CT HEAD FACIAL WO CLINICAL HISTORY: Hx TBI, favial fx, CORRALES and hardware shifting. TECHNIQUE: Imaging Protocol: Axial computed tomography images with coronal and sagittal reformatted images were created and reviewed COMPARISON: CT CT HEAD FACIAL WO from 03/03/2024 FINDINGS: CT Head: Ventricles and Extra axial spaces: Normal in size and morphology for the patient's age. Hemorrhage: None. Cerebral parenchyma: Stable small defect area of encephalomalacia in the anterior left frontal lobe. Midline shift: None. Brainstem/Cerebellum: Normal. Calvarium: Continued healing craniotomy defects in the bilateral frontal regions. Mesh is again note d anteriorly along the frontal region. There is some fluid in this area which appears unchanged. Visualized Paranasal sinuses/Mastoids: Clear minimal mucosal thickening at the floors of the maxillar y sinuses. Soft Tissues: Unremarkable. CT Face: Facial Bones: No acute fracture is noted in facial bones. Postsurgical changes again noted in the bilateral frontal regions. Sinuses and Mastoids: Postsurgical changes anteriorly at the frontal sinuses with some fluid. Stabl e appearance. Minimal mucosal thickening at the floors of the maxillary sinuses. Globes, extraocular muscles, optic nerves and retrobulbar fat: Normal. Upper aerodigestive tract: Normal. Mandible and bilateral temporomandibular joints: Normal. Soft tissues: Normal. IMPRESSION: 1. No acute intracranial process. 2. No acute facial fracture. Stable appearance of old fractures and postsurgical changes in the bila teral frontal regions.. RADIATION DOSE DELIVERED: 1,773.5mGy.cm Total DLP DATA REPOSITORY: All CT scans at this facility are submitted to the National Radiology Data Registry (NRDR) Dose Index Registry (DIR) with the [employer] ([employer]). RADIATION OPTIMIZATION: All CT scans at this facility use at least one of these dose optimization te chniques: automated exposure control; mA and/or kV adjustment per patient size (includes targeted exa ms where dose is matched to clinical indication); or iterative reconstruction.
[2024-05-06 14:47] VITALS: PULSE 70; RESP 16; TEMP 36.5; O2SAT 98
== END 2024-05-06 15:19 | disposition home or self-care (01) ==
PROVIDERS: Emergency Provider Emergency Medicine; PCP Family Medicine
DX: R51.9 Headache, unspecified (principal); R11.2 Nausea with vomiting, unspecified; F17.210 Nicotine dependence, cigarettes, uncomplicated; Z79.01 Long term (current) use of anticoagulants; Z87.820 Personal history of traumatic brain injury; Z98.890 Other specified postprocedural states
CPT/HCPCS: 99284; 70450; 70486; J1200; J2765

== ENCOUNTER 2024-06-06 11:32 | Emergency (ER) | payer MEDICAID, SELFPAY ==
[2024-06-06 11:43] VITALS: BP 116/77; PULSE 80; RESP 14; TEMP 36.6; O2SAT 95
--- NOTE | 2024-06-06 12:00 | DI.CT_ITS ---
Exam(s) CT HEAD WO EXAM: CT HEAD WO CLINICAL HISTORY: quint[place], ams. TECHNIQUE: Imaging Protocol: Axial computed tomography images with coronal and sagittal reformatted images were created and reviewed COMPARISON: CT CT HEAD FACIAL WO from 05/06/2024 FINDINGS: There are no skull fractures. Bifrontal craniotomy defects again noted. There is associated artifact . There is no evidence of intracranial hemorrhage, mass effect, or shift of midline structures. There are no extra-axial fluid collections. The ventricles are not enlarged or shifted and are unchanged s ize. There is no blood within the ventricular system nor within the basal cisterns. IMPRESSION: Stable appearance of frontal craniotomies fractures. No new intracranial findings when compared to p rior study of 05/06/2024.. Report called to ER physician 06/06/2024 1:03 p.m. RADIATION DOSE DELIVERED: 1,067.79mGy.cm Total DLP DATA REPOSITORY: All CT scans at this facility are submitted to the National Radiology Data Registry (NRDR) Dose Index Registry (DIR) with the [employer] (ACR). RADIATION OPTIMIZATION: All CT scans at this facility use at least one of these dose optimization te chniques: automated exposure control; mA and/or kV adjustment per patient size (includes targeted exa ms where dose is matched to clinical indication); or iterative reconstruction.
[2024-06-06] MEDS: Acetaminophen 500 MG TAB 1000 MG PO (12:22)
[2024-06-06] MEDS: Magnesium Oxide 400 MG TAB PO (12:22)
[2024-06-06] MEDS: Ondansetron O.D.T. 4 MG TABEF (12:23)
[2024-06-06] MEDS: Prochlorperazine 10 MG TAB PO (12:23)
[2024-06-06 12:36] VITALS: BP 116/77; PULSE 80; RESP 14; TEMP 36.6; O2SAT 95
[2024-06-06 13:37] VITALS: BP 115/72; PULSE 61; RESP 16; O2SAT 97
[2024-06-06 13:39] LABS: *AMPHETAMINES SCREEN URINE Negative (Negative); *BARBITURATES SCREEN URINE Negative (Negative); *BENZODIAZEPINES SCREEN URINE Negative (Negative); Cannabinoids THC Positive (Negative); Cocaine Screen,Urine Negative (Negative); METHADONE URINE SCREEN Positive (Negative); OPIATES URINE SCREEN Negative (Negative)
[2024-06-06 13:41] LABS: Tricyclic Antidepressants Negative (Negative)
--- NOTE | 2024-06-06 14:17 | ED.GENADUL_ITS ---
Discharge Plan Disposition Patient Disposition: Home Discharge Details Clinical Impression: Chronic headache Primary Care Provider: John Brady ED Provider: Gina Hopper Home Meds and New Rx's Prescriptions: New magnesium 200 mg tablet 200 mg PO DAILY Qty: 30 0RF No Action levetiracetam 500 mg/5 mL (5 mL) solution 500 mg PO BID Patient Comments: TAKE 5ML BY MOUTH TWO TIMES A DAY gabapentin 300 mg capsule 600 mg PO TID methadone 10 mg/mL concentrate 170 mg PO QDAY Patient Comments: missed a few doses but did take today methylphenidate HCl 20 mg tablet 20 mg PO BID Saccharomyces boulardii [Florastor] 250 mg capsule 250 mg PO BID Qty: 14 0RF levetiracetam 500 mg tablet 500 mg PO BID Patient Comments: TAKE ONE TABLET BY MOUTH TWICE A DAY gabapentin 800 mg tablet 800 mg PO TID Patient Comments: TAKE ONE TABLET BY MOUTH THREE TIMES A DAY Discharge Instructions Additional Instructions: Your CT scan today does not reveal an acute abnormality Continue Tylenol He can also start taking magnesium daily to help with chronic headaches. This prescription has been sent to the pharmacy Please follow-up with your primary care physician for any ongoing chronic issues HPI General Date/Time Provider Initiated Documentation: 06/06/24 12:00 . Limitations to Documentation: no limitations . Information obtained by: patient . HPI Narrative: 38-year-old gentleman with past medical history of polysubstance abuse, recent significant traumatic injury with resulting chronic headache, TBI, chronic pain. Presents for evaluation today of headache. Headache is similar to prior headaches but seems to be worse today is associated with some nausea and vomiting. He has not taken his methadone today. He denies any new trauma. He denies any other alcohol or drug use. Related Data Home Medications ?Medication ?Instructions ?Recorded ?Confirmed gabapentin 300 mg capsule 600 mg PO TID 04/29/23 06/06/24 methadone 10 mg/mL oral concentrate 170 mg PO QDAY 04/29/23 06/06/24 methylphenidate HCl 20 mg tablet 20 mg PO BID 07/20/23 06/06/24 Saccharomyces boulardii 250 mg 250 mg PO BID #14 caps 08/28/23 06/06/24 capsule (Florastor) levetiracetam 500 mg/5 mL (5 mL) 500 mg PO BID 12/14/23 06/06/24 oral solution gabapentin 800 mg tablet 800 mg PO TID 06/06/24 06/06/24 levetiracetam 500 mg tablet 500 mg PO BID 06/06/24 06/06/24 magnesium 200 mg tablet 200 mg PO DAILY #30 tabs 06/06/24 Previous Rx's ?Medication ?Instructions ?Recorded Saccharomyces boulardii 250 mg 250 mg PO BID #14 caps 08/28/23 capsule (Florastor) magnesium 200 mg tablet 200 mg PO DAILY #30 tabs 06/06/24 Allergies Allergy/AdvReac Type Severity Reaction Status Date / Time Penicillins Allergy Severe Anaphylaxis Verified 06/06/24 11:43 General Stated Complaint: Headache SALVADOR: 3 Exam Narrative Exam Narrative: Review of Systems: All systems reviewed & are unremarkable except as noted in HPI and below Well-developed, no acute distress NCAT PERRL, normal conjunctiva midrange and reactive RRR Unlabored respiratory effort In a wheelchair, reports paralysis of right lower extremity Flat affect, uncooperative with examination, seems very subdued or sleepy Course Vital Signs Vital signs: Vital Signs Temperature 36.6 C 06/06/24 11:43 Pulse 80 06/06/24 11:43 Respiratory Rate 14 06/06/24 11:43 Blood Pressure 116/77 06/06/24 11:43 Pulse Oximetry 95 06/06/24 11:43 Temperature 36.6 C 06/06/24 12:36 Temperature Source Oral 06/06/24 12:36 Pulse 61 06/06/24 13:37 Respiratory Rate 16 06/06/24 13:37 Blood Pressure 115/72 06/06/24 13:37 Blood Pressure Position Sitting 06/06/24 12:36 Pulse Oximetry 97 06/06/24 13:37 Oxygen Delivery Method Room Air 06/06/24 12:36 Oxygen Flow Rate 0 06/06/24 12:36 Pain Level 7 06/06/24 12:36 Lab/Test Results Lab/Test Results: Laboratory Tests Range/Units 06/06/24 13:09 Urine Opiates Screen (Negative) Negative Urine Methadone Screen (Negative) Positive A Ur Barbiturates Screen (Negative) Negative Ur Tricyclics Screen (Negative) Negative Ur Amphetamines Screen (Negative) Negative U Benzodiazepines Scrn (Negative) Negative Urine Cocaine Screen (Negative) Negative Ur THC Screen (Negative) Positive A Medical Decision Making Emergent evaluation of acute on chronic headache. The patient has not had resolution with Tylenol or Zofran. He does get headaches every day. Patient is high risk given his recent traumatic injuries and head CT was obtained. This does not reveal any acute abnormality. He does not have any infectious symptoms concerning for an infectious etiology of his headache. His overall mental status is bizarre. He initially appeared intoxicated though he denied drug use. But then became fairly angry and belligerent. Then was found to be spooning with his girlfriend in the bed. His head CT was discussed with the radiologist and there is not an acute abnormality. His tox screen was positive for methadone and THC. It is possible that THC was the cause of his mental status change. He was given medication to help with his headache symptoms. He became fairly irritable when it was time for discharge because I would not write a doctor's note excusing him for a court appointment that was scheduled for later today. He had over 2 hours from the time of discharge until the appointment to get there I do not feel it would be appropriate for me to excuse him from a legal matter. Recommend follow-up with PCP for any ongoing chronic issues Quality:SDOH Health Related Social Needs: Health related social needs housing instability, house d, with risk of homelessness (Z59.811), food insecurity (Z59.41), material hardship(utilities) (Z59.12), transportation insecurity (Z59.82), problems related to housing/economic circumstances (Z59.89) PFSH All Active Problems (Updated 06/06/24 @ 13:18 by Gina Hopper MD) Chronic headache (Acute) Moderate opioid dependence on maintenance therapy (Acute) 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
--- NOTE | 2024-06-06 14:18 | NUR.NOTE ---
Nursing Note:Patient had asked for a doctor's note for his court appt at 1500 today. Patient was being discharged. There was no reason for him to miss his appt. I explained to the patient that the provider's do work notes, not doctor's note. The provider felt that patient would be able to make his appt. She declined giving him a work note. Patient became angry, yelling at me. He demanded a doctor's note. I again explained that he was not getting a work note at this visit
--- NOTE | 2024-06-06 14:26 | NUR.NOTE ---
Access chart to send chart information to [facility] for referral. Nursing Note:
== END 2024-06-06 13:47 | disposition home or self-care (01) ==
PROVIDERS: Emergency Provider Emergency Medicine; PCP Family Medicine
DX: R51.9 Headache, unspecified (principal); Z87.820 Personal history of traumatic brain injury; F17.200 Nicotine dependence, unspecified, uncomplicated
CPT/HCPCS: 80307; 99284; 70450

== ENCOUNTER 2024-08-07 19:09 | Emergency (ER) | payer MEDICAID, SELFPAY ==
[2024-08-07] VITALS (16 sets, daily range): BP systolic 102–141; BP diastolic 55–93; PULSE 61–87; RESP 10–24; TEMP 36.4; O2SAT 94–98
--- NOTE | 2024-08-07 19:00 | RT.EKG_ITS ---
APPROVED REPORT Exam: Resting ECG Reason for Exam: Chest Pain Patient Location: E HR:62 bpm ECG Measurements Heart Rate 62 AXIS TN 160 P 34 QRSd 104 QRS 47 QT 436 T 26 QTc 444 Conclusion Sinus rhythm, rate 62 No interval abnormalities No STEMI Compared to priors, rate has decreased
--- NOTE | 2024-08-07 19:15 | DI.RAD_ITS ---
Exam(s) XR PORTABLE CHEST AP EXAM: XR PORTABLE CHEST AP CLINICAL HISTORY: Chest pain. TECHNIQUE: 2D digital imaging was performed. COMPARISON: No exams were available for comparison FINDINGS: Single AP portable view. Heart size is upper normal. The mediastinum is not widened. Lungs are clear. No infiltrates nor obvious pleural effusions. IMPRESSION: No acute pulmonary findings on this single AP portable view of the chest. DATA REPOSITORY: RADIATION DOSE DELIVERED:
[2024-08-07 19:28] LABS: Abs Immature Grans 0.01 10^3/uL (0.0-0.06); Absolute Basophil Count 0.03 10^3/uL (0.0-0.2); Absolute Eosinophil Count 0.09 10^3/uL (0.0-0.7); Absolute Lymphocyte Count 1.62 10^3/uL (1.2-3.4); Absolute Monocyte Count 0.36 10^3/uL (0.1-0.8); Absolute Neutrophil Count 2.75 10^3/uL (1.2-6.7); Basophils % 0.6 %; Eosinophils % 1.9 %; HCT 43.3 % (40.0-50.0); HGB 14.2 g/dL (13.5-17.5); Immature Grans % 0.2 %; Lymphocytes % 33.3 %; MCH 26.9 pg (27.0-33.0); MCHC 32.8 % (32.0-36.0); MCV 82 fL (80-95); Monocytes % 7.4 %; Neutrophils % 56.6 %; Platelet Count 224 10^3/uL (130-400); RBC 5.27 10^6/uL (4.36-5.78); RDW-SD 41.1 fL; WBC 4.86 10^3/uL (4.4-10.8)
--- NOTE | 2024-08-07 19:28 | ED.GENADUL_ITS ---
Discharge Plan Disposition Patient Disposition: Home Condition: Stable Discharge Details Clinical Impression: Acute costochondritis, Chest pain Primary Care Provider: John Brady ED Provider: Cynthia Hsu Home Meds and New Rx's Prescriptions: Continued levetiracetam 500 mg/5 mL (5 mL) solution 500 mg PO BID Patient Comments: TAKE 5ML BY MOUTH TWO TIMES A DAY gabapentin 300 mg capsule 600 mg PO TID methadone 10 mg/mL concentrate 170 mg PO QDAY Patient Comments: missed a few doses but did take today methylphenidate HCl 20 mg tablet 20 mg PO BID Saccharomyces boulardii [Florastor] 250 mg capsule 250 mg PO BID Qty: 14 0RF levetiracetam 500 mg tablet 500 mg PO BID Patient Comments: TAKE ONE TABLET BY MOUTH TWICE A DAY gabapentin 800 mg tablet 800 mg PO TID Patient Comments: TAKE ONE TABLET BY MOUTH THREE TIMES A DAY magnesium 200 mg tablet 200 mg PO DAILY Qty: 30 0RF Xarelto 20 mg tablet Patient Comments: TAKE ONE TABLET BY MOUTH EVERY EVENING Discharge Instructions Instructions: Costochondritis, Chest Pain, Adult ED Additional Instructions: No evidence of cardiac involvement today as cause for your chest pain. Your labs are largely within normal limits. Chest x-ray shows no pneumonia and no active disease. I do suspect that this is chest wall pain as it it hurts when you move and take a deep breath. Please take Tylenol or Ibuprofen with food every 4-6 hours as needed for pain and swelling. Alternate ice and heat. Follow up with primary care provider in 3-5 days. Return to ED sooner if any worsening or concerns. Thank you for allowing us to care for you today. Referrals: John Brady [Primary Care Provider] - 3 days HPI General Mode of arrival: wheelchair . Date/Time Provider Initiated Documentation: 08/07/24 19:14 . Limitations to Documentation: no limitations . Information obtained by: patient, family, RN notes reviewed and old records reviewed . HPI Narrative: 38-year-old male with a past medical history of TBI, PEs, anxiety presents to the ER with a chief complaint of vomiting which began this morning. Approximately 2 hours ago chest pain began with radiation up to the right shoulder. Reports increased shortness of breath and pain with movement. Does have a mild mount of rhonchi noted on the right lower lobe. No wheezing. He is on Xarelto for PE also takes Keppra methadone and gabapentin. Related Data Home Medications ?Medication ?Instructions ?Recorded ?Confirmed gabapentin 300 mg capsule 600 mg PO TID 04/29/23 08/07/24 methadone 10 mg/mL oral concentrate 170 mg PO QDAY 04/29/23 08/07/24 methylphenidate HCl 20 mg tablet 20 mg PO BID 07/20/23 08/07/24 Saccharomyces boulardii 250 mg 250 mg PO BID #14 caps 08/28/23 08/07/24 capsule (Florastor) levetiracetam 500 mg/5 mL (5 mL) 500 mg PO BID 12/14/23 08/07/24 oral solution gabapentin 800 mg tablet 800 mg PO TID 06/06/24 08/07/24 levetiracetam 500 mg tablet 500 mg PO BID 06/06/24 08/07/24 magnesium 200 mg tablet 200 mg PO DAILY #30 tabs 06/06/24 08/07/24 rivaroxaban 20 mg tablet (Xarelto) mg 08/07/24 Previous Rx's ?Medication ?Instructions ?Recorded Saccharomyces boulardii 250 mg 250 mg PO BID #14 caps 08/28/23 capsule (Florastor) magnesium 200 mg tablet 200 mg PO DAILY #30 tabs 06/06/24 Allergies Allergy/AdvReac Type Severity Reaction Status Date / Time Penicillins Allergy Severe Anaphylaxis Verified 08/07/24 19:17 General Stated Complaint: Chest Pain SALVADOR: 3 Review of Systems All systems reviewed & are unremarkable except as noted in HPI and below Cardiovascular Cardiovascular: Reports chest pain and Reports radiating jaw, neck or arm pain Respiratory Respiratory: Reports pain on inspiration Exam Narrative Exam Narrative: Constitutional: Alert and oriented x3. Appears stated age. Normal body habitus. Head: Does have a history of cranial surgery, does have shaven forehead from previous traumatic injury. Eyes: Pupils PERRL, Red reflex noted, EOM's intact. Eyelids symmetrical without lesions, discharge, or swelling. ENT: Bilateral TM's WNL, External ear normal to inspection, no mastoid TTP, swelling, or erythema, Nasal turbinates WNL, no nasal discharge. Normal dentition, Posterior pharynx WNL, no exudate. Chest: RRR, Normal S1, S2, distal pulses intact. Resp: Scattered mild rhonchi noted to right lower lobe. Pain with deep breathing and movement. Abdomen: Soft, non-distended, Normoactive bowel sounds all 4 quads. Musculoskeletal: Normal gait, Moves all 4 extremities without difficulty. Skin: No suspicious rashes or lesions. Capillary refill less than 2 sec. Neurologic: Cranial nerves II-XII intact. Alert and oriented x 3. Motor: No deficits noted. Sensory: Intact bilaterally all 4 extremities. Hematologic/Lymphatic: No ecchymosis, no lymphadenopathy. Course Vital Signs Vital signs: Vital Signs Temperature 36.4 C 08/07/24 19:14 Pulse 72 08/07/24 19:14 Respiratory Rate 24 08/07/24 19:14 Blood Pressure 141/93 H 08/07/24 19:14 Pulse Oximetry 98 08/07/24 19:14 Temperature 36.4 C 08/07/24 19:14 Pulse 72 08/07/24 19:14 Respiratory Rate 18 08/07/24 19:23 Respiratory Effort Normal 08/07/24 19:23 Respiratory Depth Normal 08/07/24 19:23 Respiratory Pattern Normal 08/07/24 19:23 Blood Pressure 141/93 H 08/07/24 19:14 Blood Pressure Position Sitting 08/07/24 19:14 Pulse Oximetry 98 08/07/24 19:14 Oxygen Delivery Method Room Air 08/07/24 19:14 Oxygen Flow Rate 0 08/07/24 19:14 Medical Decision Making 38-year-old male with a past medical history of TBI, PEs, anxiety presents to the ER with a chief complaint of vomiting which began this morning. Approximately 2 hours ago chest pain began with radiation up to the right shoulder. Reports increased shortness of breath and pain with movement. Does have a mild mount of rhonchi noted on the right lower lobe. No wheezing. He is on Xarelto for PE also takes Keppra methadone and gabapentin. Cardiac workup ordered, EKG obtained by ED staff upon arrival, CBC CMP serial troponins, lipase D-dimer. Chest x-ray. Differential diagnose includes but limited to CAD, PE, cholecystitis, pneumonia, viral illness. However patient does not have any report of coughing. He is a daily smoker. Pleurisy, costochondritis. Patient did take 8 mg Zofran prior to arrival. Patient given GI cocktail, upon reevaluation he reports that his pain is somewhat better however he still has it on and off. He is set to negative serial troponins, no elevated white blood cell count, lipase within normal limits. D-dimer also within normal limits. Chest x-ray shows no acute abnormality. Toradol 15 mg ordered patient does have increased pain with movement and deep breathing. Third troponin negative. Will discharge home with follow-up instructions and strict return instructions. This text was generated using [employer] dictation system, please disregard any oddities of phrase or misspellings. Medical Records Medical records reviewed: Yes I reviewed the patient's medical records. Imaging Data Radiologic Study: Imaging: X-Ray Radiologist's impression: TECHNIQUE: Imaging protocol: Radiologic exam of the chest. Views: 1 view. COMPARISON: CT CHEST PE CTA 12/14/2023 9:18 PM FINDINGS: Lungs: No pulmonary con solidation is seen. Pleural spaces: No pleural effusion or pneumothorax is demonstrated. Heart/Mediastinum: The heart appears normal in size. Bones/joints: The visualized bony structures appear grossly intact, as seen. IMPRESSION: No active disease is seen in the chest. Thank you for allowing us to participate in the care of your patient. Dictated and Authenticated by: Luisito Moreno MD Lab Data Lab results reviewed: Yes I reviewed the patient's lab results. Labs: Laboratory Tests Range/Units 08/07/24 08/07/24 19:21 20:20 WBC (4.4-10.8) 10^3/uL 4.86 RBC (4.36-5.78) 10^6/uL 5.27 Hgb (13.5-17.5) g/dL 14.2 Hct (40.0-50.0) % 43.3 MCV (80-95) fL 82 MCH (27.0-33.0) pg 26.9 L MCHC (32.0-36.0) % 32.8 RDW (11.8-14.1) % 14.0 Plt Count (130-400) 10^3/uL 224 MPV (8.0-11.0) fL 10.0 Immature Gran % % 0.2 Neutrophils % % 56.6 Lymphocytes % % 33.3 Monocytes % % 7.4 Eosinophils % % 1.9 Basophils % % 0.6 Nucleated RBC % (0.0-0.3) % 0.0 Absolute Neutrophils (1.2-6.7) 10^3/uL 2.75 Absolute Lymphocytes (1.2-3.4) 10^3/uL 1.62 Absolute Monocytes (0.1-0.8) 10^3/uL 0.36 Absolute Eosinophils (0.0-0.7) 10^3/uL 0.09 Absolute Basophils (0.0-0.2) 10^3/uL 0.03 D-Dimer (<500) ng/mlFEU 338 Sodium (136-145) mmol/L 140 Potassium (3.5-5.1) mmol/L 4.3 Chloride (98-107) mmol/L 100 Carbon Dioxide (21.0-32.0) mmol/L 30.5 Anion Gap (3-11) mmol/L 9.5 BUN (7-18) mg/dL 11 Creatinine (0.70-1.30) mg/dL 1.0 Est GFR (CKD-EPI 2020) (mL/min/1.73m2) 100.03 Glucose (74-106) mg/dL 89 Calcium (8.5-10.1) mg/dL 9.7 Magnesium mg/dL 2.1 Total Bilirubin (0.2-1.0) mg/dL 0.4 AST (15-37) U/L 27 ALT (16-63) U/L 46 Alkaline Phosphatase (46-116) U/L 111 Troponin I (<or=76) ng/L 7 6 Total Protein (6.4-8.2) g/dL 8.3 H Albumin (3.4-5.0) g/dL 4.3 Lipase (<78) U/L 49 Quality:SDOH Health Related Social Needs: Health related social needs housing instability, house d, with risk of homelessness (Z59.811), food insecurity (Z59.41), material hardship(utilities) (Z59.12), transportation insecurity (Z59.82), problems related to housing/economic circumstances (Z59.89) PFSH All Active Problems (Updated 08/07/24 @ 22:11 by Cynthia Hsu NP) Chest pain (Acute) Acute costochondritis (Acute) Moderate opioid dependence on maintenance therapy (Acute) 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
[2024-08-07 19:46] LABS: ALT 46 U/L (16-63); AST 27 U/L (15-37); Albumin 4.3 g/dL (3.4-5.0); Alkaline Phosphatase 111 U/L (46-116); Anion Gap 9.5 mmol/L (3-11); BUN 11 mg/dL (7-18); Bilirubin, Total 0.4 mg/dL (0.2-1.0); CO2 30.5 mmol/L (21.0-32.0); Calcium 9.7 mg/dL (8.5-10.1); Chloride 100 mmol/L (98-107); Estimated GFR 100.03 (mL/min/1.73m2); Glucose 89 mg/dL (74-106); Lipase 49 U/L (<78); Magnesium 2.1 mg/dL; Potassium 4.3 mmol/L (3.5-5.1); Sodium 140 mmol/L (136-145); Total Protein 8.3 g/dL (6.4-8.2); Troponin I 7 ng/L (<or=76)
[2024-08-07 19:55] LABS: D-Dimer 338 ng/mlFEU (<500)
[2024-08-07 20:44] LABS: Troponin I 6 ng/L (<or=76)
--- NOTE | 2024-08-07 20:47 | NUR.NOTE ---
Rad at bedside for CXR Nursing Note:
[2024-08-07] MEDS: Mylanta Suspension 30 ML CUP PO (20:52)
[2024-08-07] MEDS: Lidocaine 2% Viscous 15 ML CUP PO (20:54)
[2024-08-07] MEDS: Ketorolac 15 MG/ML VIAL IVP (21:28)
--- NOTE | 2024-08-07 21:29 | DI.VRAD_ITS ---
PROCEDURE INFORMATION: Exam: XR Chest Exam date and time: 08/07/2024 8:50 PM Age: 38 years old Clinical indication: Other: Chest pain TECHNIQUE: Imaging protocol: Radiologic exam of the chest. Views: 1 view. COMPARISON: CT CHEST PE CTA 12/14/2023 9:18 PM FINDINGS: Lungs: No pulmonary consolidation is seen. Pleural spaces: No pleural effusion or pneumothorax is demonstrated. Heart/Mediastinum: The heart appears normal in size. Bones/joints: The visualized bony structures appear grossly intact, as seen. IMPRESSION: No active disease is seen in the chest. Dictated and Authenticated by: Luisito Moreno MD. Orderin Shadi Marie MD
[2024-08-07 22:37] LABS: Troponin I 5 ng/L (<or=76)
== END 2024-08-07 22:58 | disposition home or self-care (01) ==
PROVIDERS: Emergency Provider Registered Nurse Emergency; PCP Family Medicine
DX: M94.0 Chondrocostal junction syndrome [Tietze] (principal); F17.210 Nicotine dependence, cigarettes, uncomplicated; Z86.711 Personal history of pulmonary embolism; Z87.820 Personal history of traumatic brain injury; Z79.01 Long term (current) use of anticoagulants
CPT/HCPCS: 80053; 83690; 93005; 96374; 99285; 71045; 83735; 84484; 85025; 85379; 93010; 99284; J1885

== ENCOUNTER 2024-08-09 11:42 | Emergency (ER) | payer MEDICAID, SELFPAY ==
[2024-08-09 11:44] VITALS: BP 113/58; PULSE 84; RESP 20; TEMP 37; O2SAT 99
[2024-08-09 12:00] VITALS: BP 159/78; PULSE 78; RESP 18; TEMP 37; O2SAT 100
[2024-08-09] MEDS: Lactated Ringers 1,000 ML 1000 ML IV (12:09)
[2024-08-09] MEDS: Metoclopramide 10 MG/2 ML VIAL IVP (12:10)
[2024-08-09 12:12] LABS: Abs Immature Grans 0.01 10^3/uL (0.0-0.06); Absolute Basophil Count 0.03 10^3/uL (0.0-0.2); Absolute Eosinophil Count 0.08 10^3/uL (0.0-0.7); Absolute Lymphocyte Count 1.42 10^3/uL (1.2-3.4); Basophils % 0.6 %; Eosinophils % 1.6 %; HCT 43.7 % (40.0-50.0); HGB 14.6 g/dL (13.5-17.5); Immature Grans % 0.2 %; Lymphocytes % 28.2 %; MCH 26.9 pg (27.0-33.0); MCHC 33.4 % (32.0-36.0); MCV 81 fL (80-95); MPV 9.9 fL (8.0-11.0); Monocytes % 7.9 %; Neutrophils % 61.5 %; Platelet Count 226 10^3/uL (130-400); RBC 5.43 10^6/uL (4.36-5.78); RDW 13.9 % (11.8-14.1); RDW-SD 40.7 fL; WBC 5.04 10^3/uL (4.4-10.8)
[2024-08-09 12:27] LABS: ALT 80 U/L (16-63); AST 37 U/L (15-37); Albumin 4.4 g/dL (3.4-5.0); Alkaline Phosphatase 116 U/L (46-116); Anion Gap 13.9 mmol/L (3-11); BUN 14 mg/dL (7-18); Bilirubin, Total 0.5 mg/dL (0.2-1.0); CO2 24.1 mmol/L (21.0-32.0); CREATININE 1.1 mg/dL (0.70-1.30); Calcium 10.2 mg/dL (8.5-10.1); Chloride 103 mmol/L (98-107); Estimated GFR 89.22 (mL/min/1.73m2); Glucose 115 mg/dL (74-106); Lipase 25 U/L (<78); Magnesium 1.9 mg/dL; Potassium 3.8 mmol/L (3.5-5.1); Sodium 141 mmol/L (136-145); Total Protein 8.4 g/dL (6.4-8.2)
[2024-08-09] MEDS: Droperidol 5 MG/2 ML VIAL 2.5 MG IVP (14:32)
--- NOTE | 2024-08-09 15:42 | ED.GENADUL_ITS ---
Discharge Plan Disposition Patient Disposition: Home Condition: Stable Discharge Details Clinical Impression: Nausea & vomiting Primary Care Provider: John Brady ED Provider: Catarino Corona Home Meds and New Rx's Prescriptions: Continued ondansetron 4 mg tablet,disintegrating 4 mg PO Q8H PRN Patient Comments: DISSOLVE 1 TABLET UNDER THE TONGUE EVERY 8 HOURS NEEDED FOR NAUS EA/VOMITING pantoprazole 40 mg tablet,delayed release (DR/EC) 40 mg PO DAILY Patient Comments: TAKE ONE TABLET BY MOUTH EVERY DAY doxycycline hyclate 100 mg capsule 100 mg PO BID Patient Comments: TAKE ONE CAPSULE BY MOUTH TWICE A DAY methadone 10 mg/mL concentrate 170 mg PO QDAY Patient Comments: missed a few doses but did take today methylphenidate HCl 20 mg tablet 20 mg PO BID levetiracetam 500 mg tablet 500 mg PO BID Patient Comments: TAKE ONE TABLET BY MOUTH TWICE A DAY gabapentin 800 mg tablet 800 mg PO TID Patient Comments: TAKE ONE TABLET BY MOUTH THREE TIMES A DAY Xarelto 20 mg tablet 20 mg PO DAILY Patient Comments: TAKE ONE TABLET BY MOUTH EVERY EVENING No Action promethazine 25 mg tablet 25 mg PO TID PRN (Reason: nausea and vomiting) Qty: 7 0RF promethazine 25 mg suppository 25 mg NM Q8H PRN PRN (Reason: nausea and vomiting) Qty: 12 0RF Discharge Instructions Instructions: Nausea and vomiting in adults Additional Instructions: Please drink small amounts of clear fluid frequently in order to stay hydrated. Please follow-up with your primary care physician. Call today to arrange timely follow-up for next week. Return to the emergency department immediately for any worsening or new concerning symptoms. Referrals: John Brady [Primary Care Provider] - Discharge Data Discharge Date/Time-TO BE ENTERED AT DEPARTURE: 08/09/24 16:49 HPI General Date/Time Provider Initiated Documentation: 08/09/24 11:44 . Limitations to Documentation: no limitations . Information obtained by: patient and family . HPI Narrative: HISTORY OF PRESENT ILLNESS The patient presents with nausea and vomiting, accompanied by his . Two days ago, he had severe chest pain and burning sensation, diagnosed as acute heartburn. He was evaluated here in the emergency department and no emergent condition identified. Patient was prescribed medication and discharged. He has continued to have nausea. He vomited upon waking this morning. His administered two 4 mg ondansetron tablets, which he swallowed with his antibiotic, but vomited again. His appetite is diminished except when smoking. He is on a twice-daily antibiotic regimen, tolerable only post-meal. He reports no known sick contacts. Patient has diffuse body pain. He is on methadone for chronic pain, with a recent dosage increase. He has not taken methadone today. He has a scheduled appointment on 08/15/2024 for chronic pain management. He reports generalized body pain, especially leg pain. Related Data Home Medications ?Medication ?Instructions ?Recorded ?Confirmed methadone 10 mg/mL oral concentrate 170 mg PO QDAY 04/29/23 08/10/24 methylphenidate HCl 20 mg tablet 20 mg PO BID 07/20/23 08/10/24 gabapentin 800 mg tablet 800 mg PO TID 06/06/24 08/10/24 levetiracetam 500 mg tablet 500 mg PO BID 06/06/24 08/10/24 rivaroxaban 20 mg tablet (Xarelto) 20 mg PO DAILY 08/07/24 08/10/24 doxycycline hyclate 100 mg capsule 100 mg PO BID 08/09/24 08/10/24 ondansetron 4 mg disintegrating 4 mg PO Q8H PRN 08/09/24 08/10/24 tablet pantoprazole 40 mg tablet,delayed 40 mg PO DAILY 08/09/24 08/10/24 release promethazine 25 mg rectal 25 mg NM Q8H PRN PRN nausea and 08/10/24 08/10/24 suppository vomiting #12 ea promethazine 25 mg tablet 25 mg PO TID PRN nausea and 08/10/24 08/10/24 vomiting #7 tabs Previous Rx's ?Medication ?Instructions ?Recorded promethazine 25 mg rectal 25 mg NM Q8H PRN PRN nausea and 08/10/24 suppository vomiting #12 ea promethazine 25 mg tablet 25 mg PO TID PRN nausea and 08/10/24 vomiting #7 tabs Allergies Allergy/AdvReac Type Severity Reaction Status Date / Time Penicillins Allergy Severe Anaphylaxis Verified 08/10/24 15:40 General Stated Complaint: Nausea/Vomit/Diar SALVADOR: 3 Review of Systems All systems reviewed & are unremarkable except as noted in HPI and below Constitutional Constitutional: Denies fever(s) Gastrointestinal Gastrointestinal: Reports as per HPI, Reports nausea and Reports vomiting Exam Const General: uncomfortable and anxious Nutritional Appearance: average body habitus Orientation: alert HENMT Mouth: mucous membranes dry Eyes Conjunctivae: normal conjunctivae Sclera: normal sclerae EOM: EOM intact bilaterally Neck Neck: trachea midline and supple Resp Auscultation: clear to auscultation bilaterally, no rales, no rhonchi and no wheezes Cardio Jugular venous pressure: no JVD Rate: regular rate and not tachycardic Rhythm: regular rhythm GI Inspection: non-distended Palpation: soft, not firm, no guarding, no masses, not rigid and tender (Diffuse) Skin General skin exam: no rashes or lesions noted Neuro General: patient alert, patient awake and tone normal Extrem General: no edema Psych Appearance: grossly normal Mental Status: mental status grossly normal Affect: animated and anxious affect Course Vital Signs Vital signs: Vital Signs Temperature 37.0 C 08/09/24 11:44 Pulse 84 08/09/24 11:44 Respiratory Rate 20 08/09/24 11:44 Blood Pressure 113/58 L 08/09/24 11:44 Pulse Oximetry 99 08/09/24 11:44 Temperature 37.0 C 08/09/24 12:00 Temperature Source Tympanic 08/09/24 12:00 Pulse 78 08/09/24 12:00 Respiratory Rate 18 08/09/24 12:00 Blood Pressure 159/78 H 08/09/24 12:00 Pulse Oximetry 100 08/09/24 12:00 Oxygen Delivery Method Room Air 08/09/24 12:00 Lab/Test Results Lab/Test Results: Laboratory Tests Range/Units 08/09/24 12:06 WBC (4.4-10.8) 10^3/uL 5.04 RBC (4.36-5.78) 10^6/uL 5.43 Hgb (13.5-17.5) g/dL 14.6 Hct (40.0-50.0) % 43.7 MCV (80-95) fL 81 MCH (27.0-33.0) pg 26.9 L MCHC (32.0-36.0) % 33.4 RDW (11.8-14.1) % 13.9 Plt Count (130-400) 10^3/uL 226 MPV (8.0-11.0) fL 9.9 Immature Gran % % 0.2 Neutrophils % % 61.5 Lymphocytes % % 28.2 Monocytes % % 7.9 Eosinophils % % 1.6 Basophils % % 0.6 Nucleated RBC % (0.0-0.3) % 0.0 Absolute Neutrophils (1.2-6.7) 10^3/uL 3.10 Absolute Lymphocytes (1.2-3.4) 10^3/uL 1.42 Absolute Monocytes (0.1-0.8) 10^3/uL 0.40 Absolute Eosinophils (0.0-0.7) 10^3/uL 0.08 Absolute Basophils (0.0-0.2) 10^3/uL 0.03 Sodium (136-145) mmol/L 141 Potassium (3.5-5.1) mmol/L 3.8 Chloride (98-107) mmol/L 103 Carbon Dioxide (21.0-32.0) mmol/L 24.1 Anion Gap (3-11) mmol/L 13.9 H BUN (7-18) mg/dL 14 Creatinine (0.70-1.30) mg/dL 1.1 Est GFR (CKD-EPI 2020) (mL/min/1.73m2) 89.22 Glucose (74-106) mg/dL 115 H Calcium (8.5-10.1) mg/dL 10.2 H Magnesium mg/dL 1.9 Total Bilirubin (0.2-1.0) mg/dL 0.5 AST (15-37) U/L 37 ALT (16-63) U/L 80 H Alkaline Phosphatase (46-116) U/L 116 Total Protein (6.4-8.2) g/dL 8.4 H Albumin (3.4-5.0) g/dL 4.4 Lipase (<78) U/L 25 Medical Decision Making ASSESSMENT AND PLAN Initial Assessment: Patient presents with nausea and vomiting since yesterday. Dehydrated. ED Course: - Established IV line for fluids and antiemetic. - Administered Reglan for nausea. Symptoms did improve minimally but then had recurrent nausea and vomiting. EKG from prior ED visit was reviewed and normal QTc. Droperidol was given IV for nausea. - Patient has not yet taken today's methadone dose. Plan for him to administer after nausea improved. -Labs reviewed and nondiagnostic. No electrolyte abnormalities. No leukocytosis. Normal LFTs. Normal lipase. - 1630 --patient reassessed and feeling much better after antiemetics. Patient tolerating oral intake. Plan for discharge with outpatient follow-up. Final Assessment: Patient was treated with IV fluids and antiemetic for nausea and vomiting. Chronic pain management was addressed, noting the missed methadone dose and upcoming appointment. Clinical Impression: - Nausea and vomiting - Dehydration Disposition: - Follow-Up: Scheduled appointment on 08/15/2024 for further chronic pain management. This document was written with the assistance of SANCHEZ Ching. The patient consented to its use. Lab Data Lab results reviewed: Yes I reviewed the patient's lab results. Labs: Laboratory Tests Range/Units 08/09/24 12:06 WBC (4.4-10.8) 10^3/uL 5.04 RBC (4.36-5.78) 10^6/uL 5.43 Hgb (13.5-17.5) g/dL 14.6 Hct (40.0-50.0) % 43.7 MCV (80-95) fL 81 MCH (27.0-33.0) pg 26.9 L MCHC (32.0-36.0) % 33.4 RDW (11.8-14.1) % 13.9 Plt Count (130-400) 10^3/uL 226 MPV (8.0-11.0) fL 9.9 Immature Gran % % 0.2 Neutrophils % % 61.5 Lymphocytes % % 28.2 Monocytes % % 7.9 Eosinophils % % 1.6 Basophils % % 0.6 Nucleated RBC % (0.0-0.3) % 0.0 Absolute Neutrophils (1.2-6.7) 10^3/uL 3.10 Absolute Lymphocytes (1.2-3.4) 10^3/uL 1.42 Absolute Monocytes (0.1-0.8) 10^3/uL 0.40 Absolute Eosinophils (0.0-0.7) 10^3/uL 0.08 Absolute Basophils (0.0-0.2) 10^3/uL 0.03 Sodium (136-145) mmol/L 141 Potassium (3.5-5.1) mmol/L 3.8 Chloride (98-107) mmol/L 103 Carbon Dioxide (21.0-32.0) mmol/L 24.1 Anion Gap (3-11) mmol/L 13.9 H BUN (7-18) mg/dL 14 Creatinine (0.70-1.30) mg/dL 1.1 Est GFR (CKD-EPI 2020) (mL/min/1.73m2) 89.22 Glucose (74-106) mg/dL 115 H Calcium (8.5-10.1) mg/dL 10.2 H Magnesium mg/dL 1.9 Total Bilirubin (0.2-1.0) mg/dL 0.5 AST (15-37) U/L 37 ALT (16-63) U/L 80 H Alkaline Phosphatase (46-116) U/L 116 Total Protein (6.4-8.2) g/dL 8.4 H Albumin (3.4-5.0) g/dL 4.4 Lipase (<78) U/L 25 Quality:SDOH Health Related Social Needs: Health related social needs housing instability, house d, with risk of homelessness (Z59.811), food insecurity (Z59.41), material hardship(utilities) (Z59.12), transportation insecurity (Z59.82), problems related to housing/economic circumstances (Z59.89) PFSH All Active Problems (Updated 08/10/24 @ 16:38 by Heath Travis MD) Nausea & vomiting (Acute) Chest pain (Acute) Acute costochondritis (Acute) Moderate opioid dependence on maintenance therapy (Acute) 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
[2024-08-09 16:49] VITALS: BP 124/67; PULSE 83; RESP 16; O2SAT 98
== END 2024-08-09 16:49 | disposition home or self-care (01) ==
PROVIDERS: Emergency Provider Student in an Organized Health Care Education/Training Program; PCP Family Medicine
DX: R11.10 Vomiting, unspecified (principal); G89.29 Other chronic pain; F17.210 Nicotine dependence, cigarettes, uncomplicated; Z79.891 Long term (current) use of opiate analgesic
CPT/HCPCS: 80053; 83690; 96361; 96374; 96375; 99284; 83735; 85025; J1790; J2765

== ENCOUNTER 2024-08-10 09:51 | Emergency (ER) | payer MEDICAID, SELFPAY ==
[2024-08-10 09:53] VITALS: BP 133/64; PULSE 66; RESP 18; TEMP 36.8; O2SAT 96
--- NOTE | 2024-08-10 09:59 | ED.GENADUL_ITS ---
Discharge Plan Disposition Patient Disposition: Home Condition: Fair Discharge Details Clinical Impression: Nausea & vomiting Primary Care Provider: John Brady ED Provider: Gina Hopper Home Meds and New Rx's Prescriptions: New promethazine 25 mg tablet 25 mg PO TID PRN (Reason: nausea and vomiting) Qty: 7 0RF promethazine 25 mg suppository 25 mg [place] Q8H PRN PRN (Reason: nausea and vomiting) Qty: 12 0RF No Action ondansetron 4 mg tablet,disintegrating 4 mg PO Q8H PRN Patient Comments: DISSOLVE 1 TABLET UNDER THE TONGUE EVERY 8 HOURS NEEDED FOR NAUSEA/VOMITING pantoprazole 40 mg tablet,delayed release (DR/EC) 40 mg PO DAILY Patient Comments: TAKE ONE TABLET BY MOUTH EVERY DAY doxycycline hyclate 100 mg capsule 100 mg PO BID Patient Comments: TAKE ONE CAPSULE BY MOUTH TWICE A DAY methadone 10 mg/mL concentrate 170 mg PO QDAY Patient Comments: missed a few doses but did take today methylphenidate HCl 20 mg tablet 20 mg PO BID levetiracetam 500 mg tablet 500 mg PO BID Patient Comments: TAKE ONE TABLET BY MOUTH TWICE A DAY gabapentin 800 mg tablet 800 mg PO TID Patient Comments: TAKE ONE TABLET BY MOUTH THREE TIMES A DAY Xarelto 20 mg tablet 20 mg PO DAILY Patient Comments: TAKE ONE TABLET BY MOUTH EVERY EVENING Discharge Instructions Additional Instructions: Additional nausea medication has been sent to the pharmacy please. Please use these medications as needed and in addition to the oral Zofran that you were provided yesterday please follow-up with your PCP with any ongoing issues. HPI General Date/Time Provider Initiated Documentation: 08/10/24 09:55 . Limitations to Documentation: no limitations . Information obtained by: patient, EMS and old records reviewed . HPI Narrative: 38y m with PMH of TBI, opiod dependence presents for evaluation of vomiting. This is his 3rd ED visit this week and was seen yesterday for vomiting. he states that he felt better at discharge and went home and slept all night. this morning when he woke up, he had a few episodes of vomiting. he says he tried the zofran but as soon as it hit his tongue he started gagging. denies fever, abdominal pain or diarrhea. Related Data Home Medications ?Medication ?Instructions ?Recorded ?Confirmed methadone 10 mg/mL oral concentrate 170 mg PO QDAY 04/29/23 08/10/24 methylphenidate HCl 20 mg tablet 20 mg PO BID 07/20/23 08/10/24 gabapentin 800 mg tablet 800 mg PO TID 06/06/24 08/10/24 levetiracetam 500 mg tablet 500 mg PO BID 06/06/24 08/10/24 rivaroxaban 20 mg tablet (Xarelto) 20 mg PO DAILY 08/07/24 08/10/24 doxycycline hyclate 100 mg capsule 100 mg PO BID 08/09/24 08/10/24 ondansetron 4 mg disintegrating 4 mg PO Q8H PRN 08/09/24 08/10/24 tablet pantoprazole 40 mg tablet,delayed 40 mg PO DAILY 08/09/24 08/10/24 release promethazine 25 mg rectal 25 mg MS Q8H PRN PRN nausea and 08/10/24 suppository vomiting #12 ea promethazine 25 mg tablet 25 mg PO TID PRN nausea and 08/10/24 vomiting #7 tabs Previous Rx's ?Medication ?Instructions ?Recorded promethazine 25 mg rectal 25 mg MS Q8H PRN PRN nausea and 08/10/24 suppository vomiting #12 ea promethazine 25 mg tablet 25 mg PO TID PRN nausea and 08/10/24 vomiting #7 tabs Allergies Allergy/AdvReac Type Severity Reaction Status Date / Time Penicillins Allergy Severe Anaphylaxis Verified 08/10/24 09:58 General Stated Complaint: Nausea/Vomit/Diar SALVADOR: 3 Exam Narrative Exam Narrative: Review of Systems: All systems reviewed & are unremarkable except as noted in HPI and below Well-developed, no acute distress NCAT moist mucus membranes RRR Unlabored respiratory effort, CTAB Nondistended abdomen , soft nt Course Vital Signs Vital signs: Vital Signs Temperature 36.8 C 08/10/24 09:53 Pulse 66 08/10/24 09:53 Respiratory Rate 18 08/10/24 09:53 Blood Pressure 133/64 08/10/24 09:53 Pulse Oximetry 96 08/10/24 09:53 Temperature 36.8 C 08/10/24 09:53 Temperature Source Temporal Artery Scan 08/10/24 09:53 Pulse 66 08/10/24 09:53 Respiratory Rate 18 08/10/24 09:53 Blood Pressure 133/64 08/10/24 09:53 Pulse Oximetry 96 08/10/24 09:53 Oxygen Delivery Method Room Air 08/10/24 09:53 Oxygen Flow Rate 0 08/10/24 09:53 Medical Decision Making emergent evaluation of vomiting. patient seen for same yesterday. i reviewed that visit including lab work obtained. No significant abnormalities of concern. given that he hasn't really had much vomiting since yesterday, I doubt acute electrolyte derangement or dehydration. Vitals are stable and he is afebrile, so I doubt acute intra abdominal infectious etiology. Will start with IM droperidol for symptom relief. No additional vomiting after IM droperidol. Stable for discharge. Oral and rectal Phenergan suppository sent to the pharmacy to take as needed. Recommend close follow-up with PCP. 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
[2024-08-10] MEDS: Droperidol 5 MG/2 ML VIAL IM (10:02)
[2024-08-10 10:05] VITALS: BP 133/64; PULSE 66; RESP 18; TEMP 36.8; O2SAT 96
[2024-08-10 11:29] VITALS: BP 149/58; PULSE 72; RESP 19; O2SAT 97
== END 2024-08-10 11:56 | disposition home or self-care (01) ==
PROVIDERS: Emergency Provider Emergency Medicine; PCP Family Medicine
DX: R11.2 Nausea with vomiting, unspecified (principal); F17.210 Nicotine dependence, cigarettes, uncomplicated; Z79.01 Long term (current) use of anticoagulants
CPT/HCPCS: 96372; 99284; 99283; J1790

== ENCOUNTER 2024-08-10 14:58 | Emergency (ER) | payer MEDICAID, SELFPAY ==
[2024-08-10 15:00] VITALS: BP 156/92; PULSE 92; RESP 18; TEMP 35.9; O2SAT 96
--- NOTE | 2024-08-10 15:00 | RT.EKG_ITS ---
APPROVED REPORT Exam: Resting ECG Reason for Exam: n/v, check qtc Patient Location: E HR:66 bpm ECG Measurements Heart Rate 66 AXIS OR 205 P 16 QRSd 108 QRS 50 QT 402 T -82 QTc 421 Conclusion Sinus rhythm...normal P axis, V-rate 60- 99 Ventricular premature complex...V complex w/ short R-R interval Borderline prolonged OR interval...OR >202, V-rate 50- 90 Nonspecific repol abnormality, diffuse leads...ST dep, T flat/neg, ant/lat/inf
[2024-08-10 15:08] VITALS: BP 156/92; PULSE 92; RESP 18; TEMP 35.9; O2SAT 96
--- NOTE | 2024-08-10 15:11 | W.ED.GENAD ---
Discharge Plan Disposition Patient Disposition: Home Condition: Stable Discharge Details Clinical Impression: Nausea & vomiting Primary Care Provider: John Brady ED Provider: Heath Travis Home Meds and New Rx's Prescriptions: Continued ondansetron 4 mg tablet,disintegrating 4 mg PO Q8H PRN Patient Comments: DISSOLVE 1 TABLET UNDER THE TONGUE EVERY 8 HOURS NEEDED FOR NAUSEA/VOMITING pantoprazole 40 mg tablet,delayed release (DR/EC) 40 mg PO DAILY Patient Comments: TAKE ONE TABLET BY MOUTH EVERY DAY doxycycline hyclate 100 mg capsule 100 mg PO BID Patient Comments: TAKE ONE CAPSULE BY MOUTH TWICE A DAY methadone 10 mg/mL concentrate 170 mg PO QDAY Patient Comments: missed a few doses but did take today methylphenidate HCl 20 mg tablet 20 mg PO BID levetiracetam 500 mg tablet 500 mg PO BID Patient Comments: TAKE ONE TABLET BY MOUTH TWICE A DAY gabapentin 800 mg tablet 800 mg PO TID Patient Comments: TAKE ONE TABLET BY MOUTH THREE TIMES A DAY Xarelto 20 mg tablet 20 mg PO DAILY Patient Comments: TAKE ONE TABLET BY MOUTH EVERY EVENING promethazine 25 mg tablet 25 mg PO TID PRN (Reason: nausea and vomiting) Qty: 7 0RF promethazine 25 mg suppository 25 mg [place] Q8H PRN PRN (Reason: nausea and vomiting) Qty: 12 0RF Discharge Instructions Additional Instructions: Try to make sure you are taking methadone around the same time daily. If symptoms continue this week follow-up with your primary care provider. If you feel significantly more ill or have new symptoms such as high fevers return to the emergency department for evaluation HPI General Mode of arrival: EMS. Date/Time Provider Initiated Documentation: 08/10/24 15:05. Limitations to Documentation: no limitations. Information obtained by: patient. History of Present Illness 38 year old M presents to the emergency department with the chief complaint of n/v, described as moderate, Patient started experiencing this day(s) (1) and it has been constant. No relieving factors improve symptom(s), No exacerbating factors reported . Patient notes no other symptoms.. Patient did receive the following treatments prior to arrival, none Related Data Home Medications ?Medication ?Instructions ?Recorded ?Confirmed methadone 10 mg/mL oral concentrate 170 mg PO QDAY 04/29/23 08/10/24 methylphenidate HCl 20 mg tablet 20 mg PO BID 07/20/23 08/10/24 gabapentin 800 mg tablet 800 mg PO TID 06/06/24 08/10/24 levetiracetam 500 mg tablet 500 mg PO BID 06/06/24 08/10/24 rivaroxaban 20 mg tablet (Xarelto) 20 mg PO DAILY 08/07/24 08/10/24 doxycycline hyclate 100 mg capsule 100 mg PO BID 08/09/24 08/10/24 ondansetron 4 mg disintegrating 4 mg PO Q8H PRN 08/09/24 08/10/24 tablet pantoprazole 40 mg tablet,delayed 40 mg PO DAILY 08/09/24 08/10/24 release promethazine 25 mg rectal 25 mg [place] Q8H PRN PRN nausea and 08/10/24 08/10/24 suppository vomiting #12 ea promethazine 25 mg tablet 25 mg PO TID PRN nausea and 08/10/24 08/10/24 vomiting #7 tabs Previous Rx's ?Medication ?Instructions ?Recorded promethazine 25 mg rectal 25 mg [place] Q8H PRN PRN nausea and 08/10/24 suppository vomiting #12 ea promethazine 25 mg tablet 25 mg PO TID PRN nausea and 08/10/24 vomiting #7 tabs Allergies Allergy/AdvReac Type Severity Reaction Status Date / Time Penicillins Allergy Severe Anaphylaxis Verified 08/10/24 15:40 General Stated Complaint: Nausea/Vomit/Diar SALVADOR: 4 Review of Systems All systems reviewed & are unremarkable except as noted in HPI and below Constitutional Constitutional: Denies chills, Denies fever(s) and Denies weakness Cardiovascular Cardiovascular: Denies chest pain and Denies dyspnea Respiratory Respiratory: Denies cough and Denies dyspnea Gastrointestinal Gastrointestinal: Denies abdominal pain, Reports nausea and Reports vomiting Neurologic Neurologic: Denies weakness Psychiatric Psychiatric: Denies depression Exam Const General: no acute distress Orientation: alert HENMT Head: normal to inspection Ears: external ears normal General nose exam: external nose normal Mouth: moist mucous membranes Eyes General: appearance normal, both eyes and all related structures Neck Neck: normal visual inspection Resp Effort & Inspection: normal respiratory effort and able to speak in complete sentences Cardio Rate: regular rate GI Palpation: soft and nontender Skin General skin exam: no rashes or lesions noted Neuro General: patient alert and patient oriented x3 Extrem General: normal to inspection Psych Mental Status: mental status grossly normal Course Vital Signs Vital signs: Vital Signs Temperature 35.9 C L 08/10/24 15:00 Pulse 92 H 08/10/24 15:00 Respiratory Rate 18 08/10/24 15:00 Blood Pressure 156/92 H 08/10/24 15:00 Pulse Oximetry 96 08/10/24 15:00 Temperature 35.9 C L 08/10/24 15:08 Pulse 92 H 08/10/24 15:08 Respiratory Rate 18 08/10/24 15:08 Blood Pressure 156/92 H 08/10/24 15:08 Blood Pressure Position Supine 08/10/24 15:08 Pulse Oximetry 96 08/10/24 15:08 Oxygen Delivery Method Room Air 08/10/24 15:08 Oxygen Flow Rate 0 08/10/24 15:08 Medical Decision Making 38-year-old male comes in with continued nausea vomiting. He was seen yesterday he was treated with antiemetics and labs that were unremarkable on discharge. 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 Says he got home and started vomiting again so came here. He denies any chest pain, fevers, drug use, abdominal pain. He has not had methadone since yesterday but he is unsure if this is accurate or not. His abdomen is soft and nontender. I doubt surgical pathology. I will treat his symptoms with droperidol with his QT is not prolonged on EKG and recheck a CBC and CMP Labs unremarkable, patient feels better and is tolerating p.o. and took his home dose of methadone. I suspect gastroenteritis and possibly methadone withdrawal. Given he is tolerating p.o. and has no abdominal tenderness do not feel any further testing is indicated. He will follow-up with his PCP as needed return precautions given Differential Diagnosis Differential Diagnosis: Gastroenteritis, methadone withdrawal Lab Data Lab results reviewed: Yes I reviewed the patient's lab results. ECG Data Attestation: I personally reviewed and interpreted this ECG (s) as follows: Prior ECG tracings: available for review Interpretation: sinus rate of 66 no stemi qtc 402 Quality:SDOH Health Related Social Needs: Health related social needs housing instability, housed, with risk of homelessness (Z59.811), food insecurity (Z59.41), material hardship(utilities) (Z59.12), transportation insecurity (Z59.82), problems related to housing/economic circumstances (Z59.89) [facility] All Active Problems (Updated 08/10/24 @ 16:38 by Heath Travis MD) Nausea & vomiting (Acute) Chest pain (Acute) Acute costochondritis (Acute) Moderate opioid dependence on maintenance therapy (Acute) 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
[2024-08-10 15:27] LABS: Abs Immature Grans 0.01 10^3/uL (0.0-0.06); Absolute Basophil Count 0.02 10^3/uL (0.0-0.2); Absolute Lymphocyte Count 0.91 10^3/uL (1.2-3.4); Absolute Monocyte Count 0.34 10^3/uL (0.1-0.8); Basophils % 0.3 %; HCT 42.9 % (40.0-50.0); HGB 14.2 g/dL (13.5-17.5); Immature Grans % 0.2 %; MCHC 33.1 % (32.0-36.0); MCV 82 fL (80-95); MPV 10.1 fL (8.0-11.0); Monocytes % 5.6 %; Neutrophils % 78.9 %; Platelet Count 231 10^3/uL (130-400); RBC 5.25 10^6/uL (4.36-5.78); RDW 13.8 % (11.8-14.1); RDW-SD 40.7 fL; WBC 6.08 10^3/uL (4.4-10.8)
[2024-08-10] MEDS: Droperidol 5 MG/2 ML VIAL 2.5 MG IM (15:45)
[2024-08-10 15:58] LABS: ALT 61 U/L (16-63); AST 30 U/L (15-37); Albumin 4.2 g/dL (3.4-5.0); Alkaline Phosphatase 102 U/L (46-116); Anion Gap 13.3 mmol/L (3-11); BUN 11 mg/dL (7-18); Bilirubin, Total 0.3 mg/dL (0.2-1.0); CO2 23.7 mmol/L (21.0-32.0); Calcium 9.3 mg/dL (8.5-10.1); Chloride 106 mmol/L (98-107); Estimated GFR 100.03 (mL/min/1.73m2); Glucose 122 mg/dL (74-106); Magnesium 1.6 mg/dL; Potassium 3.7 mmol/L (3.5-5.1); Sodium 143 mmol/L (136-145); Total Protein 7.9 g/dL (6.4-8.2)
[2024-08-10] MEDS: Promethazine 25 MG SUPP PR (16:46)
== END 2024-08-10 16:59 | disposition home or self-care (01) ==
PROVIDERS: Emergency Provider Emergency Medicine; PCP Family Medicine
DX: F11.20 Opioid dependence, uncomplicated (principal); F17.210 Nicotine dependence, cigarettes, uncomplicated; Z79.01 Long term (current) use of anticoagulants
CPT/HCPCS: 36415; 80053; 87637; 93005; 96372; 99284; 83735; 85025; 93010; 99283; J1790

== ENCOUNTER 2024-08-21 10:41 | Emergency (ER) | payer MEDICAID, SELFPAY ==
[2024-08-21 10:41] VITALS: BP 111/81; PULSE 87; RESP 18; O2SAT 97
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
[2024-08-21 10:52] VITALS: TEMP 36.1
--- NOTE | 2024-08-21 11:06 | NUR.NOTE ---
Called [facility] to verify Pts methadone dose for Linwood Newby. Susan at [facility] stated that his dose is 180 mg a day. 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
--- NOTE | 2024-08-21 11:45 | DI.RAD_ITS ---
Exam(s) XR CHEST 1V IN DI DEPT EXAM: XR CHEST 1V IN DI DEPT CLINICAL HISTORY: elev lactate, infection search TECHNIQUE: 2D digital imaging was performed. COMPARISON: CR,XR XR PORTABLE CHEST AP from 08/07/2024 FINDINGS: LUNGS: Clear. No pleural abnormality seen. HEART: Normal size. AORTA: Normal diameter. BONES: Unremarkable for age. Soft tissues: Unremarkable. IMPRESSION: No acute findings. DATA REPOSITORY: RADIATION DOSE DELIVERED:
--- NOTE | 2024-08-21 11:45 | DI.CT_ITS ---
Exam(s) CT ABDOMEN PELVIS W EXAM: CT ABDOMEN PELVIS W CLINICAL HISTORY: intractable vomiting, elevated lactate, abd pain. TECHNIQUE: Imaging Protocol: Axial computed tomography images with coronal and sagittal reformatted images were created and reviewed CONTRAST MATERIAL: Intravenous: Omnipaque 350 Contrast volume:70 ml Oral: no COMPARISON: CT CT CHEST/ABD/PEL W from 04/29/2023 CR XR CHEST 1V IN DI DEPT from 08/21/2024 FINDINGS: ABDOMEN and PELVIS: Exam is mildly limited by streak artifact related arm positioning. Lung Bases: No definite consolidation. Dependent changes. Liver: Normal density. No suspicious mass. Gallbladder and biliary tract: No radiodense calculus. No wall thickening or pericholecystic fluid. Mild dilatation of the common bile duct which appears stable from the prior exam Pancreas: Normal density. No abnormal calcifications or inflammatory process. No evidence of mass. Spleen: Normal. Kidneys: Normal size, contour and axis. No radiodense stones. No obstructive uropathy. No suspicious masses seen. Adrenal glands: No masses seen. Vasculature: Abdominal aorta non-dilated. Soft tissues: Unremarkable. Bladder: Mild wall thickening, likely secondary to under distension.. No calculi.No focal mass. Bowel: No obstruction. No bowel wall thickening. Appendix normal. Normal quantity of stool. Peritoneal cavity: No ascites. No focal collection. No mesenteric inflammatory response. No free air . Bones: Hardware in the upper right femur. Reproductive organs: Unremarkable. Lymph nodes: No pathologically enlarged lymph nodes. IMPRESSION:: No acute abnormality in the abdomen or pelvis. RADIATION DOSE DELIVERED: Total DLP DATA REPOSITORY: All CT scans at this facility are submitted to the National Radiology Data Registry (NRDR) Dose Index Registry (DIR) with the [employer] (A[employer]). RADIATION OPTIMIZATION: All CT scans at this facility use at least one of these dose optimization te chniques: automated exposure control; mA and/or kV adjustment per patient size (includes targeted exa ms where dose is matched to clinical indication); or iterative reconstruction.
[2024-08-21 11:47] LABS: Abs Immature Grans 0.03 10^3/uL (0.0-0.06); Absolute Basophil Count 0.02 10^3/uL (0.0-0.2); Absolute Lymphocyte Count 1.14 10^3/uL (1.2-3.4); Absolute Monocyte Count 0.38 10^3/uL (0.1-0.8); Absolute Neutrophil Count 4.63 10^3/uL (1.2-6.7); Basophils % 0.3 %; Eosinophils % 1.6 %; HCT 41.7 % (40.0-50.0); HGB 13.6 g/dL (13.5-17.5); Immature Grans % 0.5 %; Lactate 3.4 mmol/L (<or=2.0); Lymphocytes % 18.1 %; MCH 26.9 pg (27.0-33.0); MCHC 32.6 % (32.0-36.0); MCV 82 fL (80-95); MPV 10.3 fL (8.0-11.0); Neutrophils % 73.5 %; Platelet Count 283 10^3/uL (130-400); RBC 5.06 10^6/uL (4.36-5.78); RDW 14.2 % (11.8-14.1); RDW-SD 42.6 fL
[2024-08-21 12:04] LABS: ALT 87 U/L (16-63); AST 55 U/L (15-37); Albumin 4.1 g/dL (3.4-5.0); Alkaline Phosphatase 106 U/L (46-116); Anion Gap 14.4 mmol/L (3-11); BUN 10 mg/dL (7-18); Bilirubin, Total 0.3 mg/dL (0.2-1.0); CO2 24.6 mmol/L (21.0-32.0); Calcium 10.3 mg/dL (8.5-10.1); Chloride 101 mmol/L (98-107); Estimated GFR 100.03 (mL/min/1.73m2); Glucose 122 mg/dL (74-106); Lipase 42 U/L (<78); Magnesium 1.8 mg/dL; Potassium 3.4 mmol/L (3.5-5.1); Sodium 140 mmol/L (136-145); Total Protein 8.1 g/dL (6.4-8.2)
[2024-08-21] MEDS: VANCOMYCIN/WATER (PEG) 1.5 GM/300 ML BAG IVPB (12:17)
[2024-08-21] MEDS: CEFEPIME 2 GM in Normal Saline 100 ML IVPB (12:18)
[2024-08-21] MEDS: Ondansetron 4 MG/2 ML VIAL IVP (12:22)
[2024-08-21] MEDS: diphenhydrAMINE 50 MG/ML VIAL 25 MG IVP (12:22)
[2024-08-21] MEDS: Methadone Liquid 10 MG/ML 180 MG PO (12:24)
[2024-08-21] MEDS: Normal Saline 1,000 ML 1000 ML IV (12:25)
[2024-08-21] MEDS: Omnipaque 350 MG/ML 100 ML BTL 70 ML IJ (14:08)
[2024-08-21] MEDS: Normal Saline - Diluent 50 ML VIAL IJ (14:08)
[2024-08-21 15:37] LABS: Bilirubin Negative (Negative); Blood Negative (Negative); Clarity Clear (Clear); Glucose Negative (Negative); Ketones Negative (Negative); Leukocyte Esterase Negative (Negative); Nitrite Negative (Negative); Specific Gravity 1.015 (1.005-1.025); Urobilinogen 0.2 mg/dL (Up to 0.2); pH 5.5 (5-8)
[2024-08-21 16:07] LABS: *AMPHETAMINES SCREEN URINE Negative (Negative); *BARBITURATES SCREEN URINE Negative (Negative); *BENZODIAZEPINES SCREEN URINE Negative (Negative); Cannabinoids THC Positive (Negative); Cocaine Screen,Urine Negative (Negative); METHADONE URINE SCREEN Positive (Negative); OPIATES URINE SCREEN Negative (Negative)
[2024-08-21 16:10] LABS: Tricyclic Antidepressants Negative (Negative)
[2024-08-21 16:23] VITALS: BP 112/51; PULSE 74; O2SAT 97
== END 2024-08-21 16:32 | disposition home or self-care (01) ==
PROVIDERS: Emergency Provider Physician Assistant; PCP Family Medicine
DX: R11.2 Nausea with vomiting, unspecified (principal); Z59.41 Food insecurity
CPT/HCPCS: 36415; 80053; 80307; 83690; 87040; 87637; 96365; 96366; 96368; 96375; 99285; 71045; 74177; 81003; 83605; 83735; 85025; 99284; J0692; J1200; J2405; J3372; J3490

== ENCOUNTER 2024-08-22 08:54 | Emergency (ER) | payer MEDICAID, SELFPAY ==
[2024-08-22] VITALS (24 sets, daily range): BP systolic 128–142; BP diastolic 62–73; PULSE 67–87; RESP 16; TEMP 36.6; O2SAT 92–98
--- NOTE | 2024-08-22 10:04 | ED.GENADUL_ITS ---
Discharge Plan Disposition Patient Disposition: Home Condition: Stable Discharge Details Clinical Impression: Nausea & vomiting Primary Care Provider: John Brady ED Provider: Mariel Bowman Home Meds and New Rx's Prescriptions: No Action ondansetron 4 mg tablet,disintegrating 4 mg PO Q8H PRN Patient Comments: DISSOLVE 1 TABLET UNDER THE TONGUE EVERY 8 HOURS NEEDED FOR NAUSEA/VOMITING pantoprazole 40 mg tablet,delayed release (DR/EC) 40 mg PO DAILY Patient Comments: TAKE ONE TABLET BY MOUTH EVERY DAY doxycycline hyclate 100 mg capsule 100 mg PO BID Patient Comments: TAKE ONE CAPSULE BY MOUTH TWICE A DAY methadone 10 mg/mL concentrate 170 mg PO QDAY Patient Comments: missed a few doses but did take today methylphenidate HCl 20 mg tablet 20 mg PO BID levetiracetam 500 mg tablet 500 mg PO BID Patient Comments: TAKE ONE TABLET BY MOUTH TWICE A DAY gabapentin 800 mg tablet 800 mg PO TID Patient Comments: TAKE ONE TABLET BY MOUTH THREE TIMES A DAY Xarelto 20 mg tablet 20 mg PO DAILY Patient Comments: TAKE ONE TABLET BY MOUTH EVERY EVENING promethazine 25 mg tablet 25 mg PO QID PRNQty: 30 0RF Discharge Instructions Instructions: Nausea and Vomiting, Adult ED Additional Instructions: You were seen in the ED for nausea and vomiting. You received medicines and fluids for your symptoms. You had reassuring labs and received fluids and medications including your methadone. Continue to use your nausea medications as prescribed, you may want to let you wake up in the middle of the night so that you do not wake up quite so nauseated. Unfortunately, we are unable to determine the exact cause of symptoms here in the emergency department but I am reassured by your workup today and yesterday against severe or emergent causes. Please follow-up with your primary care provider in the next few days to discuss this visit and any symptoms that change, worsen, or persist. Thank you for allowing us to be part of your care. HPI General Mode of arrival: wheelchair . Date/Time Provider Initiated Documentation: 08/22/24 08:55 . Limitations to Documentation: no limitations . Information obtained by: patient, family and old records reviewed . HPI Narrative: HPI: This is a 38-year-old male patient presenting for evaluation of nausea with vomiting. The patient was seen here yesterday for the same symptoms, received number of medications for management of nausea as well as fluids for rehydration. He had a reassuring laboratory workup other than an elevated lactate which resolved with fluid hydration, and had a CT scan of his abdomen and pelvis with no abnormalities. He was discharged home with a refill of his promethazine, which he was using last night and states that it did help his symptoms until this morning when he started vomiting again. His vomiting did n ot respond to 2 doses of promethazine this morning prompting his presentation to care. The patient has not been able to take his home methadone dosing given his illness. Exam: Gen: Awake and alert, appears uncomfortable HEENT: Non-icteric sclera Neck: Supple Lungs: No apparent respiratory distress, normal respiratory effort. Lung sounds clear and equal bilaterally CV: Appears well perfused, heart with regular rate and rhythm, strong distal pulses Abdomen: Non-distended, soft, nontender to palpation without rigidity, rebound, or guarding MSK: Moves upper extremities without limitation Skin: Visualized skin without rashes, cyanosis. Neuro: Wheelchair-bound at baseline, no obvious new focal deficits or facial asymmetry. Speaks in full, clear sentences. Psych: Appropriate for situation. MDM: This is a 38-year-old male patient with a past medical history significant for TBI, opioid dependence on methadone maintenance therapy, presenting for evaluation of nausea with vomiting. My differential includes but is not limited to gastroenteritis, gastritis/PUD, pancreatitis, hepatitis, cholecystitis, bowel obstruction, withdrawal syndrome. Reassuringly, the patient had quite a robust workup yesterday, with normal laboratory studies other than an elevated lactate, likely due to dehydration given its resolution after fluid rehydration. He had a low lipase, and a normal CT scan of his abdomen and pelvis without evidence of obstruction, intra-abdominal infection, etc. Additionally, he had blood cultures that are no growth in the last 24 hours making sepsis or bacteremia less likely. Today, I do not see an indication to repeat advanced imaging given his lack of abdominal pain and his thorough workup yesterday. We will repeat laboratory studies to include CBC, CMP, and lactate. I will provide the patient with a liter of IV fluids and a dose of Zofran for initial management. I contacted [facility] and confirmed the patient's methadone dose at 180 mg as he will not be able to make it to that facility for his dose today. ED Course: I independently interpreted the laboratory studies, which show no significant leukocytosis, anemia, or thrombocytopenia. The chemistry panel is without evidence of electrolyte abnormality, kidney dysfunction, or new liver injury patient does have a baseline transaminitis, mild, that has been demonstrated on prior laboratory studies. Lactate 2.4, likely due to vomiting and dehydration, patient to receive fluid rehydration. The patient had improvement in his symptoms after the above-noted treatments, was able to tolerate oral intake and received his home methadone dose. I did have an extended discussion with the patient regarding his reassuring labs and his imaging yesterday, he states that he often wakes up in the middle of the nig ht and I recommended that he trial a dose of medication at this time so that he does not wake up feeling quite so nauseated. He also needs to follow-up with his primary care provider for reassessment and understands how to use his home medications. He is desiring of discharge to home at this time and I do feel that this is a reasonable given his ongoing hemodynamic stability and his benign abdominal examination. At this time, the patient has had a full medical evaluation and is safe for discharge to home. They are hemodynamically stable, ambulatory, and tolerating PO. They are understanding of the follow-up plan and return precautions. They left our facility without incident. Mariel Bowman MD Related Data Home Medications ?Medication ?Instructions ?Recorded ?Confirmed methadone 10 mg/mL oral concentrate 170 mg PO QDAY 04/29/23 08/22/24 methylphenidate HCl 20 mg tablet 20 mg PO BID 07/20/23 08/22/24 gabapentin 800 mg tablet 800 mg PO TID 06/06/24 08/22/24 levetiracetam 500 mg tablet 500 mg PO BID 06/06/24 08/22/24 rivaroxaban 20 mg tablet (Xarelto) 20 mg PO DAILY 08/07/24 08/22/24 doxycycline hyclate 100 mg capsule 100 mg PO BID 08/09/24 08/22/24 ondansetron 4 mg disintegrating 4 mg PO Q8H PRN 08/09/24 08/22/24 tablet pantoprazole 40 mg tablet,delayed 40 mg PO DAILY 08/09/24 08/22/24 release promethazine 25 mg tablet 25 mg PO QID PRN #30 tabs 08/21/24 08/22/24 Previous Rx's ?Medication ?Instructions ?Recorded promethazine 25 mg tablet 25 mg PO QID PRN #30 tabs 08/21/24 Allergies Allergy/AdvReac Type Severity Reaction Status Date / Time Penicillins Allergy Severe Anaphylaxis Verified 08/22/24 09:08 General Stated Complaint: Nausea/Vomit/Diar SALVADOR: 3 Course Vital Signs Vital signs: Vital Signs Temperature 36.6 C 08/22/24 08:57 Pulse 82 08/22/24 08:57 Respiratory Rate 16 08/22/24 08:57 Blood Pressure 128/73 08/22/24 08:57 Pulse Oximetry 97 08/22/24 08:57 Temperature 36.6 C 08/22/24 09:12 Temperature Source Oral 08/22/24 09:12 Pulse 68 08/22/24 09:12 Respiratory Rate 16 08/22/24 09:12 Blood Pressure 128/73 08/22/24 09:12 Blood Pressure Position Supine 08/22/24 09:12 Pulse Oximetry 94 08/22/24 09:12 Oxygen Delivery Method Room Air 08/22/24 09:12 Oxygen Flow Rate 0 08/22/24 09:12 Pain Level 0 08/22/24 09:12 Medical Decision Making Quality:SDOH Health Related Social Needs: Health related social needs food insecurity (Z59.41) PFSH All Active Problems (Updated 08/22/24 @ 13:58 by Mariel Bowman MD) Nausea and vomiting (Acute) Nausea & vomiting (Acute) Chest pain (Acute) Acute costochondritis (Acute) Moderate opioid dependence on maintenance therapy (Acute) 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
[2024-08-22 10:52] LABS: Abs Immature Grans 0.01 10^3/uL (0.0-0.06); Absolute Basophil Count 0.02 10^3/uL (0.0-0.2); Absolute Eosinophil Count 0.02 10^3/uL (0.0-0.7); Absolute Lymphocyte Count 0.85 10^3/uL (1.2-3.4); Absolute Monocyte Count 0.29 10^3/uL (0.1-0.8); Absolute Neutrophil Count 4.33 10^3/uL (1.2-6.7); Basophils % 0.4 %; Eosinophils % 0.4 %; HCT 43.3 % (40.0-50.0); HGB 13.7 g/dL (13.5-17.5); Immature Grans % 0.2 %; Lymphocytes % 15.4 %; MCH 27.1 pg (27.0-33.0); MCHC 31.6 % (32.0-36.0); MCV 86 fL (80-95); MPV 10.2 fL (8.0-11.0); Monocytes % 5.3 %; Neutrophils % 78.3 %; Platelet Count 276 10^3/uL (130-400); RBC 5.05 10^6/uL (4.36-5.78); RDW 14.5 % (11.8-14.1); RDW-SD 44.9 fL; WBC 5.52 10^3/uL (4.4-10.8)
[2024-08-22 10:58] LABS: Lactate 2.4 mmol/L (<or=2.0)
[2024-08-22] MEDS: Lactated Ringers 1,000 ML 1000 ML IV (11:18)
[2024-08-22] MEDS: Ondansetron 4 MG/2 ML VIAL IVP (11:19)
[2024-08-22 11:20] LABS: ALT 99 U/L (16-63); AST 65 U/L (15-37); Albumin 4.1 g/dL (3.4-5.0); Alkaline Phosphatase 100 U/L (46-116); Anion Gap 12.9 mmol/L (3-11); BUN 10 mg/dL (7-18); Bilirubin, Total 0.3 mg/dL (0.2-1.0); CO2 23.1 mmol/L (21.0-32.0); CREATININE 0.9 mg/dL (0.70-1.30); Calcium 9.9 mg/dL (8.5-10.1); Chloride 102 mmol/L (98-107); Estimated GFR 113.51 (mL/min/1.73m2); Glucose 114 mg/dL (74-106); Magnesium 1.7 mg/dL; Potassium 3.7 mmol/L (3.5-5.1); Sodium 138 mmol/L (136-145); Total Protein 8.1 g/dL (6.4-8.2)
[2024-08-22] MEDS: ACETAMINOPHEN 1,000 MG/100 ML BAG 400 MG IVPB (12:49)
[2024-08-22] MEDS: Methadone Liquid 10 MG/ML 180 MG PO (13:29)
[2024-08-22] MEDS: Ondansetron O.D.T. 4 MG TABEF, 3 TABS/BTL PO (14:02)
== END 2024-08-22 14:10 | disposition home or self-care (01) ==
PROVIDERS: Emergency Provider Emergency Medicine; PCP Family Medicine
DX: R11.10 Vomiting, unspecified (principal); F11.20 Opioid dependence, uncomplicated; F17.210 Nicotine dependence, cigarettes, uncomplicated; Z79.01 Long term (current) use of anticoagulants
CPT/HCPCS: 80053; 96361; 96374; 96375; 99284; 83605; 83735; 85025; J0131; J2405

== ENCOUNTER 2024-08-26 14:50 | Emergency (ER) | payer MEDICAID, SELFPAY ==
[2024-08-26 14:54] VITALS: BP 127/80; PULSE 88; RESP 20; TEMP 36.8; O2SAT 93
[2024-08-26 14:56] VITALS: BP 127/80; PULSE 88; RESP 20; TEMP 36.8; O2SAT 93
--- NOTE | 2024-08-26 15:41 | W.ED.GENAD ---
Discharge Plan Disposition Patient Disposition: Home Condition: Stable Discharge Details Clinical Impression: Dental infection Primary Care Provider: John Brady ED Provider: Ar Newby Home Meds and New Rx's Prescriptions: New clindamycin HCl 150 mg capsule 450 mg PO TID 10 Days Qty: 90 0RF chlorhexidine gluconate 0.12 % mouthwash 15 ml buccal BID Qty: 1893 0RF Rx Instructions: swish and spit twice per day Continued ondansetron 4 mg tablet,disintegrating 4 mg PO Q8H PRN Patient Comments: DISSOLVE 1 TABLET UNDER THE TONGUE EVERY 8 HOURS NEEDED FOR NAUSEA/VOMITING pantoprazole 40 mg tablet,delayed release (DR/EC) 40 mg PO DAILY Patient Comments: TAKE ONE TABLET BY MOUTH EVERY DAY methadone 10 mg/mL concentrate 170 mg PO QDAY Patient Comments: missed a few doses but did take today methylphenidate HCl 20 mg tablet 20 mg PO BID levetiracetam 500 mg tablet 500 mg PO BID Patient Comments: TAKE ONE TABLET BY MOUTH TWICE A DAY gabapentin 800 mg tablet 800 mg PO TID Patient Comments: TAKE ONE TABLET BY MOUTH THREE TIMES A DAY Xarelto 20 mg tablet 20 mg PO DAILY Patient Comments: TAKE ONE TABLET BY MOUTH EVERY EVENING promethazine 25 mg tablet 25 mg PO QID PRNQty: 30 0RF Held doxycycline hyclate 100 mg capsule 100 mg PO BID Hold Instructions: Resume on 09/05/24. hold while on clindamycin Patient Comments: TAKE ONE CAPSULE BY MOUTH TWICE A DAY Discharge Instructions Instructions: Clindamycin (Systemic), Benzocaine, Chlorhexidine Gluconate (Oral), Dental Pain ED Additional Instructions: You were seen in the emergency department for your acute on chronic dental pain, you are already on doxycycline which you will need to stop to treat with clindamycin, this is a lot of antibiotics and you need to find a dentist for definitive care, please take probiotics and eat lots of good probiotic foods like yogurt while on antibiotics. Do not take your antibiotics on an empty stomach as you have been repetitively doing. I have provided you with the HurriCaine gel for acute pain relief, take Tylenol and ibuprofen as needed for pain, have also sent a printed prescription for an antiseptic mouth rinse which will help keep your mouth clean to prevent further infection. Please return for signs of worsening infection like inability to open or close your jaw, excessive drooling, severe vocal changes. Referrals: John Brady [Primary Care Provider] - Discharge Data Discharge Date/Time-TO BE ENTERED AT DEPARTURE: 08/26/24 16:17 HPI General Date/Time Provider Initiated Documentation: 08/26/24 15:22. HPI Narrative: 38 year-old male presents to ED today by POV/wheelchair with his with a chief complaint of acute on chronic dental pain diffusely to his mouth with onset over the past few days. Quality described as tender, swollen, sensitive to heat/cold, throbbing, no radiation to fever, shortness of breath, trismus, excessive drooling, vocal changes, patient endorses that his L upper eyelid is sluggish in an unrelated problem. Severity is described as severe. Palliating factors include nothing specific attempted. Provoking factors include touch, hot and cold foods. Patient not anticoagulated. Related Data Home Medications ?Medication ?Instructions ?Recorded ?Confirmed methadone 10 mg/mL oral concentrate 170 mg PO QDAY 04/29/23 08/26/24 methylphenidate HCl 20 mg tablet 20 mg PO BID 07/20/23 08/26/24 gabapentin 800 mg tablet 800 mg PO TID 06/06/24 08/26/24 levetiracetam 500 mg tablet 500 mg PO BID 06/06/24 08/26/24 rivaroxaban 20 mg tablet (Xarelto) 20 mg PO DAILY 08/07/24 08/26/24 doxycycline hyclate 100 mg capsule 100 mg PO BID 08/09/24 08/26/24 ondansetron 4 mg disintegrating 4 mg PO Q8H PRN 08/09/24 08/26/24 tablet pantoprazole 40 mg tablet,delayed 40 mg PO DAILY 08/09/24 08/26/24 release promethazine 25 mg tablet 25 mg PO QID PRN #30 tabs 08/21/24 08/26/24 chlorhexidine gluconate 0.12 % 15 ml buccal BID #1,893 mL 08/26/24 mouthwash clindamycin HCl 150 mg capsule 450 mg (3 x 150 mg) PO TID dental 08/26/24 infection 10 days #90 caps Previous Rx's ?Medication ?Instructions ?Recorded promethazine 25 mg tablet 25 mg PO QID PRN #30 tabs 08/21/24 chlorhexidine gluconate 0.12 % 15 ml buccal BID #1,893 mL 08/26/24 mouthwash clindamycin HCl 150 mg capsule 450 mg (3 x 150 mg) PO TID dental 08/26/24 infection 10 days #90 caps Allergies Allergy/AdvReac Type Severity Reaction Status Date / Time Penicillins Allergy Severe Anaphylaxis Verified 08/26/24 14:57 General Stated Complaint: DentalOral SALVADOR: 4 Review of Systems All systems reviewed & are unremarkable except as noted in HPI and below Exam Narrative Exam Narrative: GENERAL APPEARANCE: Well-nourished, non-toxic, awake and alert, atraumatic, no acute distress. SKIN: Warm, pink, dry, intact, without rashes/lesions/ulcerations. HEAD: Normocephalic, atraumatic, normal hair distribution for gender/age. EYES: Normal conjunctiva, no exudates on lids/lashes, EOMs intact, no eyelid drooping while on handheld electronic device ENT: Nares patent, no circumoral cyanosis, no facial swelling, uvula midline, no gingival abscess, diffuse poor dentition, no trismus, no vocal changes, managing secretions well NECK: Supple, trachea midline, painless cervical ROM. LUNGS/CHEST: Non-labored respirations, normal A/P diameter, symmetrical expansion, no chest wall deformity HEART (CV/PV): No peripheral edema, no JVD. ABDOMEN: Soft, non-distended, no guarding. MSK: Normal ROM for his baseline, no swelling/deformity to bilateral UEs or LEs, moving all extremities without weakness, no cyanosis, spine midline without tenderness, normal curvature. NEURO: Mental Status AAOx4 - alert to person, place, time, events No facial droop, no forehead involvement. Motor: No focal weakness - strength 5/5 in diffusely, proximal and distal, chronic disability to R leg Sensory: sensation intact to light touch globally. Gait NT. PSYCH: dysthymic, cooperative, unpleasant, appropriate speech Course Vital Signs Vital signs: Vital Signs Temperature 36.8 C 08/26/24 14:54 Pulse 88 08/26/24 14:54 Respiratory Rate 20 08/26/24 14:54 Blood Pressure 127/80 08/26/24 14:54 Pulse Oximetry 93 08/26/24 14:54 Temperature 36.8 C 08/26/24 14:56 Pulse 88 08/26/24 14:56 Respiratory Rate 20 08/26/24 14:56 Blood Pressure 127/80 08/26/24 14:56 Blood Pressure Position Sitting 08/26/24 14:56 Pulse Oximetry 93 08/26/24 14:56 Oxygen Delivery Method Room Air 08/26/24 14:56 Oxygen Flow Rate 0 08/26/24 14:56 Medical Decision Making This dictation utilizes [id number] dictation software and may contain unedited grammatical errors. 38 year-old male presents to ED today by POV/wheelchair with his with a chief complaint of acute on chronic dental pain diffusely to his mouth with onset over the past few days. Quality described as tender, swollen, sensitive to heat/cold, throbbing, no radiation to fever, shortness of breath, trismus, excessive drooling, vocal changes, patient endorses that his L upper eyelid is sluggish in an unrelated problem. Severity is described as severe. Palliating factors include nothing specific attempted. Provoking factors include touch, hot and cold foods. Patients' medical history: TBI, opioid dependence on methadone. Family and social history: Noncontributory. Pertinent exam findings / vital signs include diffuse poor dentition with many cavities, no visible gingival abscess, uvula midline, no trismus, no excessive drooling, EOMs intact, no eyelid drooping while looking at cell phone. Differential / pathologies of concern include dental infection, not deep space infection. Diagnostic studies of: -None. Interventions of: -Rx for clindamycin, clindamycin. ED Course/Assessment/Plan: 38-year-old male well-known to the emergency department presents with acute on chronic dental infection, no trismus or excessive drooling or vocal changes, does not have deep space infection on clinical exam, counseled on use of clindamycin and chlorhexidine mouth rinse and follow-up with dentist as well as follow-up with his primary care and [facility] team for his other complaints, strict return criteria for any signs of deep space infection. Findings not consistent with [employer] EX[employer]/RPA, dental abscess, respiratory distress. Disposition of Dental Infection. Patient verbalized understanding of the plan and return to ED criteria and engaged in shared decision making. Medical Records Medical records reviewed: Yes I reviewed the patient's medical records. 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
[2024-08-26] MEDS: Benzocaine 20% Gel 30 GM JAR MM (15:59)
[2024-08-26 16:10] VITALS: BP 148/78; PULSE 70; RESP 16; O2SAT 99
== END 2024-08-26 16:17 | disposition home or self-care (01) ==
PROVIDERS: Emergency Provider Physician Assistant; PCP Family Medicine
DX: K08.89 Other specified disorders of teeth and supporting structures (principal); K04.7 Periapical abscess without sinus; F17.210 Nicotine dependence, cigarettes, uncomplicated
CPT/HCPCS: 99283

== ENCOUNTER 2024-09-19 05:01 | Emergency (ER) | payer MEDICAID, SELFPAY ==
[2024-09-19] VITALS (7 sets, daily range): BP systolic 120–138; BP diastolic 57–74; PULSE 72–86; RESP 20; O2SAT 97–98
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
[2024-09-19] MEDS: Droperidol 5 MG/2 ML VIAL 2.5 MG IM (05:24)
[2024-09-19] MEDS: Ondansetron 4 MG/2 ML VIAL IM (05:24)
[2024-09-19] MEDS: Ondansetron O.D.T. 4 MG TABEF, 3 TABS/BTL PO (07:19)
== END 2024-09-19 07:19 | disposition home or self-care (01) ==
PROVIDERS: Emergency Provider Student in an Organized Health Care Education/Training Program; PCP Family Medicine
DX: R11.2 Nausea with vomiting, unspecified (principal); Z59.41 Food insecurity
CPT/HCPCS: 99284; 99283; 96374; 96375; 80053; 83690; 85025; 99285; J1790; J2405

== ENCOUNTER 2024-09-19 14:14 | Emergency (ER) | payer MEDICAID, SELFPAY ==
[2024-09-19 14:18] VITALS: BP 124/79; PULSE 81; RESP 18; TEMP 36.8; O2SAT 92
[2024-09-19 14:22] VITALS: BP 124/79; PULSE 81; RESP 18; TEMP 36.8; O2SAT 92
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
[2024-09-19] MEDS: Normal Saline 1,000 ML 1000 ML IV (15:22)
[2024-09-19 15:33] LABS: Abs Immature Grans 0.01 10^3/uL (0.0-0.06); Absolute Basophil Count 0.02 10^3/uL (0.0-0.2); Absolute Eosinophil Count 0.03 10^3/uL (0.0-0.7); Absolute Lymphocyte Count 0.65 10^3/uL (1.2-3.4); Absolute Monocyte Count 0.31 10^3/uL (0.1-0.8); Absolute Neutrophil Count 4.87 10^3/uL (1.2-6.7); Basophils % 0.3 %; Eosinophils % 0.5 %; Immature Grans % 0.2 %; MCH 26.8 pg (27.0-33.0); MCHC 32.5 % (32.0-36.0); MCV 83 fL (80-95); MPV 9.9 fL (8.0-11.0); Monocytes % 5.3 %; Neutrophils % 82.7 %; Platelet Count 249 10^3/uL (130-400); RBC 4.85 10^6/uL (4.36-5.78); RDW 14.4 % (11.8-14.1); RDW-SD 42.4 fL; WBC 5.89 10^3/uL (4.4-10.8)
[2024-09-19 15:56] LABS: Anion Gap 9.2 mmol/L (3-11); BUN 8 mg/dL (7-18); CO2 27.8 mmol/L (21.0-32.0); CREATININE 0.8 mg/dL (0.70-1.30); Calcium 9.4 mg/dL (8.5-10.1); Chloride 103 mmol/L (98-107); Estimated GFR 117.63 (mL/min/1.73m2); Glucose 111 mg/dL (74-106); Sodium 140 mmol/L (136-145)
[2024-09-19 18:09] VITALS: BP 156/77; PULSE 86; TEMP 36.7; O2SAT 95
--- NOTE | 2024-09-19 18:30 | NUR.NOTE ---
Upon being discharged from the department, patient started vomiting. MD was informed, Zofran ODT was offered and droperidol but patient adamantly refused medications. Patient left with via wheelchair
[2024-09-19 18:32] VITALS: BP 156/77; PULSE 86; RESP 18; TEMP 36.7; O2SAT 95
== END 2024-09-19 18:29 | disposition home or self-care (01) ==
PROVIDERS: Emergency Provider Emergency Medicine; PCP Family Medicine
DX: R11.2 Nausea with vomiting, unspecified (principal); S00.03XA Contusion of scalp, initial encounter; X58.XXXA Exposure to other specified factors, initial encounter
CPT/HCPCS: 36415; 80048; 96360; 99283; 85025

== ENCOUNTER 2024-09-20 16:32 | Emergency (ER) | payer MEDICAID, SELFPAY ==
[2024-09-20 16:36] VITALS: BP 100/74; PULSE 86; RESP 16; TEMP 36.3; O2SAT 94
--- NOTE | 2024-09-20 16:45 | DI.RAD_ITS ---
Exam(s) XR CHEST 2V PA LATERAL EXAM: XR CHEST 2V PA LATERAL CLINICAL HISTORY: cough, shortness of breath TECHNIQUE: 2D digital imaging was performed. Two views. COMPARISON: CR XR CHEST 1V IN DI DEPT from 08/21/2024 FINDINGS: HEART: Normal size. Aorta: Not dilated. PULMONARY VASCULATURE: Normal. MEDIASTINUM: Unremarkable. LUNGS: Clear. PLEURAL SPACE: No pleural effusion or pneumothorax. BONE:Unremarkable for age. SOFT TISSUES: Unremarkable. IMPRESSION: No acute abnormality. DATA REPOSITORY: RADIATION DOSE DELIVERED:
--- NOTE | 2024-09-20 16:45 | RT.EKG_ITS ---
APPROVED REPORT Exam: Resting ECG Reason for Exam: chest pain Patient Location: E HR:93 bpm ECG Measurements Heart Rate 93 AXIS TX 160 P 23 QRSd 98 QRS 67 QT 363 T -11 QTc 451 Conclusion Sinus rhythm.. 93 normal axis no stemi
[2024-09-20] MEDS: Albuterol 2.5 MG/3 ML INH SOLN VIAL UPD (17:24)
[2024-09-20] MEDS: Dexamethasone 10 MG/ML VIAL IM (17:24)
[2024-09-20] MEDS: Droperidol 5 MG/2 ML VIAL 2.5 MG IM (17:25)
[2024-09-20 18:11] LABS: COVID-19 PCR Negative (Negative); Influenza A PCR Negative (Negative); Influenza B PCR Negative (Negative); RSV PCR Negative (Negative)
[2024-09-20 18:12] LABS: Source Nasopharynx
[2024-09-20] MEDS: Scopolamine 1 MG/3 DAYS PATCH TD (18:27)
[2024-09-20] MEDS: Albuterol HFA 8 GM 60 PUFF INH IH (18:30)
[2024-09-20 18:33] VITALS: BP 100/74; PULSE 86; RESP 16; TEMP 36.3; O2SAT 94
--- NOTE | 2024-09-20 19:15 | ED.GENADUL_ITS ---
Discharge Plan Disposition Patient Disposition: Home Condition: Stable Discharge Details Clinical Impression: Nausea and vomiting Primary Care Provider: John Brady ED Provider: Mandy Espinosa Home Meds and New Rx's Prescriptions: New dexamethasone 4 mg tablet 4 mg PO DAILY Qty: 3 0RF Continued ondansetron 4 mg tablet,disintegrating 4 mg PO Q8H PRN Patient Comments: DISSOLVE 1 TABLET UNDER THE TONGUE EVERY 8 HOURS NEEDED FOR NAUSEA/VOMITING pantoprazole 40 mg tablet,delayed release (DR/EC) 40 mg PO DAILY Patient Comments: TAKE ONE TABLET BY MOUTH EVERY DAY doxycycline hyclate 100 mg capsule 100 mg PO BID Patient Comments: TAKE ONE CAPSULE BY MOUTH TWICE A DAY methadone 10 mg/mL concentrate 180 mg PO QDAY Patient Comments: took today, but vomited back up methylphenidate HCl 20 mg tablet 20 mg PO BID levetiracetam 500 mg tablet 500 mg PO BID Patient Comments: TAKE ONE TABLET BY MOUTH TWICE A DAY gabapentin 800 mg tablet 800 mg PO TID Patient Comments: TAKE ONE TABLET BY MOUTH THREE TIMES A DAY Xarelto 20 mg tablet 20 mg PO DAILY Patient Comments: TAKE ONE TABLET BY MOUTH EVERY EVENING promethazine 25 mg tablet 25 mg PO QID PRNQty: 30 0RF morphine 15 mg tablet 15 mg PO BID Patient Comments: TAKE ONE TABLET BY MOUTH TWICE A DAY NEEDED FOR PAIN chlorhexidine gluconate 0.12 % mouthwash 15 ml buccal BID PRN Rx Instructions: swish and spit twice per day Discharge Instructions Instructions: Nausea and Vomiting, Adult ED Additional Instructions: You are being prescribed a scopolamine patch, this can stay on for 72 hours and will help with nausea and vomiting, this may make you very tired especially with the dose of methadone you are on, use caution while taking this Try to have regular sheila torri or Gatorade every half an hour and take the Decadron starting tomorrow, you received a dose today Follow-up with your doctor next week for reassessment Saltines or bland foods such as toast if you are able to tolerate regular fluids Please return earlier should you have new or worsening complaints, it is very important that you reinitiate the medications that you stop taking secondary to nausea soon as possible Referrals: John Brady [Primary Care Provider] - 3 days HPI General Date/Time Provider Initiated Documentation: 09/20/24 16:32 . HPI Narrative: 38-year-old male with recurrent nausea and vomiting, third visit in 48 hours, approximately 12 prior visits for similar complaints. Cough for the past couple of days causing emesis. Nauseous without caffeine, mostly retching at home. Unable to hold down methadone and Eliquis due to nausea. No diarrhea or known sick contacts. No new medications. Related Data Home Medications ?Medication ?Instructions ?Recorded ?Confirmed methadone 10 mg/mL oral concentrate 180 mg PO QDAY 04/29/23 09/20/24 methylphenidate HCl 20 mg tablet 20 mg PO BID 07/20/23 09/20/24 gabapentin 800 mg tablet 800 mg PO TID 06/06/24 09/20/24 levetiracetam 500 mg tablet 500 mg PO BID 06/06/24 09/20/24 rivaroxaban 20 mg tablet (Xarelto) 20 mg PO DAILY 08/07/24 09/20/24 doxycycline hyclate 100 mg capsule 100 mg PO BID 08/09/24 09/20/24 ondansetron 4 mg disintegrating 4 mg PO Q8H PRN 08/09/24 09/20/24 tablet pantoprazole 40 mg tablet,delayed 40 mg PO DAILY 08/09/24 09/20/24 release promethazine 25 mg tablet 25 mg PO QID PRN #30 tabs 08/21/24 09/20/24 chlorhexidine gluconate 0.12 % 15 ml buccal BID PRN 09/19/24 09/20/24 mouthwash morphine 15 mg immediate release 15 mg PO BID 09/19/24 09/20/24 tablet dexamethasone 4 mg tablet 4 mg PO DAILY #3 tabs 09/20/24 Previous Rx's ?Medication ?Instructions ?Recorded promethazine 25 mg tablet 25 mg PO QID PRN #30 tabs 08/21/24 dexamethasone 4 mg tablet 4 mg PO DAILY #3 tabs 09/20/24 Allergies Allergy/AdvReac Type Severity Reaction Status Date / Time Penicillins Allergy Severe Anaphylaxis Verified 09/20/24 16:40 General Stated Complaint: Abd Prob SALVADOR: 3 Exam Narrative Exam Narrative: General Appearance: Alert and oriented. Vital signs: Within normal limits. HEENT: Oropharynx pink, uvula midline, nontoxic. Respiratory: Within normal limits. Cardiovascular: Regular cardiac rate rhythm. Gastrointestinal: Abdomen nontender. Skin: Warm and dry, no rash. Neurological: Following all basic commands. Other observations: None. Course Vital Signs Vital signs: Vital Signs Temperature 36.3 C L 09/20/24 16:36 Pulse 86 09/20/24 16:36 Respiratory Rate 16 09/20/24 16:36 Blood Pressure 100/74 09/20/24 16:36 Pulse Oximetry 94 09/20/24 16:36 Temperature 36.3 C L 09/20/24 18:33 Temperature Source Oral 09/20/24 18:33 Pulse 86 09/20/24 18:33 Respiratory Rate 16 09/20/24 18:33 Blood Pressure 100/74 09/20/24 18:33 Blood Pressure Position Sitting 09/20/24 18:33 Pulse Oximetry 94 09/20/24 18:33 Oxygen Delivery Method Room Air 09/20/24 18:33 Oxygen Flow Rate 0 09/20/24 18:33 Lab/Test Results Lab/Test Results: Laboratory Tests Range/Units 09/20/24 17:17 COVID-19 Source Nasopharynx SARS-CoV-2 (PCR) (Negative) Negative Influenza Type A (PCR) (Negative) Negative Influenza Type B (PCR) (Negative) Negative RSV (PCR) (Negative) Negative Medical Decision Making Labs did not show acute metabolic pathology. Initial Assessment: 38-year-old male with complex medical history presenting for recurrent nausea and vomiting, third visit in 48 hours for similar complaint. Labs from last evening did not show acute metabolic pathology. Cough causing emesis, nauseous in absence of caffeine, predominantly ratching at home. Denies diarrhea, sick contacts, new medications. Unable to hold down medications including methadone and Eliquis secondary to nausea. Alert and oriented. Oropharynx pee, uvula midline, nontoxic. Nontender abdominal exam. Cardiac rate rhythm, regular. Following all basic commands. ED Course: - Given 2.5 mg droperidol after EKG review without QTc prolongation - Given Decadron for nausea and cough - Marked improvement in symptoms - Tolerated p.o. challenge well of dinner - No indication to repeat blood work - Vitals stable at discharge home - Given scopolamine patch for 72 hours - Decadron prescription for 3 days - Encouraged cessation of marijuana - Given albuterol inhaler to help with cough - Recheck with primary care physician 24 to 48 hours - Return precautions reviewed - Patient expressed understanding - Approximately 5 minutes spent reviewing labs and prior assessments including recent CT scan from early August of abdomen and pelvis, no acute pathology Final Assessment: Patient presented with recurrent nausea and vomiting, likely cyclic vomiting syndrome. Treatment included droperidol, Decadron, scopolamine patch, and albuterol inhaler. Marked improvement in symptoms noted. No indication to repeat blood work. Vitals stable at discharge. Encouraged cessation of marijuana. Follow-up with primary care physician within 24 to 48 hours. Clinical Impression: - Recurrent nausea and vomiting, likely cyclic vomiting syndrome - Cough Disposition: - Discharge - Follow-Up: Follow up with primary care physician within 24 to 48 hours MDM Components Evaluation: - Number of Differential Diagnoses or Management Options: Cyclic vomiting syndrome - Amount and Complexity of Data Reviewed: Labs, prior assessments, recent CT scan from early August of abdomen and pelvis - Risk of Complication and Morbidity or Mortality: Risk of dehydration and inability to hold down medications Quality:SDOH Health Related Social Needs: Health related social needs food insecurity (Z59.41) PFSH All Active Problems (Updated 09/20/24 @ 18:17 by MICHELINE Saeed) Brief loss of consciousness (Acute) Hematoma of scalp (Acute) Dental infection (Acute) Nausea and vomiting (Acute) Moderate opioid dependence on maintenance therapy (Acute) 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
== END 2024-09-20 18:34 | disposition home or self-care (01) ==
PROVIDERS: Emergency Provider Physician Assistant; PCP Family Medicine
DX: R11.2 Nausea with vomiting, unspecified (principal); R05.9 Cough, unspecified; Z59.41 Food insecurity
CPT/HCPCS: 99285; 99284; 96374; 96375; 87637; 93005; 71046; 93010; J1100; J1790; J7613

== ENCOUNTER 2024-09-22 06:35 | Emergency (ER) | payer MEDICAID, SELFPAY ==
[2024-09-22] VITALS (31 sets, daily range): BP systolic 124–139; BP diastolic 69–82; PULSE 68–89; RESP 8–25; TEMP 36.8; O2SAT 95–98
--- NOTE | 2024-09-22 07:02 | ED.GENADUL_ITS ---
Discharge Plan Disposition Patient Disposition: Home Discharge Details Clinical Impression: Nausea & vomiting Primary Care Provider: John Brady ED Provider: Sandor Chambers Home Meds and New Rx's Prescriptions: Continued ondansetron 4 mg tablet,disintegrating 4 mg PO Q8H PRN Patient Comments: DISSOLVE 1 TABLET UNDER THE TONGUE EVERY 8 HOURS NEEDED FOR NAUSEA/VOMITING pantoprazole 40 mg tablet,delayed release (DR/EC) 40 mg PO DAILY Patient Comments: TAKE ONE TABLET BY MOUTH EVERY DAY doxycycline hyclate 100 mg capsule 100 mg PO BID Patient Comments: TAKE ONE CAPSULE BY MOUTH TWICE A DAY dexamethasone 4 mg tablet 4 mg PO DAILY Qty: 3 0RF methadone 10 mg/mL concentrate 180 mg PO QDAY Patient Comments: took today, but vomited back up methylphenidate HCl 20 mg tablet 20 mg PO BID levetiracetam 500 mg tablet 500 mg PO BID Patient Comments: TAKE ONE TABLET BY MOUTH TWICE A DAY gabapentin 800 mg tablet 800 mg PO TID Patient Comments: TAKE ONE TABLET BY MOUTH THREE TIMES A DAY Xarelto 20 mg tablet 20 mg PO DAILY Patient Comments: TAKE ONE TABLET BY MOUTH EVERY EVENING promethazine 25 mg tablet 25 mg PO QID PRNQty: 30 0RF morphine 15 mg tablet 15 mg PO BID Patient Comments: TAKE ONE TABLET BY MOUTH TWICE A DAY NEEDED FOR PAIN chlorhexidine gluconate 0.12 % mouthwash 15 ml buccal BID PRN Rx Instructions: swish and spit twice per day Discharge Instructions Additional Instructions: You are seen for your nausea and vomiting. Please return to the emergency department as we discussed if you develop abdominal pain that does not stop or if you cannot eat or drink. Your blood work shows that your kidneys are working well. Please follow-up next week with your primary care provider. For your pain please take medications as follows: 1. Take acetaminophen (Tylenol), 1,000 mg (two 500 mg tabs) every 6 hours Discharge Data Discharge Date/Time-TO BE ENTERED AT DEPARTURE: 09/22/24 10:09 HPI General Date/Time Provider Initiated Documentation: 09/22/24 06:39 . HPI Narrative: MDM Patient is an overall well-appearing normothermic and not tachycardic 38-year-old male with nausea and vomiting and methadone use concern for the possibility of electrolyte abnormality for which patient will undergo lab assessment. Soft nontender abdomen so my suspicion is low for intra-abdominal infection. Specifically no right lower quadrant tenderness to suggest appendicitis. Patient is normothermic and has no left lower quadrant tenderness to suggest diverticulitis. Patient has been having bowel movements not suspicious for small bowel obstruction. Patient has a history of complex right lower extremity fracture remotely but has had no sores nor fevers suggest leg infection. No pain on proportion to suggest necrotizing soft tissue infection. No chest pain to suggest ACS so I did not send a troponin. No dental pain contact or contact source of subjective chills. No rash to abdomen to suggest zoster. No pain out of proportion to suggest mesenteric ischemia so I did not send a lactate. Patient's vitals were not consistent with sepsis. Patient does endorse routine marijuana. Certainly given his elevated BMI and his marijuana use there could be a component of cannabinoid hyperemesis syndrome. 8:15 AM He is slightly dehydrated, which may be contributing to his symptoms. The absence of dysuria suggests that an infection is unlikely, and the symptoms are more likely due to dehydration. Intravenous fluids will be administered to address the dehydration using D5 NS. Antiemetic medication will be provided to manage the nausea. Patient had a recent ECG with a QTc within normal limits. Once the nausea is under control, methadone will be administered to prevent withdrawal symptoms. He reports ongoing leg pain and difficulty lifting his right leg, which may be related to a previous accident and metal fixation. There is no current evidence of infection or sores on the leg. He is advised to continue monitoring the pain and follow up with his primary care provider if symptoms persist or worsen. CBC lacks anemia and thrombocytopenia and leukocytosis. Basic metabolic panel showing mild anion gap acidosis but normal bicarbonate and only very mild hyperglycemia??not consistent with DKA. Magnesium within normal limits. 10 AM Patient trialing p.o. Urinalysis showing glucosuria likely secondary to D5NS. He was able to have some sips of his methadone. He was persistently normotensive but not tachycardic. He was not vomiting following small dose of d roperidol. I offered to treat him with his prophylactic home oral antibiotics and his rivaroxaban which he declined. I offered to hospitalize him for ongoing management of his nausea given his multiple ED visits in the past week. He declined. His reports that he has a PCP follow-up appointment on September 30. Urinalysis showing trace blood but nitrite and leuk esterase negative. Microscopy showing 0-2 RBCs per high-powered field. May be secondary to dehydration. No flank pain to suggest hematuria. No ESTELLE on lab work and patient is not markedly hypertensive to suggest acute renal failure. We discussed that he should return to the ED if he developed vomiting that did not stop if he developed fevers or abdominal pain. He understood his return indications and was discharged with an empiric trial of expectant outpatient management. He is not showing signs of opiate withdrawal at the time of discharge. HPI The patient presents for evaluation of nausea, vomiting, and leg pain. History is reported by patient's . He experienced a cessation of vomiting last night, during which he was administered antiemetic medication. His condition appeared stable, with only a persistent cough. However, after consuming water and taking another dose of antiemetic, he began vomiting again within 10 to 20 minutes. He also reports a sensation of needing to urinate but is unable to do so, possibly due to inadequate fluid intake. His urine, when passed, is dark and malodorous. He does not experience any dysuria or pain. He has no sores on his back or buttocks. He requires assistance to move in and out of his chair due to a lack of sensation in his leg. He is currently on doxycycline twice daily but often forgets to take it as it induces vomiting if taken on an empty stomach. He has been using cannabis to stimulate his appetite. He has not had a bowel movement since his last visit. He has been experiencing abdominal discomfort and has requested intravenous antiemetics. He has been coughing, but it is not productive. He has not taken methadone for the past 2 days and may be experiencing withdrawal symptoms. His last dose of methadone was 2 days ago, which he subsequently vomit ed. He has brought his methadone with him today. He has a history of urinary tract infections in his youth. He has been experiencing difficulty lifting his leg, although he can still walk. This issue has persisted since an accident that resulted in the placement of metal hardware in his leg. He has a history of traumatic brain injury and developed a severe yeast infection post-hospitalization due to inadequate hygiene practices. He was prescribed a topical cream for the yeast infection. Exam General: Well-appearing in no acute distress speaking in complete sentences. Head: Normocephalic, atraumatic. Eye: Extraocular eye movements intact. No conjunctival injection. No scleral icterus. Ear, nose, mouth, throat: Grossly normal inspection. Normal voice, handling secretions normally. Neck: Trachea midline. Cardiovascular: Well-perfused distal extremities. Respiratory: Nonlabored respiration. Gastrointestinal: Nondistended abdomen. Soft nontender. : Circumcised penis. No signs of inguinal candidiasis. No signs of Efrain's gangrene. Musculoskeletal: Right lower extremity with slight atrophy compared to the left. No obvious signs of infection. Diffuse tenderness. Right foot warm well- perfused intact pulses. Skin: Normal for age and race, grossly normal temperature and turgor. No acute rash. Neurologic: Alert and appropriate, no apparent acute deficits. Psychiatric: Mood and manner are appropriate. Grooming and personal hygiene are appropriate. Related Data Home Medications ?Medication ?Instructions ?Recorded ?Confirmed methadone 10 mg/mL oral concentrate 180 mg PO QDAY 04/29/23 09/22/24 methylphenidate HCl 20 mg tablet 20 mg PO BID 07/20/23 09/22/24 gabapentin 800 mg tablet 800 mg PO TID 06/06/24 09/22/24 levetiracetam 500 mg tablet 500 mg PO BID 06/06/24 09/22/24 rivaroxaban 20 mg tablet (Xarelto) 20 mg PO DAILY 08/07/24 09/22/24 doxycycline hyclate 100 mg capsule 100 mg PO BID 08/09/24 09/22/24 ondansetron 4 mg disintegrating 4 mg PO Q8H PRN 08/09/24 09/22/24 tablet pantoprazole 40 mg tablet,delayed 40 mg PO DAILY 08/09/24 09/22/24 release promethazine 25 mg tablet 25 mg PO QID PRN #30 tabs 08/21/24 09/22/24 chlorhexidine gluconate 0.12 % 15 ml buccal BID PRN 09/19/24 09/22/24 mouthwash morphine 15 mg immediate release 15 mg PO BID 09/19/24 09/22/24 tablet dexamethasone 4 mg tablet 4 mg PO DAILY #3 tabs 09/20/24 09/22/24 Previous Rx's ?Medication ?Instructions ?Recorded promethazine 25 mg tablet 25 mg PO QID PRN #30 tabs 08/21/24 dexamethasone 4 mg tablet 4 mg PO DAILY #3 tabs 09/20/24 Allergies Allergy/AdvReac Type Severity Reaction Status Date / Time Penicillins Allergy Severe Anaphylaxis Verified 09/22/24 06:43 General Stated Complaint: Nausea/Vomit/Diar SALVADOR: 3 Course Vital Signs Vital signs: Vital Signs Temperature 36.8 C 09/22/24 06:38 Pulse 74 09/22/24 06:38 Respiratory Rate 18 09/22/24 06:38 Blood Pressure 129/78 09/22/24 06:38 Pulse Oximetry 97 09/22/24 06:38 Temperature 36.8 C 09/22/24 06:38 Temperature Source Temporal Artery Scan 09/22/24 06:38 Pulse 74 09/22/24 06:38 Respiratory Rate 18 09/22/24 06:38 Blood Pressure 129/78 09/22/24 06:38 Blood Pressure Position Sitting 09/22/24 06:38 Pulse Oximetry 97 09/22/24 06:38 Oxygen Delivery Method Room Air 09/22/24 06:38 Oxygen Flow Rate 0 09/22/24 06:38 Pain Level 0 09/22/24 06:38 Medical Decision Making Quality:SDOH Health Related Social Needs: Health related social needs food insecurity (Z59.41) PFSH All Active Problems (Updated 09/22/24 @ 08:39 by Sandor Chambers MD) Nausea & vomiting (Acute) Brief loss of consciousness (Acute) Hematoma of scalp (Acute) Dental infection (Acute) Moderate opioid dependence on maintenance therapy (Acute) 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
[2024-09-22 07:35] LABS: Abs Immature Grans 0.03 10^3/uL (0.0-0.06); Absolute Basophil Count 0.01 10^3/uL (0.0-0.2); Absolute Eosinophil Count 0.01 10^3/uL (0.0-0.7); Absolute Lymphocyte Count 0.78 10^3/uL (1.2-3.4); Absolute Monocyte Count 0.29 10^3/uL (0.1-0.8); Absolute Neutrophil Count 5.54 10^3/uL (1.2-6.7); Basophils % 0.2 %; Eosinophils % 0.2 %; HCT 41.4 % (40.0-50.0); HGB 13.8 g/dL (13.5-17.5); Immature Grans % 0.5 %; Lymphocytes % 11.7 %; MCH 26.6 pg (27.0-33.0); MCHC 33.3 % (32.0-36.0); MCV 80 fL (80-95); MPV 9.7 fL (8.0-11.0); Monocytes % 4.4 %; Platelet Count 327 10^3/uL (130-400); RBC 5.19 10^6/uL (4.36-5.78); RDW 14.6 % (11.8-14.1); RDW-SD 41.7 fL; WBC 6.66 10^3/uL (4.4-10.8)
[2024-09-22] MEDS: DEXTROSE 5%-0.9% SALINE 1,000 ML 1000 ML IV (07:40)
[2024-09-22 07:47] LABS: Anion Gap 12.3 mmol/L (3-11); BUN 15 mg/dL (7-18); CO2 22.7 mmol/L (21.0-32.0); CREATININE 0.8 mg/dL (0.70-1.30); Calcium 9.7 mg/dL (8.5-10.1); Chloride 101 mmol/L (98-107); Estimated GFR 117.63 (mL/min/1.73m2); Glucose 127 mg/dL (74-106); Magnesium 1.9 mg/dL (1.8-2.4); Potassium 3.5 mmol/L (3.5-5.1); Sodium 136 mmol/L (136-145)
[2024-09-22] MEDS: Droperidol 5 MG/2 ML VIAL 1.25 MG IVP (08:11)
[2024-09-22 09:38] LABS: Bilirubin Negative (Negative); Blood Trace-intact (Negative); Clarity Clear (Clear); Glucose 250 mg/dL (Negative); Ketones Negative (Negative); Leukocyte Esterase Negative (Negative); Nitrite Negative (Negative); Urobilinogen 0.2 mg/dL (Up to 0.2)
[2024-09-22 09:48] LABS: Bacteria Rare HPF (Negative); C & S Indicated? No; Casts Negative LPF (Negative); Crystals Negative HPF (Negative); Epithelial Cells Rare HPF (Negative); Mucus Trace (Negative); RBC 0-2 HPF (0-2); WBC 0-2 HPF (0-5)
== END 2024-09-22 10:09 | disposition home or self-care (01) ==
PROVIDERS: Emergency Provider Emergency Medicine; PCP Family Medicine
DX: R11.2 Nausea with vomiting, unspecified (principal); M79.604 Pain in right leg; F11.20 Opioid dependence, uncomplicated; Z79.891 Long term (current) use of opiate analgesic
CPT/HCPCS: 99283; 99284; 36415; 96374; 80048; 96361; 81003; 81015; 83735; 85025; J1790; J7042

== ENCOUNTER 2024-12-25 01:48 | Emergency (ER) | payer MEDICAID, SELFPAY ==
[2024-12-25 01:50] VITALS: BP 141/82; PULSE 61; RESP 18; TEMP 36.4; O2SAT 96
[2024-12-25 02:01] VITALS: BP 141/82; PULSE 61; RESP 18; TEMP 36.4; O2SAT 96
--- NOTE | 2024-12-25 02:10 | W.ED.GENAD ---
Discharge Plan Disposition Patient Disposition: Home Condition: Improving Discharge Details Clinical Impression: Nausea and vomiting Primary Care Provider: John Brady ED Provider: John Mosquera Meds and New Rx's Prescriptions: Continued ondansetron 4 mg tablet,disintegrating 4 mg PO Q8H PRN Patient Comments: DISSOLVE 1 TABLET UNDER THE TONGUE EVERY 8 HOURS NEEDED FOR NAUSEA/VOMITING pantoprazole 40 mg tablet,delayed release (DR/EC) 40 mg PO DAILY Patient Comments: TAKE ONE TABLET BY MOUTH EVERY DAY doxycycline hyclate 100 mg capsule 100 mg PO BID Patient Comments: TAKE ONE CAPSULE BY MOUTH TWICE A DAY methadone 10 mg/mL concentrate 180 mg PO QDAY Patient Comments: took today, but vomited back up methylphenidate HCl 20 mg tablet 20 mg PO BID levetiracetam 500 mg tablet 500 mg PO BID Patient Comments: TAKE ONE TABLET BY MOUTH TWICE A DAY gabapentin 800 mg tablet 800 mg PO TID Patient Comments: TAKE ONE TABLET BY MOUTH THREE TIMES A DAY Xarelto 20 mg tablet 20 mg PO DAILY Patient Comments: TAKE ONE TABLET BY MOUTH EVERY EVENING promethazine 25 mg tablet 25 mg PO QID PRNQty: 30 0RF chlorhexidine gluconate 0.12 % mouthwash 15 ml buccal BID PRN Rx Instructions: swish and spit twice per day oxycodone-acetaminophen 10-650 mg tablet 10 tab PO BID PRN Discharge Instructions Additional Instructions: You were seen for recurrent/persistent vomiting. You responded to fluids and medication here. Labs are reassuring. Clear liquid/bland diet for next day or two. Use medications previously prescribed to help control symptoms. Follow up with PCP. Return to ED for fever, vomiting of blood, persistent/recurrent vomiting, abdominal pain, other concerns. Referrals: John Brady [Primary Care Provider, Medicine] HPI General Mode of arrival: wheelchair. Date/Time Provider Initiated Documentation: 12/25/24 01:50. Limitations to Documentation: no limitations. Information obtained by: patient, family, RN notes reviewed and old records reviewed. HPI Narrative: Patient presents to ED with complaint of persistent nausea and vomiting not responding to home medications over the last 24 hours. Patient has history of chronic vomiting and diarrhea. He can usually been maintained on promethazine and ondansetron at home. However, he does have periods of time where he is unable to control his symptoms despite medications. Was last in this ED in September for similar presentation. Denies any hematemesis. Denies any fever. Denies any abdominal pain. Has not been able to keep his medications or solids/liquids down prompting visit to ED early this morning. Related Data Home Medications ?Medication ?Instructions ?Recorded ?Confirmed methadone 10 mg/mL oral concentrate 180 mg PO QDAY 04/29/23 12/25/24 methylphenidate HCl 20 mg tablet 20 mg PO BID 07/20/23 12/25/24 gabapentin 800 mg tablet 800 mg PO TID 06/06/24 12/25/24 levetiracetam 500 mg tablet 500 mg PO BID 06/06/24 12/25/24 rivaroxaban 20 mg tablet (Xarelto) 20 mg PO DAILY 08/07/24 12/25/24 doxycycline hyclate 100 mg capsule 100 mg PO BID 08/09/24 12/25/24 ondansetron 4 mg disintegrating 4 mg PO Q8H PRN 08/09/24 12/25/24 tablet pantoprazole 40 mg tablet,delayed 40 mg PO DAILY 08/09/24 12/25/24 release promethazine 25 mg tablet 25 mg PO QID PRN #30 tabs 08/21/24 12/25/24 chlorhexidine gluconate 0.12 % 15 ml buccal BID PRN 09/19/24 12/25/24 mouthwash oxycodone-acetaminophen 10 mg-650 10 tab PO BID PRN 12/25/24 12/25/24 mg tablet Previous Rx's ?Medication ?Instructions ?Recorded promethazine 25 mg tablet 25 mg PO QID PRN #30 tabs 08/21/24 Allergies Allergy/AdvReac Type Severity Reaction Status Date / Time Penicillins Allergy Severe Anaphylaxis Verified 12/25/24 01:57 venom-honey bee Allergy Severe Anaphylaxis Verified 12/25/24 01:57 General Stated Complaint: Nausea/Vomit/Diar SALVADOR: 3 Exam Narrative Exam Narrative: Const: WDWN male in NAD. VS per triage. HEENT: NC/AT. Normal facial exam. Neck: Supple. Trachea midline. Lungs: Normal respiratory effort. Cor: RRR, good radial pulse. GI: Soft/ND/NT. Neuro: A+O x 3. Normal speech, mentation. Course Vital Signs Vital signs: Vital Signs Temperature 97.5 F L 12/25/24 01:50 Pulse 61 12/25/24 01:50 Respiratory Rate 18 12/25/24 01:50 Blood Pressure 141/82 H 12/25/24 01:50 Pulse Oximetry 96 12/25/24 01:50 Temperature 97.5 F L 12/25/24 01:50 Temperature Source Oral 12/25/24 01:50 Pulse 61 12/25/24 01:50 Respiratory Rate 18 12/25/24 01:50 Blood Pressure 141/82 H 12/25/24 01:50 Pulse Oximetry 96 12/25/24 01:50 Oxygen Delivery Method Room Air 12/25/24 01:50 Oxygen Flow Rate 0 12/25/24 01:50 Pain Level 6 12/25/24 01:50 Comment stomach and throat 12/25/24 01:50 Medical Decision Making Patient presenting to the ED with persistent nausea and vomiting which is a chronic problem. Has not been able to keep oral medications down and over the last 24 hours has been having difficulty with solids and liquids. He does not have abdominal pain. His abdominal exam is normal. He is afebrile and vital signs otherwise look good. Will plan IV with fluids and antiemetics, check laboratory studies especially the electrolytes. Labs are unremarkable including a normal white count, liver function, lipase, electrolytes. Patient does report feeling better. Does not want to try anything orally here. Has plenty of medication at home. Will finish fluids and plan discharge. Follow up with PCP. Return precautions provided. Medical Records Medical records reviewed: Yes I reviewed the patient's medical records. Lab Data Lab results reviewed: Yes I reviewed the patient's lab results. Lab results narrative: see MDM Quality:SDOH Health Related Social Needs: Health related social needs food insecurity PFSH All Active Problems (Updated 12/25/24 @ 04:25 by John Mosquera MD) Nausea and vomiting (Acute) Moderate opioid dependence on maintenance therapy (Acute) Medical History Open fracture of femur with delayed healing TBI (traumatic brain injury) Social History Smoking/Tobacco Use Status: Current every day Tobacco Type: cigarettes Years smoked: 24 Smoking risk assessment performed?: Yes Alcohol Intake: former Drug use: Daily Substance use type: marijuana Details: methadone Housing: other Do you feel safe at home: Yes Do you feel safe in your relationship?: Yes Additional Social history: homeless and moving from place to place
[2024-12-25 02:19] VITALS: BP 128/65
[2024-12-25] MEDS: Ondansetron 4 MG/2 ML VIAL IVP (02:45)
[2024-12-25] MEDS: Famotidine 20 MG/2 ML VIAL IVP (02:45)
[2024-12-25] MEDS: Prochlorperazine 10 MG/2 ML VIAL IVP (02:46)
[2024-12-25 02:48] LABS: BE (Venous) 2 mmol/L (-2-3); HCO3 (Venous) 27 mmol/L (23-28); O2 Sat (Venous) 53 %; TCO2 (Venous) 24 mmol/L (24-29); pCO2 (Venous) 41 mmHg (41-51); pO2 (Venous) 27 mmHg
[2024-12-25] MEDS: Lactated Ringers 1,000 ML 1000 ML IV (02:54)
[2024-12-25 03:10] LABS: Lipase 18 U/L (<78)
[2024-12-25 03:12] LABS: ALT 37 U/L (16-63); AST 29 U/L (15-37); Albumin 3.9 g/dL (3.4-5.0); Alkaline Phosphatase 102 U/L (46-116); Anion Gap 8.5 mmol/L (3-11); BUN 10 mg/dL (7-18); Bilirubin, Total 0.4 mg/dL (0.2-1.0); CO2 27.5 mmol/L (21.0-32.0); Calcium 9.6 mg/dL (8.5-10.1); Chloride 103 mmol/L (98-107); Estimated GFR 112.81 (mL/min/1.73m2); Glucose 112 mg/dL (74-106); Magnesium 2.0 mg/dL (1.8-2.4); Potassium 4.1 mmol/L (3.5-5.1); Sodium 139 mmol/L (136-145); Total Protein 7.8 g/dL (6.4-8.2)
[2024-12-25 03:17] LABS: Abs Immature Grans 0.02 10^3/uL (0.0-0.06); HCT 43.4 % (40.0-50.0); HGB 14.3 g/dL (13.5-17.5); Immature Grans % 0.3 %; MCH 27.1 pg (27.0-33.0); MCHC 32.9 % (32.0-36.0); MCV 82 fL (80-95); MPV 10.2 fL (8.0-11.0); Platelet Count 297 10^3/uL (130-400); RBC 5.28 10^6/uL (4.36-5.78); RDW 14.0 % (11.8-14.1); RDW-SD 41.8 fL; WBC 7.27 10^3/uL (4.4-10.8)
[2024-12-25 04:38] VITALS: BP 146/86; PULSE 67; RESP 16; TEMP 36.6; O2SAT 97
== END 2024-12-25 04:39 | disposition home or self-care (01) ==
PROVIDERS: Emergency Provider Emergency Medicine; PCP Family Medicine
DX: R11.2 Nausea with vomiting, unspecified (principal)
CPT/HCPCS: 80053; 82805; 83690; 96361; 96374; 96375; 99284; 83735; 85025; 99283; J0780; J2405

== ENCOUNTER 2025-01-19 18:38 | Emergency (ER) | payer MEDICAID, SELFPAY ==
--- NOTE | 2025-01-19 18:45 | RT.EKG_ITS ---
APPROVED REPORT Exam: Resting ECG Reason for Exam: check qtc Patient Location: E HR:65 bpm ECG Measurements Heart Rate 65 AXIS IA 169 P 31 QRSd 107 QRS 36 QT 604 T 48 QTc 628 Conclusion Sinus rhythm...normal P axis, V-rate 60- 99 Nonspecific T abnrm, anterolateral leads...T <-0.10mV, I aVL V2-V6 Prolonged QT interval...QTc >500mS
[2025-01-19 18:49] VITALS: BP 120/86; PULSE 87; RESP 18; TEMP 36.8; O2SAT 98
[2025-01-19 18:56] VITALS: BP 120/86; PULSE 87; RESP 18; TEMP 36.9; O2SAT 98
--- NOTE | 2025-01-19 19:18 | W.ED.GENAD ---
Discharge Plan Disposition Patient Disposition: Home Condition: Stable Discharge Details Clinical Impression: N&V (nausea and vomiting) Primary Care Provider: John Brady ED Provider: Heath Travis Home Meds and New Rx's Prescriptions: New promethazine 25 mg tablet 25 mg PO TID PRN (Reason: nausea and vomiting) Qty: 30 0RF Continued pantoprazole 40 mg tablet,delayed release (DR/EC) 40 mg PO DAILY Patient Comments: TAKE ONE TABLET BY MOUTH EVERY DAY methadone 10 mg/mL concentrate 180 mg PO QDAY Patient Comments: took today, but vomited back up levetiracetam 500 mg tablet 500 mg PO BID Patient Comments: TAKE ONE TABLET BY MOUTH TWICE A DAY gabapentin 800 mg tablet 800 mg PO TID Patient Comments: TAKE ONE TABLET BY MOUTH THREE TIMES A DAY promethazine 25 mg tablet 25 mg PO QID PRNQty: 30 0RF chlorhexidine gluconate 0.12 % mouthwash 15 ml buccal BID PRN Rx Instructions: swish and spit twice per day Discontinued ondansetron 4 mg tablet,disintegrating 4 mg PO Q8H PRN Patient Comments: DISSOLVE 1 TABLET UNDER THE TONGUE EVERY 8 HOURS NEEDED FOR NAUSEA/VOMITING No Action doxycycline hyclate 100 mg capsule 100 mg PO BID Patient Comments: TAKE ONE CAPSULE BY MOUTH TWICE A DAY methylphenidate HCl 20 mg tablet 20 mg PO BID Xarelto 20 mg tablet 20 mg PO DAILY Patient Comments: TAKE ONE TABLET BY MOUTH EVERY EVENING oxycodone-acetaminophen 10-650 mg tablet 10 tab PO BID PRN Discharge Instructions Additional Instructions: Your blood work did not show any concerning findings at this time. Follow-up with your primary care provider if your symptoms continue this week. If you feel more ill or have new symptoms such as high fevers return to the emergency department for reevaluation. HPI General Mode of arrival: ambulatory. Date/Time Provider Initiated Documentation: 01/19/25 18:41. Limitations to Documentation: no limitations. Information obtained by: patient. History of Present Illness 39 year old M presents to the emergency department with the chief complaint of n/v, described as moderate, Patient started experiencing this day(s) (1) and it has been constant. No relieving factors improve symptom(s), No exacerbating factors reported . Patient notes no other symptoms.. Patient did receive the following treatments prior to arrival, none Related Data Home Medications ?Medication ?Instructions ?Recorded ?Confirmed methadone 10 mg/mL oral concentrate 180 mg PO QDAY 04/29/23 01/19/25 methylphenidate HCl 20 mg tablet 20 mg PO BID 07/20/23 01/19/25 gabapentin 800 mg tablet 800 mg PO TID 06/06/24 01/19/25 levetiracetam 500 mg tablet 500 mg PO BID 06/06/24 01/19/25 rivaroxaban 20 mg tablet (Xarelto) 20 mg PO DAILY 08/07/24 01/19/25 doxycycline hyclate 100 mg capsule 100 mg PO BID 08/09/24 01/19/25 pantoprazole 40 mg tablet,delayed 40 mg PO DAILY 08/09/24 01/19/25 release promethazine 25 mg tablet 25 mg PO QID PRN #30 tabs 08/21/24 01/19/25 chlorhexidine gluconate 0.12 % 15 ml buccal BID PRN 09/19/24 01/19/25 mouthwash oxycodone-acetaminophen 10 mg-650 10 tab PO BID PRN 12/25/24 01/19/25 mg tablet promethazine 25 mg tablet 25 mg PO TID PRN nausea and 01/19/25 vomiting #30 tabs Previous Rx's ?Medication ?Instructions ?Recorded promethazine 25 mg tablet 25 mg PO QID PRN #30 tabs 08/21/24 promethazine 25 mg tablet 25 mg PO TID PRN nausea and 01/19/25 vomiting #30 tabs Allergies Allergy/AdvReac Type Severity Reaction Status Date / Time Penicillins Allergy Severe Anaphylaxis Verified 01/19/25 18:55 venom-honey bee Allergy Severe Anaphylaxis Verified 01/19/25 18:55 General Stated Complaint: Nausea/Vomit/Diar SALVADOR: 3 Review of Systems All systems reviewed & are unremarkable except as noted in HPI and below Constitutional Constitutional: Denies chills, Denies fever(s) and Denies weakness Cardiovascular Cardiovascular: Denies chest pain and Denies dyspnea Respiratory Respiratory: Denies cough and Denies dyspnea Gastrointestinal Gastrointestinal: Denies abdominal pain, Reports nausea and Reports vomiting Neurologic Neurologic: Denies weakness Exam Const General: no acute distress Orientation: alert HENMT Head: normal to inspection Ears: external ears normal General nose exam: external nose normal Mouth: moist mucous membranes Eyes General: appearance normal, both eyes and all related structures Neck Neck: normal visual inspection Resp Effort & Inspection: normal respiratory effort and able to speak in complete sentences Cardio Rate: regular rate GI Palpation: soft and nontender Skin General skin exam: no rashes or lesions noted Neuro General: patient alert and patient oriented x3 Extrem General: normal to inspection Psych Mental Status: mental status grossly normal Course Vital Signs Vital signs: Vital Signs Temperature 36.8 C 01/19/25 18:49 Pulse 87 01/19/25 18:49 Respiratory Rate 18 01/19/25 18:49 Blood Pressure 120/86 01/19/25 18:49 Pulse Oximetry 98 01/19/25 18:49 Temperature 36.9 C 01/19/25 18:56 Temperature Source Oral 01/19/25 18:56 Pulse 87 01/19/25 18:56 Respiratory Rate 18 01/19/25 18:56 Blood Pressure 120/86 01/19/25 18:56 Pulse Oximetry 98 01/19/25 18:56 Oxygen Delivery Method Room Air 01/19/25 18:56 Oxygen Flow Rate 0 01/19/25 18:49 Comment Discomfort but no pain 01/19/25 18:49 Medical Decision Making 39-year-old male with a history of cyclic vomiting syndrome, on methadone, who comes in with nausea vomiting throughout the day today. He ran out of his p.o. nausea medications that he has at home. Denies any chest pain or severe abdominal pain. He is stable on arrival, abdomen is soft and nondistended without any tenderness. Suspect cyclic vomiting syndrome. Given lack of abdominal tenderness I doubt surgical pathology and do not imaging of his abdomen is indicated. Will check CBC CMP and lipase and treat symptoms with IV fluids and Compazine. I obtained an EKG to check his QT which is prolonged so we will avoid Zofran and droperidol. Labs unremarkable and patient feels better, still has no abdominal tenderness. He is stable for discharge and will follow-up with his PCP, return precautions given Differential Diagnosis Differential Diagnosis: cyclic vomiting, electrolyte abnormality ECG Data Attestation: I personally reviewed and interpreted this ECG (s) as follows: Prior ECG tracings: available for review Interpretation: sinus rate of 65 qtc 626 no stemi Quality:SDOH Health Related Social Needs: Health related social needs food insecurity PFSH All Active Problems (Updated 01/19/25 @ 20:29 by Heath Travis MD) N&V (nausea and vomiting) (Acute) Nausea and vomiting (Acute) Moderate opioid dependence on maintenance therapy (Acute) Medical History Open fracture of femur with delayed healing TBI (traumatic brain injury) Social History Smoking/Tobacco Use Status: Current every day Tobacco Type: cigarettes Years smoked: 24 Smoking risk assessment performed?: Yes Alcohol Intake: former Drug use: Daily Substance use type: marijuana Details: methadone Housing: other Do you feel safe at home: Yes Do you feel safe in your relationship?: Yes Additional Social history: homeless and moving from place to place
[2025-01-19] MEDS: Normal Saline 1,000 ML 1000 ML IV (19:28)
[2025-01-19] MEDS: Prochlorperazine 10 MG/2 ML VIAL IVP (19:29)
[2025-01-19 19:30] LABS: Abs Immature Grans 0.02 10^3/uL (0.0-0.06); HCT 44.9 % (40.0-50.0); HGB 15.1 g/dL (13.5-17.5); Immature Grans % 0.3 %; MCH 26.5 pg (27.0-33.0); MCHC 33.6 % (32.0-36.0); MCV 79 fL (80-95); MPV 10.1 fL (8.0-11.0); Platelet Count 288 10^3/uL (130-400); RBC 5.70 10^6/uL (4.36-5.78); RDW 13.6 % (11.8-14.1); RDW-SD 38.5 fL; WBC 7.78 10^3/uL (4.4-10.8)
[2025-01-19 19:53] LABS: ALT 36 U/L (16-63); AST 21 U/L (15-37); Albumin 4.3 g/dL (3.4-5.0); Alkaline Phosphatase 115 U/L (46-116); Anion Gap 14.1 mmol/L (3-11); BUN 9 mg/dL (7-18); Bilirubin, Total 0.5 mg/dL (0.2-1.0); CO2 22.9 mmol/L (21.0-32.0); Calcium 10.0 mg/dL (8.5-10.1); Chloride 101 mmol/L (98-107); Estimated GFR 112.81 (mL/min/1.73m2); Glucose 121 mg/dL (74-106); Lipase 19 U/L (<78); Magnesium 1.9 mg/dL (1.8-2.4); Potassium 3.7 mmol/L (3.5-5.1); Sodium 138 mmol/L (136-145); Total Protein 8.3 g/dL (6.4-8.2)
== END 2025-01-19 20:42 | disposition home or self-care (01) ==
PROVIDERS: Emergency Provider Emergency Medicine; PCP Family Medicine
DX: R11.2 Nausea with vomiting, unspecified (principal); Z59.41 Food insecurity
CPT/HCPCS: 80053; 83690; 93005; 96361; 96374; 99284; 83735; 85025; 93010; J0780

== ENCOUNTER 2025-02-13 01:22 | Emergency (ER) | payer MEDICAID, SELFPAY ==
[2025-02-13 01:23] VITALS: BP 118/76; PULSE 70; RESP 18; TEMP 36.4; O2SAT 99
--- NOTE | 2025-02-13 01:27 | W.ED.GENAD ---
Discharge Plan Disposition Patient Disposition: Home Condition: Good Discharge Details Clinical Impression: Nausea, Diarrhea Primary Care Provider: John Brady ED Provider: John Mosquera Meds and New Rx's Prescriptions: Continued pantoprazole 40 mg tablet,delayed release (DR/EC) 40 mg PO DAILY Patient Comments: TAKE ONE TABLET BY MOUTH EVERY DAY doxycycline hyclate 100 mg capsule 100 mg PO BID Patient Comments: TAKE ONE CAPSULE BY MOUTH TWICE A DAY methadone 10 mg/mL concentrate 180 mg PO QDAY Patient Comments: took today, but vomited back up methylphenidate HCl 20 mg tablet 20 mg PO BID levetiracetam 500 mg tablet 500 mg PO BID Patient Comments: TAKE ONE TABLET BY MOUTH TWICE A DAY gabapentin 800 mg tablet 800 mg PO TID Patient Comments: TAKE ONE TABLET BY MOUTH THREE TIMES A DAY Xarelto 20 mg tablet 20 mg PO DAILY Patient Comments: TAKE ONE TABLET BY MOUTH EVERY EVENING promethazine 25 mg tablet 25 mg PO QID PRNQty: 30 0RF chlorhexidine gluconate 0.12 % mouthwash 15 ml buccal BID PRN Rx Instructions: swish and spit twice per day oxycodone-acetaminophen 10-650 mg tablet 10 tab PO BID PRN Discharge Instructions Additional Instructions: You have been given 3 promethazine tablets for use today. Contact primary care for refill of medications if necessary. Return to ED for fever, persistent vomiting, abdominal pain, bloody diarrhea HPI General Mode of arrival: ambulatory. Date/Time Provider Initiated Documentation: 02/13/25 01:27. Limitations to Documentation: no limitations. Information obtained by: patient, family, RN notes reviewed and old records reviewed. HPI Narrative: Patient presents to ED with complaint of nausea. Patient has a history of chronic nausea/vomiting and sometimes diarrhea. Currently no access to his antiemetic which typically helps control his nausea. They think it got accidentally moved to the storage unit and they cannot access it at this time. He is not having any abdominal pain or fever. Typically if he is able to take his promethazine he does well. Presented to ED for same in hopes of averting vomiting and diarrhea. Related Data Home Medications ?Medication ?Instructions ?Recorded ?Confirmed methadone 10 mg/mL oral concentrate 180 mg PO QDAY 04/29/23 02/13/25 methylphenidate HCl 20 mg tablet 20 mg PO BID 07/20/23 02/13/25 gabapentin 800 mg tablet 800 mg PO TID 06/06/24 02/13/25 levetiracetam 500 mg tablet 500 mg PO BID 06/06/24 02/13/25 rivaroxaban 20 mg tablet (Xarelto) 20 mg PO DAILY 08/07/24 02/13/25 doxycycline hyclate 100 mg capsule 100 mg PO BID 08/09/24 02/13/25 pantoprazole 40 mg tablet,delayed 40 mg PO DAILY 08/09/24 02/13/25 release promethazine 25 mg tablet 25 mg PO QID PRN #30 tabs 08/21/24 02/13/25 chlorhexidine gluconate 0.12 % 15 ml buccal BID PRN 09/19/24 02/13/25 mouthwash oxycodone-acetaminophen 10 mg-650 10 tab PO BID PRN 12/25/24 02/13/25 mg tablet Previous Rx's ?Medication ?Instructions ?Recorded promethazine 25 mg tablet 25 mg PO QID PRN #30 tabs 08/21/24 Allergies Allergy/AdvReac Type Severity Reaction Status Date / Time Penicillins Allergy Severe Anaphylaxis Verified 02/13/25 01:30 venom-honey bee Allergy Severe Anaphylaxis Verified 02/13/25 01:30 General SALVADOR: 3 Exam Narrative Exam Narrative: Const: WDWN male in NAD. VS per triage. HEENT: NC/AT. Normal facial exam. Neck: Supple. Trachea midline. Lungs: Normal respiratory effort. Cor: RRR without murmur. GI: Soft/ND/NT. Neuro: A+O x 3. Normal speech, mentation. Cranial nerves II - XII grossly intact. No gross motor or sensory deficit. Medical Decision Making Patient presenting to ED with nausea requesting oral antiemetic which he typically has at home but inadvertently moved to storage unit which he cannot access this evening. Denies any abdominal pain. Has not had any vomiting but is trying to avert that from happening. He will be given 25 mg dose of oral promethazine and reevaluated. 02:45 - Patient is feeling better and tolerating liquids. Requesting something for diarrhea. Ordered for Imodium 2 mg. Will be given to go bottle of promethazine 25 mg tablets dispense 3. He will contact primary care if he requires any more refills on his medication. Return precautions provided. Quality:Community Health Related Social Needs: Health related social needs food insecurity PFSH All Active Problems (Updated 02/13/25 @ 02:42 by John Mosquera MD) Diarrhea (Acute) Nausea (Acute) N&V (nausea and vomiting) (Acute) Moderate opioid dependence on maintenance therapy (Acute) Medical History Open fracture of femur with delayed healing TBI (traumatic brain injury) Social History Smoking/Tobacco Use Status: Current every day Tobacco Type: cigarettes Years smoked: 24 Smoking risk assessment performed?: Yes Alcohol Intake: former Drug use: Daily Substance use type: marijuana Details: methadone Housing: other Do you feel safe at home: Yes Do you feel safe in your relationship?: Yes Additional Social history: homeless and moving from place to place
[2025-02-13] MEDS: Loperamide 2 MG CAP PO (02:51)
[2025-02-13 02:54] VITALS: PULSE 65; RESP 18; O2SAT 98
== END 2025-02-13 02:54 | disposition home or self-care (01) ==
PROVIDERS: Emergency Provider Emergency Medicine; PCP Family Medicine
DX: R11.0 Nausea (principal); R19.7 Diarrhea, unspecified; Z59.41 Food insecurity
CPT/HCPCS: 99283

== ENCOUNTER 2025-03-26 12:27 | Emergency (ER) | payer MEDICAID, SELFPAY ==
[2025-03-26 12:27] VITALS: BP 126/83; PULSE 76; RESP 16; TEMP 36.9; O2SAT 98
[2025-03-26 12:32] VITALS: BP 126/83; PULSE 76; RESP 16; TEMP 36.9; O2SAT 98
--- NOTE | 2025-03-26 12:53 | W.ED.GENAD ---
Discharge Plan Disposition Patient Disposition: Home Discharge Details Clinical Impression: Moderate opioid dependence on maintenance therapy, Nausea vomiting and diarrhea, Acute viral syndrome Primary Care Provider: John Brady ED Provider: Oz Harding Home Meds and New Rx's Prescriptions: No Action pantoprazole 40 mg tablet,delayed release (DR/EC) 40 mg PO DAILY Patient Comments: TAKE ONE TABLET BY MOUTH EVERY DAY doxycycline hyclate 100 mg capsule 100 mg PO BID Patient Comments: TAKE ONE CAPSULE BY MOUTH TWICE A DAY methadone 10 mg/mL concentrate 180 mg PO QDAY Patient Comments: took today, but vomited back up methylphenidate HCl 20 mg tablet 20 mg PO BID levetiracetam 500 mg tablet 500 mg PO BID Patient Comments: TAKE ONE TABLET BY MOUTH TWICE A DAY gabapentin 800 mg tablet 800 mg PO TID Patient Comments: TAKE ONE TABLET BY MOUTH THREE TIMES A DAY Xarelto 20 mg tablet 20 mg PO DAILY Patient Comments: TAKE ONE TABLET BY MOUTH EVERY EVENING promethazine 25 mg tablet 25 mg PO QID PRNQty: 30 0RF chlorhexidine gluconate 0.12 % mouthwash 15 ml buccal BID PRN Rx Instructions: swish and spit twice per day oxycodone-acetaminophen 10-650 mg tablet 10 tab PO BID PRN Discharge Instructions Instructions: Nausea and Vomiting, Adult ED Additional Instructions: Your evaluated today for nausea and vomiting and I suspect likely viral syndrome as he reported multiple close contacts with COVID infection recently. Today you declined a COVID test. Your vital signs are all within normal limits, as such I would recommend returning home using [id number] pain relievers such as Tylenol ibuprofen help manage your symptoms, as well as drinking plenty of fluids. You have also been prescribed antinausea medication. A care management referral was placed to help you with housing. Please follow-up with your primary care provider regarding your visit to the emergency department today. Be sure to discuss results of all test performed here today to include radiology, and laboratory testing as well as results for any pending cultures. Should your symptoms worsen, or if you develop new concerning symptoms, please return immediately emergency department for further evaluation. Stand Alone Forms: Portal Information HPI General Date/Time Provider Initiated Documentation: 03/26/25 12:29. HPI Narrative: MDM/Narrative: 39-year-old male past med history of opioid dependence/abuse, chronic homelessness and cyclic vomiting presents for nausea vomiting diarrhea. Endorses multiple ill contacts who tested positive for COVID. Exam was unremarkable. Vital signs within normal limits. Given presentation and history we will obtain COVID flu RSV testing, and treat patient's nausea and vomiting. ED course: Patient is refused COVID testing stating that he took a test yesterday which was negative. He also declined Tylenol ibuprofen. Treated with patient to verify methadone dosage of 180 mg p.o., as well as 2.5 mg of droperidol IM patient remained stable with no vital sign normalities he was discharged to follow-up with PCP Clinical impression: -Opioid abuse and dependence - Nausea vomiting diarrhea - Viral syndrome Disposition: Discharge HPI: 39-year-old presents for evaluation of nausea vomiting diarrhea x 1 day. States he is currently living in a camper, multiple people tested positive for COVID. Denies any other new or concerning symptoms. Notes that he did not take his methadone today. ROS: Negative besides as mentioned above Exam: Gen: A&O NAD HEENT: NCAT, EOMI, not icteric. External ears normal. No rhinorrhea. Moist mucous membranes. Neck: Supple, full range of motion, no observable masses, No meningeal sign. Lungs: No Respiratory distress. CV: RRR, no edema. Abdomen: Soft, nondistended, No rebound tenderness. MSK: No joint swelling, no redness. Skin: No rashes, petechiae, lesions. Normal color per patient. Neuro: Normal Gait, Grossly intact. Psych: Appropriate for situation. Related Data Home Medications Medication Instructions Recorded Confirmed methadone 10 mg/mL oral concentrate 180 mg PO QDAY 04/29/23 03/26/25 methylphenidate HCl 20 mg tablet 20 mg PO BID 07/20/23 03/26/25 gabapentin 800 mg tablet 800 mg PO TID 06/06/24 03/26/25 levetiracetam 500 mg tablet 500 mg PO BID 06/06/24 03/26/25 rivaroxaban 20 mg tablet (Xarelto) 20 mg PO DAILY 08/07/24 03/26/25 doxycycline hyclate 100 mg capsule 100 mg PO BID 08/09/24 03/26/25 pantoprazole 40 mg tablet,delayed 40 mg PO DAILY 08/09/24 03/26/25 release promethazine 25 mg tablet 25 mg PO QID PRN #30 tabs 08/21/24 03/26/25 chlorhexidine gluconate 0.12 % 15 ml buccal BID PRN 09/19/24 03/26/25 mouthwash oxycodone-acetaminophen 10 mg-650 10 tab PO BID PRN 12/25/24 03/26/25 mg tablet Previous Rx's Medication Instructions Recorded promethazine 25 mg tablet 25 mg PO QID PRN #30 tabs 08/21/24 Allergies Allergy/AdvReac Type Severity Reaction Status Date / Time Penicillins Allergy Severe Anaphylaxis Verified 03/26/25 12:36 venom-honey bee Allergy Severe Anaphylaxis Verified 03/26/25 12:36 General Stated Complaint: Nausea/Vomit/Diar SALVADOR: 4 Course Vital Signs Vital signs: Vital Signs Temperature 36.9 C 03/26/25 12:27 Pulse 76 03/26/25 12:27 Respiratory Rate 16 03/26/25 12:27 Blood Pressure 126/83 03/26/25 12:27 Pulse Oximetry 98 03/26/25 12:27 Temperature 36.9 C 03/26/25 12:32 Temperature Source Tympanic 03/26/25 12:32 Pulse 76 03/26/25 12:32 Respiratory Rate 16 03/26/25 12:32 Blood Pressure 126/83 03/26/25 12:32 Pulse Oximetry 98 03/26/25 12:32 Pain Level 10 03/26/25 12:32 Medical Decision Making Quality:SDOH Health Related Social Needs: Health related social needs food insecurity PFSH All Active Problems (Updated 03/26/25 @ 12:57 by Oz Harding MD) Nausea vomiting and diarrhea (Acute) Acute viral syndrome (Acute) Moderate opioid dependence on maintenance therapy (Acute) Medical History Open fracture of femur with delayed healing TBI (traumatic brain injury) Social History Smoking/Tobacco Use Status: Current every day Tobacco Type: cigarettes Years smoked: 24 Smoking risk assessment performed?: Yes Alcohol Intake: former Drug use: Daily Substance use type: marijuana Details: methadone Housing: other Do you feel safe at home: Yes Do you feel safe in your relationship?: Yes Additional Social history: homeless and moving from place to place
[2025-03-26] MEDS: Methadone Liquid 10 MG/ML 180 MG PO (13:38)
[2025-03-26] MEDS: Droperidol 5 MG/2 ML VIAL 2.5 MG IM (13:43)
--- NOTE | 2025-03-27 08:35 | NUR.NOTE ---
Patient's called asking if the ambulance came to their camper (it is hard to get him out of the camper to bring him to the ED) would they be able to administer the medication shot that he received in the ED yesterday. He keeps vomiting the oral medication that he has. I told her to call the PCP and see if it would be possible to get a rectal medication and then he would not vomit it up. I also told her that he can return to the ED if he is still sick. Nursing Note:
== END 2025-03-26 14:01 | disposition home or self-care (01) ==
PROVIDERS: Emergency Provider General Practice; PCP Family Medicine
DX: F11.20 Opioid dependence, uncomplicated (principal); R11.2 Nausea with vomiting, unspecified; R19.7 Diarrhea, unspecified; B34.9 Viral infection, unspecified
CPT/HCPCS: 99283 ×2; 87637; J1790

== ENCOUNTER 2025-03-27 09:20 | Emergency (ER) | payer MEDICAID, SELFPAY ==
[2025-03-27 09:15] VITALS: BP 153/74; PULSE 88; RESP 18; TEMP 36.3; O2SAT 97
[2025-03-27 09:18] VITALS: BP 153/74; PULSE 88; RESP 18; TEMP 36.3; O2SAT 97
--- NOTE | 2025-03-27 09:28 | W.ED.GENAD ---
Discharge Plan Disposition Patient Disposition: Home Discharge Details Clinical Impression: Moderate opioid dependence on maintenance therapy, Nausea vomiting and diarrhea Primary Care Provider: John Brady ED Provider: Oz Harding Home Meds and New Rx's Prescriptions: New ondansetron 4 mg tablet,disintegrating 4 mg PO Q6H PRNQty: 20 0RF No Action pantoprazole 40 mg tablet,delayed release (DR/EC) 40 mg PO DAILY Patient Comments: TAKE ONE TABLET BY MOUTH EVERY DAY doxycycline hyclate 100 mg capsule 100 mg PO BID Patient Comments: TAKE ONE CAPSULE BY MOUTH TWICE A DAY methadone 10 mg/mL concentrate 180 mg PO QDAY Patient Comments: took today, but vomited back up methylphenidate HCl 20 mg tablet 20 mg PO BID levetiracetam 500 mg tablet 500 mg PO BID Patient Comments: TAKE ONE TABLET BY MOUTH TWICE A DAY gabapentin 800 mg tablet 800 mg PO TID Patient Comments: TAKE ONE TABLET BY MOUTH THREE TIMES A DAY Xarelto 20 mg tablet 20 mg PO DAILY Patient Comments: TAKE ONE TABLET BY MOUTH EVERY EVENING promethazine 25 mg tablet 25 mg PO QID PRNQty: 30 0RF chlorhexidine gluconate 0.12 % mouthwash 15 ml buccal BID PRN Rx Instructions: swish and spit twice per day oxycodone-acetaminophen 10-650 mg tablet 10 tab PO BID PRN Discharge Instructions Instructions: Hypothermia, Nausea and vomiting in adults Additional Instructions: Your evaluated today for nausea and vomiting and I suspect likely viral syndrome as he reported multiple close contacts with COVID infection recently. Today you declined a COVID test. Your vital signs are all within normal limits, as such I would recommend returning home using [id number] pain relievers such as Tylenol ibuprofen help manage your symptoms, as well as drinking plenty of fluids. You have also been prescribed antinausea medication. A care management referral was placed to help you with housing. A referral to Care management and Community services was made on your behalf. Please follow up with their office to determine how we can best help you with your housing/heating situation. Please follow-up with your primary care provider regarding your visit to the emergency department today. Be sure to discuss results of all test performed here today to include radiology, and laboratory testing as well as results for any pending cultures. Should your symptoms worsen, or if you develop new concerning symptoms, please return immediately emergency department for further evaluation.[id number] Stand Alone Forms: Portal Information Discharge Data Discharge Date/Time-TO BE ENTERED AT DEPARTURE: 03/27/25 10:41 HPI General Date/Time Provider Initiated Documentation: 03/27/25 09:21. HPI Narrative: MDM/Narrative: 39-year-old male with opioid dependence presents for nausea vomiting diarrhea. Same presentation as yesterday. Vital signs remain normal. Patient again refused COVID testing. Symptomatic treatment administered, discharged to follow-up primary care. Care management ordered given patient's high ER utilization Disposition: Home HPI: 39-year-old male with past medical history of opioid dependence on methadone, presents for evaluation of nausea, vomiting, diarrhea and feeling cold. Patient is currently main campus multiple other people tested positive for COVID and past several days. He notes that they do not of heat and has been very cold overnight. Denies any other new or concerning symptoms. Patient had the same presentation yesterday at which time he refused a COVID test and was discharged after improvement following symptomatic management. ROS: Negative besides as mentioned above Exam: Gen: A&O NAD HEENT: NCAT, EOMI, not icteric. External ears normal. No rhinorrhea. Moist mucous membranes. Neck: Supple, full range of motion, no observable masses, No meningeal sign. Lungs: No Respiratory distress. CV: RRR, no edema. Abdomen: Soft, nondistended, No rebound tenderness. MSK: No joint swelling, no redness. Skin: No rashes, petechiae, lesions. Normal color per patient. Neuro: Normal Gait, Grossly intact. Psych: Appropriate for situation. Related Data Home Medications Medication Instructions Recorded Confirmed methadone 10 mg/mL oral concentrate 180 mg PO QDAY 04/29/23 03/27/25 methylphenidate HCl 20 mg tablet 20 mg PO BID 07/20/23 03/27/25 gabapentin 800 mg tablet 800 mg PO TID 06/06/24 03/27/25 levetiracetam 500 mg tablet 500 mg PO BID 06/06/24 03/27/25 rivaroxaban 20 mg tablet (Xarelto) 20 mg PO DAILY 08/07/24 03/27/25 doxycycline hyclate 100 mg capsule 100 mg PO BID 08/09/24 03/27/25 pantoprazole 40 mg tablet,delayed 40 mg PO DAILY 08/09/24 03/27/25 release promethazine 25 mg tablet 25 mg PO QID PRN #30 tabs 08/21/24 03/27/25 chlorhexidine gluconate 0.12 % 15 ml buccal BID PRN 09/19/24 03/27/25 mouthwash oxycodone-acetaminophen 10 mg-650 10 tab PO BID PRN 12/25/24 03/27/25 mg tablet ondansetron 4 mg disintegrating 4 mg PO Q6H PRN #20 tabs 03/27/25 tablet Previous Rx's Medication Instructions Recorded promethazine 25 mg tablet 25 mg PO QID PRN #30 tabs 08/21/24 ondansetron 4 mg disintegrating 4 mg PO Q6H PRN #20 tabs 03/27/25 tablet Allergies Allergy/AdvReac Type Severity Reaction Status Date / Time Penicillins Allergy Severe Anaphylaxis Verified 03/27/25 09:18 venom-honey bee Allergy Severe Anaphylaxis Verified 03/27/25 09:18 General Stated Complaint: Nausea/Vomit/Diar SALVADOR: 3 Course Vital Signs Vital signs: Vital Signs Temperature 36.3 C L 03/27/25 09:15 Pulse 88 03/27/25 09:15 Respiratory Rate 18 03/27/25 09:15 Blood Pressure 153/74 H 03/27/25 09:15 Pulse Oximetry 97 03/27/25 09:15 Temperature 36.3 C L 03/27/25 09:18 Temperature Source Tympanic 03/27/25 09:18 Pulse 88 03/27/25 09:18 Respiratory Rate 18 03/27/25 09:18 Blood Pressure 153/74 H 03/27/25 09:18 Pulse Oximetry 97 03/27/25 09:18 Medical Decision Making Quality:SDOH Health Related Social Needs: Health related social needs food insecurity PFSH All Active Problems (Updated 03/27/25 @ 09:31 by Oz Harding MD) Nausea vomiting and diarrhea (Acute) Acute viral syndrome (Acute) Moderate opioid dependence on maintenance therapy (Acute) Medical History Open fracture of femur with delayed healing TBI (traumatic brain injury) Social History Smoking/Tobacco Use Status: Current every day Tobacco Type: cigarettes Years smoked: 24 Smoking risk assessment performed?: Yes Alcohol Intake: former Drug use: Daily Substance use type: marijuana Details: methadone Housing: other Do you feel safe at home: Yes Do you feel safe in your relationship?: Yes Additional Social history: homeless and moving from place to place
[2025-03-27] MEDS: Droperidol 5 MG/2 ML VIAL 2.5 MG IM (09:29)
--- NOTE | 2025-03-27 09:40 | PDOC.CMPRO ---
Date of service: 03/27/25 Time of Service: 09:40 Care Management Progress Note Progress Note Text Progress Note Text: CM was consulted by the ED provider to discuss heating resources for [place]. CM communicated with [employer] via [employer], sent a workload referral and the ED team regarding the referral. Additionally, CM provided RN with a brochure for [facility] ([facility]) outlining available fuel assistance programs, for [place]. CM will continue to follow up and provide support as appropriate. Social Determinants of Health Screening Will the Patient Participate in the Screening?: Unable to obtain
[2025-03-27 09:42] VITALS: TEMP 36.8
[2025-03-27] MEDS: Methadone Liquid 10 MG/ML 180 MG PO (10:35)
== END 2025-03-27 10:41 | disposition home or self-care (01) ==
PROVIDERS: Emergency Provider General Practice; PCP Family Medicine
DX: F11.20 Opioid dependence, uncomplicated (principal); R11.2 Nausea with vomiting, unspecified; R19.7 Diarrhea, unspecified
CPT/HCPCS: 99283; 99284; 96372; 87637; J1790

== ENCOUNTER 2025-03-28 00:22 | Emergency (ER) | payer MEDICAID, SELFPAY ==
[2025-03-28] VITALS (20 sets, daily range): BP systolic 118–132; BP diastolic 73–91; PULSE 73–96; RESP 18; TEMP 37; O2SAT 93–98
[2025-03-28] MEDS: Droperidol 5 MG/2 ML VIAL 2.5 MG IVP (00:49)
[2025-03-28] MEDS: Pantoprazole 40 MG VIAL IVP (00:51)
[2025-03-28] MEDS: Lactated Ringers 1,000 ML 1000 ML IV (00:53)
[2025-03-28 01:03] LABS: Abs Immature Grans 0.02 10^3/uL (0.0-0.06); HCT 45.2 % (40.0-50.0); HGB 15.1 g/dL (13.5-17.5); Immature Grans % 0.2 %; MCH 26.4 pg (27.0-33.0); MCHC 33.4 % (32.0-36.0); MCV 79 fL (80-95); MPV 10.4 fL (8.0-11.0); Platelet Count 289 10^3/uL (130-400); RBC 5.71 10^6/uL (4.36-5.78); RDW 13.5 % (11.8-14.1); RDW-SD 38.5 fL; WBC 8.02 10^3/uL (4.4-10.8)
[2025-03-28 01:21] LABS: Lipase 29 U/L (<53); Magnesium 1.8 mg/dL (1.6-2.6)
[2025-03-28 01:23] LABS: ALT 46 U/L (10-49); AST 48 U/L (<34); Albumin 4.8 g/dL (3.4-5.0); Alkaline Phosphatase 119 U/L (46-116); Anion Gap 10.3 mmol/L (3-11); BUN 10 mg/dL (9-23); Bilirubin, Total 0.40 mg/dL (0.2-1.2); CO2 18.7 mmol/L (20.0-31.0); Calcium 9.3 mg/dL (8.3-10.6); Chloride 108 mmol/L (98-107); Glucose 102 mg/dL (74-106); Potassium 3.9 mmol/L (3.5-5.1); Sodium 137 mmol/L (136-145); Total Protein 8.2 g/dL (5.7-8.2)
--- NOTE | 2025-03-28 01:24 | W.ED.GENAD ---
Discharge Plan Disposition Patient Disposition: Home Condition: Good Discharge Details Clinical Impression: Cardiac murmur, Nausea & vomiting, Dehydration Primary Care Provider: John Brady ED Provider: Ar Pierce Home Meds and New Rx's Prescriptions: No Action pantoprazole 40 mg tablet,delayed release (DR/EC) 40 mg PO DAILY Patient Comments: TAKE ONE TABLET BY MOUTH EVERY DAY doxycycline hyclate 100 mg capsule 100 mg PO BID Patient Comments: TAKE ONE CAPSULE BY MOUTH TWICE A DAY methadone 10 mg/mL concentrate 180 mg PO QDAY Patient Comments: took today, but vomited back up methylphenidate HCl 20 mg tablet 20 mg PO BID levetiracetam 500 mg tablet 500 mg PO BID Patient Comments: TAKE ONE TABLET BY MOUTH TWICE A DAY gabapentin 800 mg tablet 800 mg PO TID Patient Comments: TAKE ONE TABLET BY MOUTH THREE TIMES A DAY Xarelto 20 mg tablet 20 mg PO DAILY Patient Comments: TAKE ONE TABLET BY MOUTH EVERY EVENING promethazine 25 mg tablet 25 mg PO QID PRNQty: 30 0RF chlorhexidine gluconate 0.12 % mouthwash 15 ml buccal BID PRN Rx Instructions: swish and spit twice per day oxycodone-acetaminophen 10-650 mg tablet 10 tab PO BID PRN ondansetron 4 mg tablet,disintegrating 4 mg PO Q6H PRNQty: 20 0RF Discharge Instructions Instructions: Dehydration, Adult ED Additional Instructions: At this time your workup is returned reassuring. Your COVID, flu, and RSV testing was negative. Your electrolytes are normal. Your kidney function and labs are all otherwise normal. Your symptoms may be secondary to a virus, cyclic vomiting syndrome, or gastric irritation. You have been rehydrated with 2 L, and have a good hydration status now. Please stick with a bland diet, avoid spicy, tomato-based, or very greasy foods. Additionally, a heart murmur was noted on your exam today. Please follow-up closely with your primary care provider for reassessment and nonemergent outpatient echocardiogram for further evaluation of this murmur. If you notice any worsening of your symptoms, or any new symptoms such as vomiting, diarrhea, fever, chills, shortness of breath, chest pain, numbness, weakness, or fainting , please return immediately to the emergency department for reevaluation. Please follow up with your primary care provider as soon as possible for reassessment and reevaluation. As always, it was a pleasure participating in your medical care today. Stand Alone Forms: Portal Information Referrals: John Brady [Primary Care Provider, Medicine] [facility] General Date/Time Provider Initiated Documentation: 03/28/25 01:23. HPI Narrative: This is a 39-year-old male with a past medical history of umbilical hernia repair in 2019, previous hep C which was treated, previous alcohol abuse, previous opiate abuse, parotid mass, schizophrenia, depression, anxiety, and then this past October 2023 had a 20 to 30 foot fall landing on rocks with subsequent intercranial hemorrhage, multiple frontal bone fractures with subsequent surgery, right femur fracture, right patellar fracture, right tib-fib fracture and right calcaneal fractures and left talus fracture,previous pulmonary emboli, on Eliquis, previous infectious etiology in his postoperative femur hardware, who presents today for evaluation of of nausea and vomiting and feeling unwell. Patient states that multiple people have recently been diagnosed with COVID and his current habitus. He was here on 03/26 and refused COVID testing at that time, stating that he had had testing at home which was negative. He was treated symptomatically, and then came back on 03/27/2025 after continued feeling unwell nausea and vomiting. Patient was treated symptomatically, vital signs stable, he was discharged home. He presents today via EMS for continued vomiting. He states that he feels unwell in general, and his vomitus he has noted a small amount of blood speckling. He does not know the color of his stool, nor is he aware of any blood in his stool. He has not had anything else to history. He admits to generalized lower abdominal discomfort. No other complaints. Related Data Home Medications Medication Instructions Recorded Confirmed methadone 10 mg/mL oral concentrate 180 mg PO QDAY 04/29/23 03/28/25 methylphenidate HCl 20 mg tablet 20 mg PO BID 07/20/23 03/28/25 gabapentin 800 mg tablet 800 mg PO TID 06/06/24 03/28/25 levetiracetam 500 mg tablet 500 mg PO BID 06/06/24 03/28/25 rivaroxaban 20 mg tablet (Xarelto) 20 mg PO DAILY 08/07/24 03/28/25 doxycycline hyclate 100 mg capsule 100 mg PO BID 08/09/24 03/28/25 pantoprazole 40 mg tablet,delayed 40 mg PO DAILY 08/09/24 03/28/25 release promethazine 25 mg tablet 25 mg PO QID PRN #30 tabs 08/21/24 03/28/25 chlorhexidine gluconate 0.12 % 15 ml buccal BID PRN 09/19/24 03/28/25 mouthwash oxycodone-acetaminophen 10 mg-650 10 tab PO BID PRN 12/25/24 03/28/25 mg tablet ondansetron 4 mg disintegrating 4 mg PO Q6H PRN #20 tabs 03/27/25 03/28/25 tablet Previous Rx's Medication Instructions Recorded promethazine 25 mg tablet 25 mg PO QID PRN #30 tabs 08/21/24 ondansetron 4 mg disintegrating 4 mg PO Q6H PRN #20 tabs 03/27/25 tablet Allergies Allergy/AdvReac Type Severity Reaction Status Date / Time Penicillins Allergy Severe Anaphylaxis Verified 03/28/25 00:23 venom-honey bee Allergy Severe Anaphylaxis Verified 03/28/25 00:23 General Stated Complaint: Nausea/Vomit/Diar SALVADOR: 3 Exam Narrative Exam Narrative: 1.Const: Well-nourished, Well-developed, appearing stated age 2.Eyes: PERRL, no conjunctival injection, and symmetrical lids. 3.ENT: Atraumatic external nose and ears. Moist MM. Neck: Symmetric, trachea midline, No thyromegaly. 4.CVS: +S1/S2, cardiac murmur present peripheral pulses 2+ and equal in all extremities. Brisk capillary refill in all extremities. 5.RESP: Unlabored respiratory effort. Clear to auscultation bilaterally. No wheezes rales or rhonchi 6.GI: Soft, nondistended, no guarding or rebound, tenderness is present in the right lower and left lower quadrants. No focal pain at McBurney's point specifically though. No significant upper abdominal tenderness. 7.MSK: Normocephalic/Atraumatic, Extremities w/o deformity or ttp No cyanosis or clubbing, Normal movement of all extremities 8.Skin: Warm, Dry. No rashes or lesions. 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 Sensation grossly intact, no focal neurologic deficits. 10.Psych: (AAO) x3. Appropriate mood and affect Cardiac murmur present Course Vital Signs Vital signs: Vital Signs Temperature 37.0 C 03/28/25 00:18 Pulse 87 03/28/25 00:18 Respiratory Rate 18 03/28/25 00:18 Blood Pressure 131/91 H 03/28/25 00:18 Pulse Oximetry 98 03/28/25 00:18 Temperature 37.0 C 03/28/25 00:18 Temperature Source Oral 03/28/25 00:18 Pulse 87 03/28/25 00:18 Respiratory Rate 18 03/28/25 00:18 Blood Pressure 131/91 H 03/28/25 00:18 Pulse Oximetry 98 03/28/25 00:18 Oxygen Delivery Method Room Air 03/28/25 00:18 Oxygen Flow Rate 0 03/28/25 00:18 Lab/Test Results Lab/Test Results: Laboratory Tests Range/Units 03/28/25 00:57 WBC (4.4-10.8) 10^3/uL 8.02 RBC (4.36-5.78) 10^6/uL 5.71 Hgb (13.5-17.5) g/dL 15.1 Hct (40.0-50.0) % 45.2 MCV (80-95) fL 79 L MCH (27.0-33.0) pg 26.4 L MCHC (32.0-36.0) % 33.4 RDW (11.8-14.1) % 13.5 Plt Count (130-400) 10^3/uL 289 MPV (8.0-11.0) fL 10.4 Immature Gran % % 0.2 Neutrophils % % 76.5 Lymphocytes % % 17.3 Monocytes % % 5.4 Eosinophils % % 0.4 Basophils % % 0.2 Nucleated RBC % (0.0-0.3) % 0.0 Absolute Neutrophils (1.2-6.7) 10^3/uL 6.13 Absolute Lymphocytes (1.2-3.4) 10^3/uL 1.39 Absolute Monocytes (0.1-0.8) 10^3/uL 0.43 Absolute Eosinophils (0.0-0.7) 10^3/uL 0.03 Absolute Basophils (0.0-0.2) 10^3/uL 0.02 VBG Lactate (<or=2.0) mmol/L 1.6 Sodium (136-145) mmol/L 137 Potassium (3.5-5.1) mmol/L 3.9 Chloride (98-107) mmol/L 108 H Carbon Dioxide (20.0-31.0) mmol/L 18.7 L Anion Gap (3-11) mmol/L 10.3 BUN (9-23) mg/dL 10 Creatinine (0.73-1.18) mg/dL 0.8 Est GFR (CKD-EPI 2020) (mL/min/1.73m2) 116.87 Glucose (74-106) mg/dL 102 Calcium (8.3-10.6) mg/dL 9.3 Magnesium (1.6-2.6) mg/dL 1.8 Total Bilirubin (0.2-1.2) mg/dL 0.40 AST (<34) U/L 48 H ALT (10-49) U/L 46 Alkaline Phosphatase (46-116) U/L 119 H Total Protein (5.7-8.2) g/dL 8.2 Albumin (3.4-5.0) g/dL 4.8 Lipase (<53) U/L 29 Medical Decision Making This is a 39-year-old male with a past medical history of umbilical hernia repair in 2018, previous hep C which was treated, previous alcohol abuse, previous opiate abuse, parotid mass, schizophrenia, depression, anxiety, and then this past October 2023 had a 20 to 30 foot fall landing on rocks with subsequent intercranial hemorrhage, multiple frontal bone fractures with subsequent surgery, right femur fracture, right patellar fracture, right tib-fib fracture and right calcaneal fractures and left talus fracture,previous pulmonary emboli, on Eliquis, previous infectious etiology in his postoperative femur hardware, who presents today for evaluation of of nausea and vomiting and feeling unwell. Patient states that multiple people have recently been diagnosed with COVID and his current habitus. He was here on 03/26 and refused COVID testing at that time, stating that he had had testing at home which was negative. He was treated symptomatically, and then came back on 03/27/2025 after continued feeling unwell nausea and vomiting. Patient was treated symptomatically, vital signs stable, he was discharged home. He presents today via EMS for continued vomiting. He states that he feels unwell in general, and his vomitus he has noted a small amount of blood speckling. He does not know the color of his stool, nor is he aware of any blood in his stool. He has not had anything else to history. He admits to generalized lower abdominal discomfort. No other complaints. Exam demonstrates mild generalized abdominal tenderness in the right lower and left lower abdominal quadrants. Mucous membranes are dry. No guarding or rebound otherwise. He does have a murmur noted which sounds to be systolic. It is mild. He denies history of this, but at this time his historical accuracy seems to be slightly inconsistent. With his abdominal tenderness and vomiting we will get CT imaging, will rehydrate, give droperidol, will monitor closely and reassess. Differential at this time includes viral gastroenteritis, less likely appendicitis, electrolyte abnormality, or pancreatitis. 4:22 AM Patient's laboratory workup has returned. Vital signs remain notably benign and reassuring with no tachycardia, hypertension or hypotension, fever, or other abnormality. Laboratory workup shows normal white count, no bandemia or left shift. Lactate normal. Electrolytes benign. Lipase normal. COVID flu and RSV testing negative. CT scan of the abdomen shows no evidence of abnormality. No appendicitis, or other pathology per radiology. Patient is resting well, he has received 2 L of IV fluids and is tolerated this well. With no white count or fever, there is no evidence to suggest bacterial sepsis at this time. He has no Janeway lesions or Osler nodes. No evidence to suspect severe infectious endocarditis. He did have a murmur noted on initial exam, he is uncertain if this is new or not. We will recommend outpatient follow-up for echo. Patient has been observed for the last 4 to 5 hours, he has slept well, and has had no additional vomiting. No evidence of obstruction. Patient is stable for discharge. Suspect potential viral etiology, gastric irritation or gastritis, or a reflection of cyclic vomiting syndrome. Discussed red flags for which to return. I have extensively reviewed the treatment plan and discharge instructions with the patient. I have addressed all patient concerns at this time. The patient was made aware of what symptoms to monitor for that would warrant a return to the emergency department. Discussed the plan with the patient, they demonstrate verbal understanding and agreement with our assessment and plan at this time. The documentation in this chart was dictated using Tap2[employer] dictation software. Please excuse any dictation errors. FINDINGS: Limitations: Artifact from metallic hardware limits evaluation of the surrounding tissues. Liver: Hepatic steatosis. Gallbladder and biliary ducts: Biliary ductal dilatation. Cholelithiasis. Pancreas: No CT evidence for acute pancreatitis. Spleen: No splenomegaly. Adrenal glands: No mass. Kidneys and ureters: No hydronephrosis or evidence for pyelonephritis. Stomach and bowel: No intestinal obstruction is appreciated. Appendix: No evidence of appendicitis. Intraperitoneal space: No free air. Vasculature: No abdominal aortic aneurysm. Lymph nodes: Nonspecific mesenteric lymph nodes. Urinary bladder: No acute findings. Reproductive: No acute findings. Bones/joints: Right femoral seferino. Artifact limits evaluation of the surrounding tissues. Soft tissues: No pertinent acute abnormality seen. IMPRESSION: 1. No acute findings to explain reported symptoms. 2. Nonacute findings as outlined above. Thank you for allowing us to participate in the care of your patient. Dictated and Authenticated by: Kristan Woodall MD 03/28/2025 1:48 AM Eastern Time ([place] & [place]) Quality:SDOH Health Related Social Needs: Health related social needs food insecurity PFSH All Active Problems (Updated 03/28/25 @ 04:31 by Ar Pierce DO) Dehydration (Acute) Nausea & vomiting (Acute) Cardiac murmur (Acute) Nausea vomiting and diarrhea (Acute) Acute viral syndrome (Acute) Moderate opioid dependence on maintenance therapy (Acute) Medical History Open fracture of femur with delayed healing TBI (traumatic brain injury) Social History Smoking/Tobacco Use Status: Current every day Tobacco Type: cigarettes Years smoked: 24 Smoking risk assessment performed?: Yes Alcohol Intake: former Drug use: Daily Substance use type: marijuana Details: methadone Housing: other Do you feel safe at home: Yes Do you feel safe in your relationship?: Yes Additional Social history: homeless and moving from place to place
[2025-03-28] MEDS: Normal Saline - Diluent 50 ML VIAL IJ (01:27)
[2025-03-28] MEDS: Omnipaque 350 MG/ML 100 ML BTL IJ (01:27)
[2025-03-28] MEDS: Normal Saline Flush 10 ML SYR IVP (01:28)
--- NOTE | 2025-03-28 01:29 | DI.CT_ITS ---
Exam(s) CT ABDOMEN PELVIS W EXAM: CT ABDOMEN PELVIS W CLINICAL HISTORY: rlq pain and vomiting. TECHNIQUE: Imaging Protocol: Axial computed tomography images with coronal and sagittal reformatted images were created and reviewed CONTRAST MATERIAL: Intravenous: Omnipaque-350 100cc Oral: None COMPARISON: CT CT ABDOMEN PELVIS W from 08/21/2024 FINDINGS: VISUALIZED LUNG BASES: No nodules nor pleural effusions evident. ABDOMEN: There is no ascites. LIVER: There are no significant focal hepatic lesions evident. No dilated intrahepatic ducts. GALLBLADDER/BILIARY: No obvious gallbladder pathology. There is no significant dilatation of intrahepatic ducts but this CBD diameter is prominent, measuring up to 13 mm. There is no obvious calculus nor mass in the CBD. PANCREAS: No evidence of pancreatic mass nor dilatation of the pancreatic duct. SPLEEN: Spleen is not enlarged. No obvious intrasplenic lesions. Splenic and portal veins are patent. ADRENALS: There are no significant adrenal masses. KIDNEYS:No cysts evident. No solid renal masses. No calculi nor hydronephrosis.. ABDOMINAL AORTA: Abdominal aorta is not enlarged. LYMPH NODES:There is no retroperitoneal nor paraaortic adenopathy. ABDOMINAL WALL: No evidence of significant anterior abdominal wall nor inguinal hernia. GI: There is no evidence of bowel obstruction, free air, nor abscess. PELVIS: GI: No evidence of appendicitis.No significant sigmoid diverticular disease. No diverticulitis. LYMPH NODES: There is no intrapelvic nor inguinal adenopathy. REPRODUCTIVE: Prostate size is normal. Seminal vesicles unremarkable. URINARY BLADDER: No calculi nor obvious masses evident OSSEOUS: Superior aspect of a right femoral seferino is noted. IMPRESSION: 1. No evidence of acute appendicitis nor diverticulitis. 2. No obvious gallbladder pathology but the CBD is prominent, measuring up to 13 mm. There does not appear to be a radiopaque calculus in the lower CBD nor mass at this level nor within the pancreatic head. Correlation with appropriate blood work recommended. Preliminary V rad report was reviewed. RADIATION DOSE DELIVERED: 731.21mGy.cm Total DLP DATA REPOSITORY: All CT scans at this facility are submitted to the National Radiology Data Registry (NRDR) Dose Index Registry (DIR) with the [employer] (A[employer]). RADIATION OPTIMIZATION: All CT scans at this facility use at least one of these dose optimization techniques: automated exposure control; mA and/or kV adjustment per patient size (includes targeted exams where dose is matched to clinical indication); or iterative reconstruction.
[2025-03-28 01:39] LABS: COVID-19 PCR Negative (Negative); RSV PCR Negative (Negative)
--- NOTE | 2025-03-28 01:48 | DI.VRAD_ITS ---
PROCEDURE INFORMATION: Exam: CT Abdomen And Pelvis With Contrast Exam date and time: 03/28/2025 1:13 AM Age: 39 years old Clinical indication: Abdominal pain; Localized; Right lower quadrant (rlq); Prior surgery; Surgery date: 6+ months; Surgery type: Femur seferino; Rlq pain and vomiting TECHNIQUE: Imaging protocol: Computed tomography of the abdomen and pelvis with contrast. Radiation optimization: All CT scans at this facility use at least one of these dose optimization techniques: automated exposure control; mA and/or kV adjustment per patient size (includes targeted exams where dose is matched to clinical indication); or iterative reconstruction. Contrast material: [id number]; Contrast volume: 100 ml; Contrast route: INTRAVENOUS (IV); COMPARISON: CT ABDOMEN PELVIS W 08/21/2024 2:14 PM FINDINGS: Limitations: Artifact from metallic hardware limits evaluation of the surrounding tissues. Liver: Hepatic steatosis. Gallbladder and biliary ducts: Biliary ductal dilatation. Cholelithiasis. Pancreas: No CT evidence for acute pancreatitis. Spleen: No splenomegaly. Adrenal glands: No mass. Kidneys and ureters: No hydronephrosis or evidence for pyelonephritis. Stomach and bowel: No intestinal obstruction is appreciated. Appendix: No evidence of appendicitis. Intraperitoneal space: No free air. Vasculature: No abdominal aortic aneurysm. Lymph nodes: Nonspecific mesenteric lymph nodes. Urinary bladder: No acute findings. Reproductive: No acute findings. Bones/joints: Right femoral seferino. Artifact limits evaluation of the surrounding tissues. Soft tissues: No pertinent acute abnormality seen. IMPRESSION: 1. No acute findings to explain reported symptoms. 2. Nonacute findings as outlined above. Dictated and Authenticated by: Kristan Woodall MD. Orderin Kari Joyner MD
[2025-03-28] MEDS: Normal Saline 1,000 ML 1000 ML IV (02:35)
== END 2025-03-28 07:28 | disposition home or self-care (01) ==
PROVIDERS: Emergency Provider Student in an Organized Health Care Education/Training Program; PCP Family Medicine
DX: E86.0 Dehydration (principal); R11.2 Nausea with vomiting, unspecified; R01.1 Cardiac murmur, unspecified
CPT/HCPCS: 99284; 99285; 96374; 96375; 80053; 83690; 87637; 96361; 74177; 83605; 83735; 85025; J1790; J2470; J3490